=== PATIENT | female | born 2000 | race Caucasian/White ===

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

== ENCOUNTER → 2018-01-07 10:26 | Outpatient (REF) | payer OTHER, SELFPAY | LOC: LAB 10:26 | PROVIDERS: Visit Provider Nurse Practitioner Family | DX: N30.01 Acute cystitis with hematuria (principal) | CPT/HCPCS: 87086; 87088; 87186 ==

== ENCOUNTER → 2018-02-10 16:30 | Outpatient (CLI) | payer OTHER, SELFPAY ==
[2018-02-10 16:33] LABS: Microscopic, Urine URINE MICROSCOPIC (MICROSCOPIC)
[2018-02-10 16:56] LABS: Urine Pregnancy, HCG Qual. Negative (Negative)
[2018-02-10 17:13] LABS: Appearance,Urine CLEAR (Clear); Bilirubin,Urine Negative (Negative); Blood, Urine Negative (Negative); Color,Urine YELLOW (Yellow); Glucose,Urine (UA) Negative (Negative); Ketones,Urine Negative (Negative); Leukocyte Esterase,Urine Negative (Negative); Nitrate,Urine Negative (Negative); Protein,Urine Negative (Negative); Specific Gravity, Urine <= 1.005 (1.005-1.030); Urobilinogen,Urine 0.2 EU/dl (0.2)
[2018-02-10 17:30] LABS: Basophils % 0.3 % (0.1-2.0); Eosinophils # 0.2 K/mm3 (0.0-0.4); Eosinophils % 2.3 % (0.1-12.0); Hematocrit 44.9 % (37.0-47.0); Hemoglobin 14.6 g/dL (12.2-16.2); Lymphocytes % 25.9 K/mm3 (10-50); Mean Corpuscular HGB Conc 32.5 g/dL (31.8-35.4); Mean Corpuscular Hemoglobin 29.5 pg (27.0-31.2); Mean Corpuscular Volume 90.6 fl (81-99); Mean Platelet Volume 8.4 fl (7.4-10.4); Monocytes # 0.4 K/mm3 (0.1-1.0); Monocytes % 5.5 % (1.7-9.3); Neutrophils # 5.1 K/mm3 (1.8-7.8); Neutrophils % 65.9 % (37.0-80.0); Platelet Count 286 K/mm3 (142-424); Red Blood Count 4.95 M/mm3 (4.20-5.40); Red Cell Distribution Width 12.9 % (11.5-17.5); White Blood Count 7.8 K/mm3 (4.5-13.0)
[2018-02-10 17:45] LABS: Bacteria,Urine Trace /lpf; WBC,Urine Occasional #/hpf (0-3)
[2018-02-10 18:39] LABS: Anion Gap 12.9 mEq/L (5-15); Blood Urea Nitrogen 11 mg/dL (7-18); Carbon Dioxide 27 mmol/L (21.0-32.0); Chloride 102 mmol/L (98-107); Creatinine,Serum 0.64 mg/dL (0.55-1.02); Estimated Glomerular Filt Rate 120 ml/min (>60); GFR (African American) 145 ML/MIN (>60); Glucose 64 mg/dL (74-106); Potassium 3.9 mmoL/L (3.5-5.1); Sodium 138 mmol/L (136-145)
== END ==
PROVIDERS: Visit Provider Surgery
DX: Z01.818 Encounter for other preprocedural examination (principal); K42.0 Umbilical hernia with obstruction, without gangrene
CPT/HCPCS: 36415; 80048; 81001; 81025; 85025

== ENCOUNTER → 2018-02-20 10:32 | Outpatient (REF) | payer OTHER, SELFPAY ==
[2018-02-20 17:20] LABS: Free T4 (Free Thyroxine) 0.92 ng/dl (0.78-1.34); Thyroid Stimulating Hormone 1.66 uIU/ml (0.516-4.13)
== END ==
LOC: LAB 10:32
PROVIDERS: Visit Provider Nurse Practitioner Family
DX: R53.83 Other fatigue (principal)
CPT/HCPCS: 84439; 84443

== ENCOUNTER → 2018-04-30 08:21 | Outpatient (POV) | payer OTHER, SELFPAY ==
[2018-04-30 10:50] LABS: Basophils % 0.5 % (0.1-2.0); Eosinophils # 0.2 K/mm3 (0.0-0.4); Eosinophils % 2.9 % (0.1-12.0); Hematocrit 46.3 % (37.0-47.0); Hemoglobin 14.5 g/dL (12.2-16.2); Lymphocytes % 30.2 K/mm3 (10-50); Mean Corpuscular HGB Conc 31.3 g/dL (31.8-35.4); Mean Corpuscular Hemoglobin 28.3 pg (27.0-31.2); Mean Corpuscular Volume 90.4 fl (81-99); Mean Platelet Volume 8.4 fl (7.4-10.4); Monocytes # 0.3 K/mm3 (0.1-1.0); Monocytes % 4.9 % (1.7-9.3); Neutrophils # 4.1 K/mm3 (1.8-7.8); Neutrophils % 61.6 % (37.0-80.0); Platelet Count 301 K/mm3 (142-424); Red Blood Count 5.12 M/mm3 (4.20-5.40); Red Cell Distribution Width 13.1 % (11.5-17.5); White Blood Count 6.6 K/mm3 (4.5-13.0)
[2018-04-30 11:49] LABS: Alanine Aminotransferase 24 U/L (12-78); Albumin Level 4.3 gm/dL (3.4-5.0); Albumin/Globulin Ratio 1.3 (1.1-1.8); Alkaline Phosphatase 103 U/L (46-116); Anion Gap 11.6 mEq/L (5-15); Aspartate Amino Transferase 13 U/L (15-37); Bilirubin,Total 0.4 mg/dL (0.2-1.0); Blood Urea Nitrogen 5 mg/dL (7-18); Calcium 9.2 mg/dL (8.5-10.1); Carbon Dioxide 27 mmol/L (21.0-32.0); Chloride 105 mmol/L (98-107); Creatinine,Serum 0.68 mg/dL (0.55-1.02); Estimated Glomerular Filt Rate 111 ml/min (>60); GFR (African American) 135 ML/MIN (>60); Globulin 3.4 gm/dl (1.3-3.2); Glucose 90 mg/dL (74-106); Potassium 3.6 mmoL/L (3.5-5.1); Sodium 140 mmol/L (136-145); Thyroid Stimulating Hormone 2.64 uIU/ml (0.516-4.13); Total Protein,Serum 7.7 gm/dL (6.4-8.2)
[2018-05-01 09:11] LABS: HIV Screen 4th Generation wRfx Non Reactive (Non Reactive)
[2018-05-02 17:10] LABS: Neisseria gonorrhoeae, NAA Negative (Negative); Rapid Plasma Reagin Ab Titer Non Reactive (NonRea<1:1); Vitamin D 25 Hydroxy 13.5 ng/mL (30.0-100.0)
== END ==
PROVIDERS: Visit Provider Pediatrics
DX: F32.1 Major depressive disorder, single episode, moderate (principal); Z11.3 Encounter for screening for infections with a predominantly sexual mode of transmission
CPT/HCPCS: 36415; 80053; 82652; 84443; 85025; 86592; 86703; 87491; 87591; G0432

== ENCOUNTER → 2018-05-28 09:22 | Outpatient (POV) | payer OTHER, SELFPAY | PROVIDERS: Visit Provider Pediatrics | DX: Z00.00 Encounter for general adult medical examination without abnormal findings (principal) ==

== ENCOUNTER 2019-06-11 20:46 | Observation (INO) ==
--- NOTE | 2019-06-11 21:12 | Emergency Department Note ---
ED Disposition Clinical Impression: Overdose by acetaminophen Qualifiers: Encounter type: initial encounter Injury intent: intentional self-harm Qualified Code(s): T39.1X2A - Poisoning by 4-Aminophenol derivatives, intentional self-harm, initial encounter Bupropion overdose Qualifiers: Encounter type: initial encounter Injury intent: intentional self-harm Qualified Code(s): T43.292A - Poisoning by other antidepressants, intentional self-harm, initial encounter Acetaminophen toxicity Qualifiers: Encounter type: initial encounter Injury intent: intentional self-harm Qualifi ed Code(s): T39.1X2A - Poisoning by 4-Aminophenol derivatives, intentional self- harm, initial encounter Disposition: Admitted As Inpatient Condition on Discharge: Serious - Critical Care Critical Care Time: No Attestation: On 06/11/19, the high probability of a clinically significant, sudden or life threatening deterioration of the following system(s) required my full and direct attention, intervention and personal management. The time I documented below is in addition to time spent performing reported procedures but includes the following listed in this critical care notation. Medical Decision Making - Sandip Inquiry Pt receiving controlled substance: No Vital Signs: 06/11/19 20:56 06/11/19 23:04 06/11/19 23:30 Temperature 98.1 F 98.3 F Temperature Source Oral Oral Pulse Rate Pulse Rate [Right Brachial] 140 H 121 H 117 H Respiratory Rate 20 16 17 Blood Pressure Blood Pressure [Right Arm] 165/95 H 131/62 120/76 Blood Pressure Mean [Right Arm] 118 85 90 Blood Pressure Source [Right Arm] Automatic Cuff Blood Pressure Position [Right Arm] Supine 02 Sat by Pulse Oximetry 98 99 100 Oxygen Delivery Method Room Air 06/12/19 00:00 06/12/19 00:30 06/12/19 01:09 Temperature 98.5 F Temperature Source Pulse Rate 114 H Pulse Rate [Right Brachial] 119 H 117 H Respiratory Rate 18 18 18 Blood Pressure 135/88 Blood Pressure [Right Arm] 134/81 142/75 H Blood Pressure Mean [Right Arm] 98 97 Blood Pressure Source [Right Arm] Automatic Cuff Automatic Cuff Blood Pressure Position [Right Arm] Supine Supine 02 Sat by Pulse Oximetry 100 99 Oxygen Delivery Method Room Air Room Air - Lab Data Lab Results 06/11/19 21:07: Urine Color Yellow, Urine Appearance Clear, Urine pH 6.0, Ur Specific [place] >= 1.030, Urine Protein Negative, Urine Glucose (UA) Negative, Urine Ketones Trace, Urine Blood Negative, Urine Nitrate Negative, Urine Bilirubin Negative, Urine Urobilinogen 1.0, Ur Leukocyte Esterase Negative, Urine WBC Occasional, Ur Squamous Epith Cells Occasional, Urine Bacteria Trace 06/11/19 21:07: WBC 10.6, RBC 4.85, Hgb 14.2, Hct 42.9, MCV 88.4, MCH 29.2, MCHC 33.0, RDW 13.5, Plt Count 368, MPV 8.2, Neut % (Auto) 68.3, Lymph % (Auto) 24.4, [place] % (Auto) 5.8, Eos % (Auto) 1.1, Baso % (Auto) 0.3, Neut # (Auto) 7.2, Lymph # (Auto) 2.6, [place] # (Auto) 0.6, Eos # (Auto) 0.1, Baso # (Auto) 0.0 06/11/19 21:07: Urine HCG, Qual Negative 06/11/19 21:07: Sodium 140, Potassium 3.2 L, Chloride 105, Carbon Dioxide 24, Anion Gap 14.2, BUN 7, Creatinine 0.79, Estimated Creat Clear 171, Estimated GFR 93, Est GFR ( Amer) 112, Glucose 107 H, Calcium 9.1, Total Bilirubin 0.5, AST 19, ALT 27, Alkaline Phosphatase 82, Troponin I < 0.02, Total Protein 7.6, Albumin 4.1, Globulin 3.5 H, Albumin/Globulin Ratio 1.2, Salicylates 3.2, Acetaminophen 55.4 H, Plasma/Serum Alcohol 0 06/11/19 21:07: Urine Opiates Screen Negative, Urine Methadone Screen Negative, Ur Barbituates Screen Negative, Ur Phencyclidine Scrn Negative, Ur Amphetamines Screen Negative, U Benzodiazepines Scrn Negative, Urine Cocaine Screen Negative, U Marijuana (THC) Screen Negative 06/11/19 21:28: Acetaminophen Cancelled 06/11/19 23:31: Acetaminophen 194.4 H D Result diagrams: 06/11/19 21:07 06/11/19 21:07 Orders (Tests/Meds): ED MEDICATIONS Generic Name Dose Route Start Last Admin Trade Name Freq PRN Reason Stop Dose Admin Acetylcysteine 6,600 mg 06/12/19 05:00 Acetylcysteine 20% 30ml Bottle PO 06/14/19 21:01 Q4H JULIANO Sodium Chloride 1,000 mls @ 100 mls/hr 06/12/19 01:11 06/12/19 02:56 Sod Chlor 0.9% 1000ml Bag IV 07/12/19 01:10 100 mls/hr .Q10H JULIANO Administration Nicotine 21 mg 06/12/19 02:43 06/12/19 02:57 Nicoderm 21mg/24hr Patch TD 07/12/19 02:42 21 mg DAILYP PRN Administration Nicotine Cravings Ondansetron HCl 4 mg 06/12/19 01:11 06/12/19 02:57 Zofran 4mg/2ml Vial IV 07/12/19 01:10 4 mg Q8HP PRN Administration Nausea Sodium Chloride 10 ml 06/12/19 01:11 Saline Flush 10ml Syringe IV 07/12/19 01:10 NEEDED PRN Maintain IV Site Discontinued Medications Generic Name Dose Route Start Last Admin Trade Name Freq PRN Reason Stop Dose Admin Acetylcysteine 13,300 mg 06/12/19 00:42 06/12/19 01:01 Acetylcysteine 20% 30ml Bottle PO 06/12/19 00:43 1 dose ONCE ONE Administration Acetylcysteine 6,600 mg 06/12/19 05:00 Acetylcysteine 20% 30ml Bottle PO 06/14/19 21:01 Q4H JULIANO Sodium Chloride 1,000 mls @ 999 mls/hr 06/11/19 21:15 06/11/19 21:33 Sod Chlor 0.9% 1000ml Bag IV 06/11/19 22:15 999 mls/hr .Q1H1M JULIANO Administration Ondansetron HCl 4 mg 06/12/19 00:45 06/12/19 00:45 Zofran 4mg/2ml Vial IV 06/12/19 00:46 4 mg ONCE ONE Administration ORDERS Category Date Time Status Comprehensive Metabolic Panel AMLAB Lab 06/12/19 06:00 Ordered - Physician Consults Physician Consulted: Jayce Time: 00:15 Reason -: Admission Comment/Response: [facility] is on diversion. Agrees to admit the patient to the hospital. We discussed the patient's clinical information, including history, exam, laboratory and radiology results and ED course. Per hospital procedure, I will write temporary bridge inpatient orders on the patient. Specific orders requested by the admitting physician: N acetylcysteine treatment. Medical Decision Narrative: 9:15 PM: Discussed with Areli at [facility]. Recommend symptomatic treatment at this time. Benzodiazepines for any seizures. Do not administer treatment for Tylenol empirically, await Tylenol levels. 10:27 PM: Discussed with Areli at [facility] - 1st Tylenol level. Still recommends waiting for 4 hr level. Do not tx with NAC at this time. General Adult HPI - General Chief complaint: Overdose Stated complaint: Overdose Time Seen by Provider: 06/11/19 21:12 Mode of Arrival: Ambulatory Limitations: No Limitations Description of Symptoms (Recalled from ER Triage Doc. by RN): pt states that at approx 1915, she took an unknown amount of bupropion 100 mg tablets, patient states that she also took approx half a bottle of 500 mg tylenol. pt denies suicide attempt. pt states that she was "trying to numb the pain." pt states that she has a lot going on at this time. - History of Present Illness HPI narrative: States that at 7:15 PM she took approximately one half bottle of extra strength Tylenol, 500 mg tablets, from a 100 tablet bottle. Therefore, approximately 50 tablets. Took an estimated 15 tablets or so of bupropion 100 mg. Complains of a headache and abdominal pain. Has not vomited since the ingestion. States she was not suicidal when she did it, but took it to "numb the pain". However, when asked whether she thought that the amount of medication might kill her she said "I thought it might". No prior history of suicide attempts or psychiatric hospitalizations. - Related Data Home Medications Medication Instructions Recorded Confirmed No Known Home Medications 06/12/19 06/12/19 Allergies Allergy/AdvReac Type Severity Reaction Status Date / Time No Known Allergies Allergy Verified 11/21/18 15:21 [facility] History - Hepatitis A Screen Drug use history?: No High risk sexual behaviors?: No History of sexually transmitted infection?: No Currently employed?: No Childcare worker?: No Do you have indoor plumbing?: Yes Do you have electricity?: Yes Attestation statement:: This patient has been screened for Hepatitis A risk factors. I have reviewed the patient's past medical history: Yes Medical History: Reports:: Anxiety, Asthma, Depression, Hiatal Hernia, Migraine Denies:: Cancer, Diabetes Mellitus Type 1, Diabetes Mellitus Type 2, Internal Pacemaker, MRSA, Seizures Other Medical History: Reports: Other. Denies: Blood Transfusion Reaction Laterality Cases: Bilateral: Tonsillectomy Other Surgeries: Yes: Hernia Repair, Other. No: Pacemaker Amputation: No Fractures: No - Social History Smoking Status: Current every day smoker Tobacco Type: cigarettes # Packs/Day (cigarettes): 1 #Yrs smoked (if former smoker): 1 Alcohol Intake: current Alcohol Intake Frequency:: holidays/special occasions only Substance Use Type: denies use Occupational Status: employed Housing: house Household Members: family - Psychiatric History Pschychiatric History:: Reports:: Anxiety, Depression Family Hx:: Hyperlipidemia, Hypertension ROS Obtained: Yes All systems reviewed & no additional complaints - Constitutional Constitutional: Denies fever(s) - Cardiovascular Cardiovascular: Denies chest pain - Respiratory Respiratory: No dyspnea - Gastrointestinal Gastrointestingal: Reports: abdominal pain. Denies: vomiting - Neurologic Neurologic: Reports headache(s) Physical Exam - General General appearance: alert, anxious - Head Head exam: atraumatic, normocephalic - Eye Eye exam: Present: normal appearance, EOMI - ENT ENT exam: Present: mucous membranes moist - Neck Neck exam: Present: normal inspection, full ROM - Chest Chest inspection: Present: normal inspection, symmetric chest wall rise - Respiratory Respiratory exam: Present: normal lung sounds bilaterally. Absent: respiratory distress - Cardiovascular Cardiovascular exam: Present: regular rate, normal rhythm, normal heart sounds - Abdominal Exam Abdominal exam: Present: soft, tenderness, normal bowel sounds. Absent: distention, guarding, rebound, rigidity Abdominal tenderness: Present: diffuse - Extremities Exam Extremities exam: Present: normal inspection - Neurological Exam Neurological exam: Present: alert, oriented X3, CN II-XII intact. Absent: motor sensory deficit - Psychiatric Psychiatric exam: Present: anxious - Skin Skin exam: Present: warm, dry, intact, normal color
[2019-06-11 21:14] LABS: Microscopic, Urine URINE MICROSCOPIC (MICROSCOPIC)
[2019-06-11 21:20] LABS: Appearance,Urine CLEAR (Clear); Basophils % 0.3 % (0.1-2.0); Blood, Urine Negative (Negative); Color,Urine YELLOW (Yellow); Eosinophils # 0.1 K/mm3 (0.0-0.4); Eosinophils % 1.1 % (0.1-12.0); Glucose,Urine (UA) Negative (Negative); Hematocrit 42.9 % (37.0-47.0); Hemoglobin 14.2 g/dL (12.2-16.2); Ketones,Urine TRACE (Negative); Leukocyte Esterase,Urine Negative (Negative); Lymphocytes # 2.6 K/mm3 (0.7-4.5); Lymphocytes % 24.4 % (10-50); Mean Corpuscular Volume 88.4 fl (81-99); Mean Platelet Volume 8.2 fl (7.4-10.4); Monocytes # 0.6 K/mm3 (0.1-1.0); Monocytes % 5.8 % (1.7-9.3); Neutrophils # 7.2 K/mm3 (1.8-7.8); Neutrophils % 68.3 % (37.0-80.0); Platelet Count 368 K/mm3 (142-424); Protein,Urine Negative (Negative); Red Blood Count 4.85 M/mm3 (4.20-5.40); Red Cell Distribution Width 13.5 % (11.5-17.5); Specific Gravity, Urine >= 1.030 (1.005-1.030); White Blood Count 10.6 K/mm3 (4.5-13.0)
[2019-06-11 21:26] LABS: Amphetamine/Metha Screen,Urine Negative ng/mL (<1000); Barbiturates Screen,Urine Negative ng/mL (<200); Benzodiazepines Screen,Urine Negative ng/mL (<200); Cannabinoid Screen,Urine Negative ng/mL (<50); Cocaine Screen,Urine Negative ng/mL (<300); Methadone Screen,Urine Negative ng/mL (<300); Opiate Screen,Urine Negative ng/mL (<300); Phencyclidine Screen,Urine Negative ng/mL (<25)
[2019-06-11 21:36] LABS: Bilirubin,Urine Negative (Negative)
[2019-06-11 22:02] LABS: Acetaminophen 55.4 ug/mL (10-30); Alanine Aminotransferase 27 U/L (12-78); Albumin Level 4.1 gm/dL (3.4-5.0); Albumin/Globulin Ratio 1.2 (1.1-1.8); Alkaline Phosphatase 82 U/L (46-116); Anion Gap 14.2 mEq/L (5-15); Aspartate Amino Transferase 19 U/L (15-37); Bilirubin,Total 0.5 mg/dL (0.2-1.0); Blood Urea Nitrogen 7 mg/dL (7-18); Calcium 9.1 mg/dL (8.5-10.1); Carbon Dioxide 24 mmol/L (21.0-32.0); Chloride 105 mmol/L (98-107); Globulin 3.5 gm/dl (1.3-3.2); Glucose 107 mg/dL (74-106); Salicylate 3.2 mg/dL (2.8-20.0); Sodium 140 mmol/L (136-145); Total Protein,Serum 7.6 gm/dL (6.4-8.2)
[2019-06-11 22:04] LABS: Ethyl Alcohol 0 mg/dL (0-99)
[2019-06-11 22:10] LABS: WBC,Urine Occasional #/hpf (0-3)
[2019-06-11 22:11] LABS: Bacteria,Urine Trace /lpf; Squamous Epithelial Cell,Urine Occasional #/hpf (0-5)
[2019-06-12 06:51] LABS: Albumin Level 3.7 gm/dL (3.4-5.0); Albumin/Globulin Ratio 1.1 (1.1-1.8); Anion Gap 15.4 mEq/L (5-15); Bilirubin,Total 0.7 mg/dL (0.2-1.0); Calcium 8.8 mg/dL (8.5-10.1); Globulin 3.3 gm/dl (1.3-3.2)
--- NOTE | 2019-06-12 08:13 | Pharmacy Consult Notes ---
[facility] Pharmacy VTE Monitoring - Patient Demographics Admission date: 06/11/19 Report Date: 06/12/19 Time: 08:13 Allergies/Adverse Reactions: Patient Allergies No Known Allergies Allergy (Verified 11/21/18 15:21) Height: 1.73 m Weight: 103.447 kg Patient Problems: Current Active Problems Overdose by acetaminophen (Acute) Bupropion overdose (Acute) Acetaminophen toxicity (Acute) - VTE Risk Labs: VTE Related Lab Results Hgb 14.2 g/dL (12.2-16.2) 06/11/19 21:07 Hct 42.9 % (37.0-47.0) 06/11/19 21:07 Plt Count 368 K/mm3 (142-424) 06/11/19 21:07 BUN 6 mg/dL (7-18) L 06/12/19 05:30 Creatinine 0.70 mg/dL (0.55-1.02) 06/12/19 05:30 Estimated Creat Clear 209 mL/min (50-200) 06/12/19 05:30 Was VTE Risk Assessment Performed: Yes VTE Score: 2 VTE Risk Level: Very Low Risk - Prophylaxis VTE Prophylaxis Ordered?: Yes Types of VTE Prophylaxis: TEDS Knee High Location of Applied Device: Bilateral Lower Extremeties - VTE Diagnosis Confirmed Treatment or plan recommended: Continue Current Treatment
[2019-06-12 08:49] LABS: Basophils % 0.1 % (0.1-2.0); Eosinophils % 0.1 % (0.1-12.0); Hematocrit 40.5 % (37.0-47.0); Hemoglobin 12.9 g/dL (12.2-16.2); Lymphocytes # 0.8 K/mm3 (0.7-4.5); Lymphocytes % 9.3 % (10-50); Mean Corpuscular HGB Conc 31.9 g/dL (31.8-35.4); Mean Corpuscular Volume 90.1 fl (81-99); Mean Platelet Volume 9.3 fl (7.4-10.4); Monocytes # 0.2 K/mm3 (0.1-1.0); Monocytes % 2.4 % (1.7-9.3); Neutrophils % 88.2 % (37.0-80.0); Platelet Count 303 K/mm3 (142-424); Red Blood Count 4.49 M/mm3 (4.20-5.40); Red Cell Distribution Width 13.3 % (11.5-17.5); White Blood Count 9.1 K/mm3 (4.5-13.0)
[2019-06-12 09:22] LABS: Hypochromasia 1+; Lymphocytes % 6 % (10-50); Monocytes % 1 % (2-9); Neutrophils % 93 % (42-76); Total Cells Counted 100
--- NOTE | 2019-06-12 13:39 | History & Physical Report ---
*Admission Date: 06/11/19 *Chief complaint: overdose of tylenol *History of present illness: 18-year-old female presents to the ER with complaints of taking a half a bottle of extra strength Tylenol, 500 mg tablets from 100 tabs per bottle. Patient states she also took approximately 15 or so bupropion 100 mg. Patient presented to the ER with complaints of a headache and abdominal pain. Patient states she was not trying to hurt herself she was just trying to numb the pain. Patient reports no prior history of suicide attempts. Patient reports she and her girlfriend had broken up and she was having a hard time dealing with the break- up. Patient states she was home alone when she took the medicine but after she took the medicine she called for help. Patient admitted for Tylenol toxicity started on Mucomyst and monitoring of labs. . [facility] History I have reviewed the patient's past medical history: Yes Medical History: Reports:: Anxiety, Asthma, Depression, Hiatal Hernia, Migraine Denies:: Cancer, Diabetes Mellitus Type 1, Diabetes Mellitus Type 2, Internal Pacemaker, MRSA, Seizures *Have you ever received a pneumonia vaccine?: No *Have you received a flu vaccine this season?: Yes Other Medical History: Reports: Other. Denies: Blood Transfusion Reaction Laterality Cases: Bilateral: Tonsillectomy Other Surgeries: Yes: Hernia Repair, Other. No: Pacemaker Amputation: No Fractures: No - *Social History Educational Level: Completed High School Smoking Status: Current every day smoker Tobacco Type: cigarettes # Packs/Day (cigarettes): 1 #Yrs smoked (if former smoker): 1 Alcohol Intake: never Alcohol Intake Frequency:: holidays/special occasions only Substance Use Type: denies use *Occupational Status:: employed Housing: house Household Members: family *Travel in the last 8 weeks: None - Psychiatric History Expresses thoughts of harming self/others: None Suicide Plan Description: No Plan Pschychiatric History:: Reports:: Anxiety, Depression Denies:: Suicide Attempt Family Hx:: Hyperlipidemia, Hypertension Review of Systems - Review of Systems Review of systems:: pertinent systems reviewed and negative unless documented below - Constitutional Denies body ache(s), Denies fatigue, Denies fever(s) - Eyes Denies change in vision - ENT Denies change in voice - *Cardiovascular Denies chest pain with activity, Denies shortness of breath - *Respiratory Denies chest congestion, Denies shortness of breath with activity - *Gastrointestinal Denies bloating, Denies nausea, Denies vomiting - *Genitourinary Denies hot flashes - *Musculoskeletal Denies joint pain, Denies decreased muscle mass - Integumentary/Breasts Denies rash - *Neurologic Reports headache(s), Denies abnormal walking - Psychiatric Reports behavioral changes, Reports other - Endocrine Denies excessive sweating - Hematologic/Lymphatic Denies easy bruising - Allergic/Immunologic Denies itchy eyes Meds Home Medications Medication Instructions Recorded Confirmed Type No Known Home Medications 06/12/19 06/12/19 History Allergies Allergy/AdvReac Type Severity Reaction Status Date / Time No Known Allergies Allergy Verified 11/21/18 15:21 Exam Vital signs and Labs for Last 24 Hours: Temp Pulse Resp BP Pulse Ox 98.3 F 80 17 130/74 96 06/12/19 11:48 06/12/19 12:00 06/12/19 12:00 06/12/19 12:00 06/12/19 12:00 Laboratory Results - last 24 hr 06/11/19 21:07: Urine Color Yellow, Urine Appearance Clear, Urine pH 6.0, Ur Specific [place] >= 1.030, Urine Protein Negative, Urine Glucose (UA) Negative, Urine Ketones Trace, Urine Blood Negative, Urine Nitrate Negative, Urine Bilirubin Negative, Urine Urobilinogen 1.0, Ur Leukocyte Esterase Negative, Urine WBC Occasional, Ur Squamous Epith Cells Occasional, Urine Bacteria Trace 06/11/19 21:07: WBC 10.6, RBC 4.85, Hgb 14.2, Hct 42.9, MCV 88.4, MCH 29.2, MCHC 33.0, RDW 13.5, Plt Count 368, MPV 8.2, Neut % (Auto) 68.3, Lymph % (Auto) 24.4, [place] % (Auto) 5.8, Eos % (Auto) 1.1, Baso % (Auto) 0.3, Neut # (Auto) 7.2, Lymph # (Auto) 2.6, [place] # (Auto) 0.6, Eos # (Auto) 0.1, Baso # (Auto) 0.0 06/11/19 21:07: Urine HCG, Qual Negative 06/11/19 21:07: Sodium 140, Potassium 3.2 L, Chloride 105, Carbon Dioxide 24, Anion Gap 14.2, BUN 7, Creatinine 0.79, Estimated Creat Clear 171, Estimated GFR 93, Est GFR ( Amer) 112, Glucose 107 H, Calcium 9.1, Total Bilirubin 0.5, AST 19, ALT 27, Alkaline Phosphatase 82, Troponin I < 0.02, Total Protein 7.6, Albumin 4.1, Globulin 3.5 H, Albumin/Globulin Ratio 1.2, Salicylates 3.2, Acetaminophen 55.4 H, Plasma/Serum Alcohol 0 06/11/19 21:07: Urine Opiates Screen Negative, Urine Methadone Screen Negative, Ur Barbituates Screen Negative, Ur Phencyclidine Scrn Negative, Ur Amphetamines Screen Negative, U Benzodiazepines Scrn Negative, Urine Cocaine Screen Negative, U Marijuana (THC) Screen Negative 06/11/19 21:28: Acetaminophen Cancelled 06/11/19 23:31: Acetaminophen 194.4 H D 06/12/19 05:30: Sodium 143, Potassium 3.4 L, Chloride 108 H, Carbon Dioxide 23, Anion Gap 15.4 H, BUN 6 L, Creatinine 0.70, Estimated Creat Clear 209, Estimated GFR 107, Est GFR ( Amer) 129, Glucose 151 H D, Calcium 8.8, Total Bilirubin 0.7, AST 16, ALT 22, Alkaline Phosphatase 76, Total Protein 7.0, Albumin 3.7, Globulin 3.3 H, Albumin/Globulin Ratio 1.1 06/12/19 05:30: Acetaminophen 44.2 H 06/12/19 05:30: WBC 9.1, RBC 4.49, Hgb 12.9, Hct 40.5, MCV 90.1, MCH 28.7, MCHC 31.9, RDW 13.3, Plt Count 303, MPV 9.3, Neut % (Auto) 88.2 H, Lymph % (Auto) 9.3 L, [place] % (Auto) 2.4, Eos % (Auto) 0.1, Baso % (Auto) 0.1, Neut # (Auto) 8.0 H, Lymph # (Auto) 0.8, [place] # (Auto) 0.2, Eos # (Auto) 0.0, Baso # (Auto) 0.0, Total Counted 100, Neutrophils % (Manual) 93 H, Lymphocytes % (Manual) 6 L, Monocytes % (Manual) 1 L, Platelet Estimate Normal, Hypochromasia 1+ 06/12/19 12:13: Acetaminophen 1.5 L I & O for Last 24 hours: Intake & Output 06/10/19 06/11/19 06/12/19 06/13/19 11:59 11:59 11:59 11:59 Intake Total 1783 / 1783 240 / 240 Balance 1783 / 1783 240 / 240 Weight 228 lb 1 oz - Constitutional no acute distress - *Routine HEENT Exam Head: Present: normocephalic Eye: Present: PERRL ENT: Present: mucous membranes moist - *Routine Neck Exam Present: supple. Absent: lymphadenopathy - *Routine Respiratory Exam Present: CTA bilaterally - *Routine Cardiovascular Exam Present: RRR - *Routine Abdominal Exam Present: soft, normoactive bowel sounds. Absent: tenderness - *Routine Extremities Exam Present: full ROM. Absent: cyanosis, clubbing, edema - *Routine Skin Exam Present: intact, warm. Absent: rash - *Routine Neurological Exam Present: alert, oriented X3 - Routine Psychiatric Exam Present: normal affect Assessment and Plan (1) Acetaminophen toxicity Current visit: Yes Status: Acute Qualifiers: Encounter type: initial encounter Injury intent: intentional self-harm Qualified Code(s): T39.1X2A - Poisoning by 4-Aminophenol derivatives, intentional self-harm, initial encounter Category: Medical Code(s): T39.1X1A - Poisoning by 4-Aminophenol derivatives, accidental (unintentional), initial encounter (2) Bupropion overdose Current visit: Yes Status: Acute Qualifiers: Encounter type: initial encounter Injury intent: intentional self-harm Qualified Code(s): T43.292A - Poisoning by other antidepressants, intentional self-harm, initial encounter Category: Medical Code(s): T43.291A - Poisoning by other antidepressants, accidental (unintentional), initial encounter (3) Overdose by acetaminophen Current visit: Yes Status: Acute Qualifiers: Encounter type: initial encounter Injury intent: intentional self-harm Qualified Code(s): T39.1X2A - Poisoning by 4-Aminophenol derivatives, intentional self-harm, initial encounter Category: Medical Code(s): T39.1X1A - Poisoning by 4-Aminophenol derivatives, accidental (unintentional), initial encounter (4) Abdominal pain Current visit: No Status: Acute Qualifiers: Abdominal location: unspecified location Qualified Code(s): R10.9 - Unspecified abdominal pain Category: Medical Code(s): R10.9 - Unspecified abdominal pain - Assessment and plan all Dx Assessment and Plan for all problems:: arturo will round later today, all orders per arturo
--- NOTE | 2019-06-12 16:35 | Consult Report ---
*Admission Date: 06/11/19 *Reason for consult:: overdose *History of present illness: I was consulted on patient for accidental overdose. She was interviewed in her room. She is in there with her 'friend'. They are both in the bed together at this time. The friend stayed in the room for the interview. She states she is here for taking a lot of pills last night. She states that she 'wanted to numb the pain'. She states that the pain was her emotions. She was upset related to her girlfriend told her that she was a piece of shit and that she needed to kill herself. She denies that her girlfriend is the one in the bed with her right now. She states that she then called the friend that is with her now; who called her parents; and they brought her to the ER. They said that she went crazy; shaking; did not know what she was doing; what was going on; and she was not herself. She states that this is when they brought her here. -reports she took 1/2 a bottle of pills; of tylenol -she states that she did want to stop when she was doing this -but she also wanted to go to sleep and not feel the pain any longer -denies that she wanted to kill herself -she states that she used to take medicines for depression and anxiety -she took this over the summer when her girlfriend was at training for the [employer] -she has not taken these in some time. She states that Dr. Camarillo gave them to her -states she has anxiety over everything -she works at [employer] and a lot of anxiety over this -getting her work done -the patients there are hard to deal with sometimes -she lives alone -she states that she has been on mucomyst and has been throwing up a lot -she states that she does not want to do medicines at this time -she wants to do therapy so she can talk about things and not just hide them -at this time; she denies SI/HI/SH/AVH RECOMMENDATIONS: 1. Refer to therapy places here in [place]. List given to nurse taking care of her on the floor today. -also given the number to my office; in case she changes her mind about medications TIME IN: 1140am TIME OUT: 1210pm [facility] History Medical History: Reports:: Anxiety, Asthma, Depression, Hiatal Hernia, Migraine Denies:: Cancer, Diabetes Mellitus Type 1, Diabetes Mellitus Type 2, Internal Pacemaker, MRSA, Seizures *Have you ever received a pneumonia vaccine?: No *Have you received a flu vaccine this season?: Yes Other Medical History: Reports: Other. Denies: Blood Transfusion Reaction Laterality Cases: Bilateral: Tonsillectomy Other Surgeries: Yes: Hernia Repair, Other. No: Pacemaker Amputation: No Fractures: No - *Social History Educational Level: Completed High School Smoking Status: Current every day smoker Tobacco Type: cigarettes # Packs/Day (cigarettes): 1 #Yrs smoked (if former smoker): 1 Alcohol Intake: never Alcohol Intake Frequency:: holidays/special occasions only Substance Use Type: denies use *Occupational Status:: employed Housing: house Household Members: family *Travel in the last 8 weeks: None - Psychiatric History Expresses thoughts of harming self/others: None Suicide Plan Description: No Plan Pschychiatric History:: Reports:: Anxiety, Depression Denies:: Suicide Attempt Family Hx:: Hyperlipidemia, Hypertension Review of Systems - *Neurologic Reports headache(s) Meds Home Medications Medication Instructions Recorded Confirmed Type No Known Home Medications 06/12/19 06/12/19 History Allergies Allergy/AdvReac Type Severity Reaction Status Date / Time No Known Allergies Allergy Verified 11/21/18 15:21 Exam Vital signs and Labs for Last 24 Hours: Temp Pulse Resp BP Pulse Ox 99.1 F 90 18 130/74 96 06/12/19 16:00 06/12/19 14:00 06/12/19 14:00 06/12/19 14:00 06/12/19 14:00 Laboratory Results - last 24 hr 06/11/19 21:07: Urine Color Yellow, Urine Appearance Clear, Urine pH 6.0, Ur Specific [place] >= 1.030, Urine Protein Negative, Urine Glucose (UA) Negative, Urine Ketones Trace, Urine Blood Negative, Urine Nitrate Negative, Urine Bilirubin Negative, Urine Urobilinogen 1.0, Ur Leukocyte Esterase Negative, Uri ne WBC Occasional, Ur Squamous Epith Cells Occasional, Urine Bacteria Trace 06/11/19 21:07: WBC 10.6, RBC 4.85, Hgb 14.2, Hct 42.9, MCV 88.4, MCH 29.2, MCHC 33.0, RDW 13.5, Plt Count 368, MPV 8.2, Neut % (Auto) 68.3, Lymph % (Auto) 24.4, [place] % (Auto) 5.8, Eos % (Auto) 1.1, Baso % (Auto) 0.3, Neut # (Auto) 7.2, Lymph # (Auto) 2.6, [place] # (Auto) 0.6, Eos # (Auto) 0.1, Baso # (Auto) 0.0 06/11/19 21:07: Urine HCG, Qual Negative 06/11/19 21:07: Sodium 140, Potassium 3.2 L, Chloride 105, Carbon Dioxide 24, Anion Gap 14.2, BUN 7, Creatinine 0.79, Estimated Creat Clear 171, Estimated GFR 93, Est GFR ( Amer) 112, Glucose 107 H, Calcium 9.1, Total Bilirubin 0.5, AST 19, ALT 27, Alkaline Phosphatase 82, Troponin I < 0.02, Total Protein 7.6, Albumin 4.1, Globulin 3.5 H, Albumin/Globulin Ratio 1.2, Salicylates 3.2, Acetaminophen 55.4 H, Plasma/Serum Alcohol 0 06/11/19 21:07: Urine Opiates Screen Negative, Urine Methadone Screen Negative, Ur Barbituates Screen Negative, Ur Phencyclidine Scrn Negative, Ur Amphetamines Screen Negative, U Benzodiazepines Scrn Negative, Urine Cocaine Screen Negative, U Marijuana (THC) Screen Negative 06/11/19 21:28: Acetaminophen Cancelled 06/11/19 23:31: Acetaminophen 194.4 H D 06/12/19 05:30: Sodium 143, Potassium 3.4 L, Chloride 108 H, Carbon Dioxide 23, Anion Gap 15.4 H, BUN 6 L, Creatinine 0.70, Estimated Creat Clear 209, Estimated GFR 107, Est GFR ( Amer) 129, Glucose 151 H D, Calcium 8.8, Total Bilirubin 0.7, AST 16, ALT 22, Alkaline Phosphatase 76, Total Protein 7.0, Albumin 3.7, Globulin 3.3 H, Albumin/Globulin Ratio 1.1 06/12/19 05:30: Acetaminophen 44.2 H 06/12/19 05:30: WBC 9.1, RBC 4.49, Hgb 12.9, Hct 40.5, MCV 90.1, MCH 28.7, MCHC 31.9, RDW 13.3, Plt Count 303, MPV 9.3, Neut % (Auto) 88.2 H, Lymph % (Auto) 9.3 L, [place] % (Auto) 2.4, Eos % (Auto) 0.1, Baso % (Auto) 0.1, Neut # (Auto) 8.0 H, Lymph # (Auto) 0.8, [place] # (Auto) 0.2, Eos # (Auto) 0.0, Baso # (Auto) 0.0, Total Counted 100, Neutrophils % (Manual) 93 H, Lymphocytes % (Manual) 6 L, Monocytes % (Manual) 1 L, Platelet Estimate Normal, Hypochromasia 1+ 06/12/19 12:13: Acetaminophen 1.5 L I & O for Last 24 hours: Intake & Output 06/10/19 06/11/19 06/12/19 06/13/19 11:59 11:59 11:59 11:59 Intake Total 1783 / 1783 240 / 240 Balance 1783 / 1783 240 / 240 Weight 228 lb 1 oz Internal Medicine - CN: Reslt - Labs CBC & Chem 7: 06/12/19 05:30 06/12/19 05:30 Labs: Short CBC 06/11/19 06/12/19 Range/Units 21:07 05:30 WBC 10.6 9.1 (4.5-13.0) K/mm3 Hgb 14.2 12.9 (12.2-16.2) g/dL Hct 42.9 40.5 (37.0-47.0) % Plt Count 368 303 (142-424) K/mm3 BMP 06/11/19 06/12/19 21:07 05:30 Sodium 140 143 Potassium 3.2 L 3.4 L Chloride 105 108 H Carbon Dioxide 24 23 BUN 7 6 L Creatinine 0.79 0.70 Glucose 107 H 151 H D Calcium 9.1 8.8 Cardiac Enzymes 06/11/19 Range/Units 21:07 Troponin I < 0.02 (0.00-0.06) ng/ml Liver Function 06/11/19 06/12/19 Range/Units 21:07 05:30 Total Bilirubin 0.5 0.7 (0.2-1.0) mg/dL AST 19 16 (15-37) U/L ALT 27 22 (12-78) U/L Alkaline Phosphatase 82 76 (46-116) U/L Albumin 4.1 3.7 (3.4-5.0) gm/dL Urine 06/11/19 Range/Units 21:07 Urine Color Yellow (Yellow) Urine Appearance Clear (Clear) Urine pH 6.0 (5.0-8.5) Ur Specific [place] >= 1.030 (1.005-1.030) Urine Protein Negative (Negative) Urine Glucose (UA) Negative (Negative)
[2019-06-13 06:39] LABS: Basophils % 0.3 % (0.1-2.0); Eosinophils # 0.1 K/mm3 (0.0-0.4); Eosinophils % 0.9 % (0.1-12.0); Hematocrit 37.5 % (37.0-47.0); Hemoglobin 11.9 g/dL (12.2-16.2); Lymphocytes # 1.9 K/mm3 (0.7-4.5); Lymphocytes % 33.8 % (10-50); Mean Corpuscular HGB Conc 31.8 g/dL (31.8-35.4); Mean Corpuscular Volume 90.2 fl (81-99); Mean Platelet Volume 7.8 fl (7.4-10.4); Monocytes # 0.3 K/mm3 (0.1-1.0); Monocytes % 5.8 % (1.7-9.3); Neutrophils # 3.4 K/mm3 (1.8-7.8); Neutrophils % 59.3 % (37.0-80.0); Platelet Count 259 K/mm3 (142-424); Red Blood Count 4.16 M/mm3 (4.20-5.40); Red Cell Distribution Width 13.9 % (11.5-17.5); White Blood Count 5.7 K/mm3 (4.5-13.0)
[2019-06-13 07:36] LABS: Albumin Level 3.3 gm/dL (3.4-5.0); Albumin/Globulin Ratio 1.2 (1.1-1.8); Bilirubin,Total 0.3 mg/dL (0.2-1.0); Calcium 8.5 mg/dL (8.5-10.1); Globulin 2.8 gm/dl (1.3-3.2); Total Protein,Serum 6.1 gm/dL (6.4-8.2)
--- NOTE | 2019-06-13 07:53 | Electrocardiograph Report ---
APPROVED REPORT Exam: Resting ECG HR:116 bpm ECG Measurements Heart Rate 116 AXES HI 130 P 15 QRSd 78 QRS 36 QT 316 T20 QTc 439 <Conclusion> Sinus tachycardia Otherwise normal ECG Electronically signed by : Brandt Figueroa, 06/13/2019 07:52:45
--- NOTE | 2019-06-13 09:32 | Progress Note ---
Internal Medicine - PN: Subj *Date: 06/13/19 *Time: :31 Interval history: Patient sleeping when entering the room. Patient states she is feeling well today no complaints. Exam Vital signs and Labs for Last 24 Hours: Temp Pulse Resp BP Pulse Ox 97.8 F 86 17 129/80 95 06/13/19 07:56 06/13/19 06:00 06/12/19 20:00 06/13/19 06:00 06/13/19 06:00 Laboratory Results - last 24 hr 06/12/19 12:13: Acetaminophen 1.5 L 06/13/19 06:25: WBC 5.7 D, RBC 4.16 L, Hgb 11.9 L, Hct 37.5, MCV 90.2, MCH 28.7, MCHC 31.8, RDW 13.9, Plt Count 259, MPV 7.8, Neut % (Auto) 59.3, Lymph % (Auto) 33.8, [place] % (Auto) 5.8, Eos % (Auto) 0.9, Baso % (Auto) 0.3, Neut # (Auto) 3.4, Lymph # (Auto) 1.9, [place] # (Auto) 0.3, Eos # (Auto) 0.1, Baso # (Auto) 0.0 06/13/19 06:25: Sodium 144, Potassium 3.0 L, Chloride 109 H, Carbon Dioxide 22, Anion Gap 16.0 H, BUN 4 L D, Creatinine 0.57, Estimated Creat Clear 257, Estimated GFR 135, Est GFR ( Amer) 164 D, Glucose 124 H, Calcium 8.5, Total Bilirubin 0.3, AST 15, ALT 20, Alkaline Phosphatase 67, Total Protein 6.1 L, Albumin 3.3 L D, Globulin 2.8, Albumin/Globulin Ratio 1.2 I & O for Last 24 hours: Intake & Output 06/10/19 06/11/19 06/12/19 06/13/19 11:59 11:59 11:59 11:59 Intake Total 1782 3099 / 3099 Balance 1782 3099 / 3099 Weight 228 lb 1 oz 228 lb - Constitutional no acute distress - *Routine HEENT Exam Head: Present: normocephalic Eye: Present: PERRL ENT: Present: mucous membranes moist - *Routine Neck Exam Present: full ROM - *Routine Respiratory Exam Present: CTA bilaterally - *Routine Cardiovascular Exam Present: RRR - *Routine Abdominal Exam Present: soft, normoactive bowel sounds, tenderness - *Routine Extremities Exam Present: full ROM. Absent: cyanosis, clubbing, edema - *Routine Skin Exam Present: intact, warm. Absent: rash - *Routine Neurological Exam Present: alert, oriented X3 - Routine Psychiatric Exam Present: normal affect Assessment and Plan (1) Acetaminophen toxicity Current visit: Yes Status: Acute Qualifiers: Encounter type: initial encounter Injury intent: intentional self-harm Qualified Code(s): T39.1X2A - Poisoning by 4-Aminophenol derivatives, intentional self-harm, initial encounter Category: Medical Code(s): T39.1X1A - Poisoning by 4-Aminophenol derivatives, accidental (unintentional), initial encounter (2) Bupropion overdose Current visit: Yes Status: Acute Qualifiers: Encounter type: initial encounter Injury intent: intentional self-harm Qualified Code(s): T43.292A - Poisoning by other antidepressants, intentional self-harm, initial encounter Category: Medical Code(s): T43.291A - Poisoning by other antidepressants, accidental (unintentional), initial encounter (3) Overdose by acetaminophen Current visit: Yes Status: Acute Qualifiers: Encounter type: initial encounter Injury intent: intentional self-harm Qualified Code(s): T39.1X2A - Poisoning by 4-Aminophenol derivatives, intentional self-harm, initial encounter Category: Medical Code(s): T39.1X1A - Poisoning by 4-Aminophenol derivatives, accidental (unintentional), initial encounter (4) Abdominal pain Current visit: No Status: Acute Qualifiers: Abdominal location: unspecified location Qualified Code(s): R10.9 - Unspecified abdominal pain Category: Medical Code(s): R10.9 - Unspecified abdominal pain - Assessment and plan all Dx Assessment and Plan for all problems:: Rounded with Dr. Gonzalez all orders per Lisa Continue Mucomyst Transfer out of stepdown Up out of bed Stop IV fluids.
--- NOTE | 2019-06-13 12:35 | Discharge Summary ---
General - General Admission date:: 06/12/19 Discharge date: 06/13/19 HPI HPI: 18-year-old female presents to the ER with complaints of taking a half a bottle of extra strength Tylenol, 500 mg tablets from 100 tabs per bottle. Patient states she also took approximately 15 or so bupropion 100 mg. Patient presented to the ER with complaints of a headache and abdominal pain. Patient states she was not trying to hurt herself she was just trying to numb the pain. Patient reports no prior history of suicide attempts. Patient reports she and her girlfriend had broken up and she was having a hard time dealing with the break- up. Patient states she was home alone when she took the medicine but after she took the medicine she called for help. Patient admitted for Tylenol toxicity started on Mucomyst and monitoring of labs. . Hospital Course Hospital Course: Mucomyst Monitoring of labs Poison control Monitoring of vital signs Psych nurse practitioner consult see note Patient states she did not intend to kill herself she does want to numb the pain. Patient has outpatient therapy arranged and will be given the number to Tereza Vargas in case she wants to try medications. Per poison control patient has completed enough Mucomyst to consider completing her therapy. Girl friend has been at bedside Objective Vital signs: Temp Pulse Resp BP Pulse Ox 97.9 F 94 H 18 151/78 H 98 06/13/19 10:55 06/13/19 10:55 06/13/19 10:55 06/13/19 10:55 06/13/19 10:55 no acute distress - *Routine HEENT Exam Head: Present: normocephalic Eye: Present: PERRL ENT: Present: mucous membranes moist - *Routine Respiratory Exam Present: CTA bilaterally - *Routine Cardiovascular Exam Present: RRR - *Routine Abdominal Exam Present: soft, normoactive bowel sounds - *Routine Extremities Exam Present: full ROM - *Routine Skin Exam Present: intact - *Routine Neurological Exam Present: alert, oriented X3 - Routine Psychiatric Exam Present: normal affect Results Labs on day of discharge: Labs from last 24 hours 06/13/19 06/13/19 06/12/19 06:25 06:25 12:13 WBC 5.7 D RBC 4.16 L Hgb 11.9 L Hct 37.5 MCV 90.2 MCH 28.7 MCHC 31.8 RDW 13.9 Plt Count 259 MPV 7.8 Neut % (Auto) 59.3 Lymph % (Auto) 33.8 [place] % (Auto) 5.8 Eos % (Auto) 0.9 Baso % (Auto) 0.3 Neut # (Auto) 3.4 Lymph # (Auto) 1.9 [place] # (Auto) 0.3 Eos # (Auto) 0.1 Baso # (Auto) 0.0 Sodium 144 Potassium 3.0 L Chloride 109 H Carbon Dioxide 22 Anion Gap 16.0 H BUN 4 L D Creatinine 0.57 Estimated Creat Clear 257 Estimated GFR 135 Est GFR ( Amer) 164 D Glucose 124 H Calcium 8.5 Total Bilirubin 0.3 AST 15 ALT 20 Alkaline Phosphatase 67 Total Protein 6.1 L Albumin 3.3 L D Globulin 2.8 Albumin/Globulin Ratio 1.2 Acetaminophen 1.5 L - Additional Comments Rounded with Dr. Gonzalez all orders per Lisa DS: Diagnosis - Discharge Diagnosis (1) Acetaminophen toxicity Status: Acute (2) Bupropion overdose Status: Acute (3) Overdose by acetaminophen Status: Acute (4) Abdominal pain Status: Acute Discharge Plan - Patient Discharge Instructions ACTIVITY: Continue current activity DIET: continue same diet Patient Instructions: DI for Acetaminophen Poisoning, DI for Drug Overdose in Adults - Follow up Plan Follow up with: [facility] [Other] - 06/16/19 12:30 pm (Saturday 06/16 @ 12:30) Tamia Duarte APRN [Primary Care Provider] - 06/16/19 Tereza Vargas APRN [Nurse Practitioner] - 1 week Disposition: Home, Self-Fpc Medications: Home Medications Medication Instructions Recorded Confirmed Type No Known Home Medications 06/12/19 06/12/19 History Prescriptions/Medication Reconciliation: No Action No Known Home Medications - Problem Reconciliation Problems Reviewed?: Yes
== END 2019-06-13 15:40 | disposition home or self-care (01) ==
LOC: ER 20:46 → 2ND 06-12 00:29 → INTOOBSV 06-12 01:10 → 2ND 06-12 01:12
PROVIDERS: ADMIT Internal Medicine Adolescent Medicine; ATTEND Emergency Medicine
CPT/HCPCS: 36415; 80053; 80305; 80329; 81001; 81025; 84484; 85007; 85025; 93005; 96365; 96375; 99284; G0378; J2405

== ENCOUNTER 2020-04-04 20:34 | Emergency (ER) | payer MEDICAID, SELFPAY ==
[2020-04-04 20:40] VITALS: BP 126/73; PULSE 100; RESP 14; TEMP 36.7; O2SAT 99; BMI 22.8
[2020-04-04 20:46] VITALS: BP 126/73; PULSE 100; RESP 14; TEMP 36.7; O2SAT 99; BMI 28.8
--- NOTE | 2020-04-04 20:49 | XR_ITS ---
PROCEDURE: XR NASAL BONES MIN 3V CLINICAL INDICATION: pain COMPARISON: No exams were available for comparison FINDINGS: No obvious fracture or dislocation IMPRESSION: No acute findings. Dictated by: Pawel Cowan MD 04/04/2020 21:07 Electronically signed by Pawel Cowan MD in [place] 04/04/2020 21:07
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
[2020-04-04 21:05] VITALS: BP 126/73; PULSE 100; RESP 14; TEMP 36.7; O2SAT 99
== END 2020-04-04 21:22 | disposition home or self-care (01) ==
PROVIDERS: Emergency Provider Nurse Practitioner
DX: S01.21XA Laceration without foreign body of nose, initial encounter (principal); Y04.0XXA Assault by unarmed brawl or fight, initial encounter; Y92.9 Unspecified place or not applicable; F41.8 Other specified anxiety disorders; J45.909 Unspecified asthma, uncomplicated; F17.210 Nicotine dependence, cigarettes, uncomplicated; Z90.09 Acquired absence of other part of head and neck
CPT/HCPCS: 12011; 70160; 99202

== ENCOUNTER 2020-07-16 14:01 | Emergency (ER) | payer MEDICAID, SELFPAY ==
[2020-07-16 14:13] VITALS: BP 115/87; PULSE 91; RESP 19; TEMP 36.8; O2SAT 98; BMI 37.1
--- NOTE | 2020-07-16 14:21 | HMH.EDUTC ---
[facility] [place]ression: Sinusitis Qualifiers: Sinusitis location: unspecified location Chronicity: unspecified Qualified Code(s): J32.9 - Chronic sinusitis, unspecified Disposition: Home, Self-Care Condition on Discharge: Good Instructions: Sinusitis, Sinus Headache, DI for Sinusitis, DI for Fever (Symptom) -- Adult Additional Instructions: *Monitor Temp, Over the counter Motrin or Tylenol as directed/as needed Tylenol every 4 hours and Motrin every 6 hours (as long as your family doctor has told you that you can take it) for fever or pain. and straight to ER if unable to lower temp less than 101.0 after medication given *Warm salt water gargles may help to soothe the throat *Throat Lozenges *Warm fluids like tea with honey may help to soothe the throat *Sleep elevated *Humidifier/Vaporizer *Flonase 2 sprays in each nostril daily but be aware that it may take 2-3 days before you notice improvement Your throat swab was sent for culture. Those results are typically sent to your primary care. Be sure to follow up in 2-3 days with your family doctor/primary care physician if no improvement so they can review those result and treat if necessary. If you don?t have a primary care doctor, I recommend you get one but in the mean time, you will have to return to a walk in clinic Follow up IMMEDIATELY for new or worsening symptoms or no Noticeable improvement over the next 48-72 hours. 911 for difficulty breathing or swallowing Prescriptions: Fluticasone Propionate [Flonase 50mcg nasal spray 16gm] 1 - 2 spr NS DAILY #1 bottle Transmission Status: Pending to [facility] Azithromycin [Z-Marino 250mg Tab] 250 mg PO DIRECTED #6 tab Transmission Status: Pending to [facility] Referrals: PCP,No [Primary Care Provider] - As needed Time of Disposition: 14:32 Medical Decision Making - Sandip Inquiry Pt receiving controlled substance: No Sandip was queried for this patient: No Vital Signs: 07/16/20 14:13 Temperature 98.2 F Temperature Source Oral Pulse Rate [Radial] 91 H Respiratory Rate 19 Blood Pressure [Right Arm] 115/87 Blood Pressure Mean [Right Arm] 96 Blood Pressure Source [Right Arm] Automatic Cuff Blood Pressure Position [Right Arm] Sitting 02 Sat by Pulse Oximetry 98 Oxygen Delivery Method Room Air - Lab Data Lab results reviewed: Yes: I reviewed the patient's lab results. Medical Decision Narrative: Patient states that she was just tested on Saturday for COVID and test was negative [facility] [place] - General Stated complaint: cough sore throat ear pain Time Seen by Provider: 07/16/20 14:21 Mode of Arrival: Ambulatory Source of Information: Patient Limitations: No Limitations Description of Symptoms (Recalled from Triage Doc. 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 States that today she was still having sore throat and sinus pain so she come in to get checked - Related Data Previous Rx's Medication Instructions Recorded Azithromycin [Z-Marino 250mg Tab] 250 mg PO DIRECTED #6 tab 07/16/20 Fluticasone Propionate [Flonase 1 - 2 spr NS DAILY #1 bottle 07/16/20 50mcg nasal spray 16gm] Allergies Allergy/AdvReac Type Severity Reaction Status Date / Time No Known Allergies Allergy Verified 11/21/18 15:21 - Worker's Comp Is this a Worker's Comp case?: No [facility] History - Hepatitis A Screen Drug use history?: No High risk sexual behaviors?: No History of sexually transmitted infection?: No Currently employed?: No Childcare worker?: No Do you have in
[2020-07-16 14:32] LABS: UTC Strep Screen (Rapid) Negative (Negative)
[2020-07-16 14:37] VITALS: BP 115/87; PULSE 91; RESP 19; TEMP 36.8; O2SAT 98
== END 2020-07-16 14:38 | disposition home or self-care (01) ==
PROVIDERS: Emergency Provider Nurse Practitioner
DX: J32.9 Chronic sinusitis, unspecified (principal); F41.8 Other specified anxiety disorders; G43.709 Chronic migraine without aura, not intractable, without status migrainosus; Z90.09 Acquired absence of other part of head and neck; F17.210 Nicotine dependence, cigarettes, uncomplicated
CPT/HCPCS: 87880; 99201

== ENCOUNTER 2020-07-28 10:02 | Emergency (ER) | payer MEDICAID, SELFPAY ==
[2020-07-28 10:16] VITALS: BP 140/69; PULSE 76; RESP 18; TEMP 37; O2SAT 99; BMI 32.8
--- NOTE | 2020-07-28 10:33 | HMH.EDUTC ---
[facility] [place]: Viral syndrome Disposition: Home, Self-Care Condition on Discharge: Good Instructions: DI for Viral Syndrome Additional Instructions: Drink plenty of fluids. Take tylenol for pain or fever. Take the medications as directed. Follow up with your regular doctor. GO TO THE ER FOR ANY WORSENING SYMPTOMS FOLLOW THE DIRECTIONS ON THE COVID-19 HAND OUT THAT WE GAVE YOU REGARDING SELF-ISOLATION UNTIL YOU KNOW YOUR COVID-19 RESULTS Prescriptions: Ondansetron [Zofran 4mg ODT] 4 mg PO Q8HP PRN #20 tab.rapdis PRN Reason: Nausea Transmission Status: Received by [facility] Azithromycin [Z-Marino 250mg Tab*] 250 mg PO UD DOSE PK #6 tab Transmission Status: Received by [facility] Referrals: PCP,No [Primary Care Provider] - Forms: Work/School Release Time of Disposition: 10:42 Medical Decision Making - Medical Records Medical records reviewed: No: I reviewed the patient's medical records. - Sandip Inquiry Pt receiving controlled substance: No Vital Signs: 07/28/20 10:16 07/28/20 11:03 Temperature 98.6 F 98.6 F Temperature Source Oral Oral Pulse Rate 76 Pulse Rate [Radial] 76 Respiratory Rate 18 18 Blood Pressure 140/69 Blood Pressure [Right Arm] 140/69 Blood Pressure Mean [Right Arm] 92 Blood Pressure Source Automatic Cuff Blood Pressure Source [Right Arm] Automatic Cuff Blood Pressure Position Sitting Blood Pressure Position [Right Arm] Sitting 02 Sat by Pulse Oximetry 99 Oxygen Delivery Method Room Air Room Air - Lab Data Lab results reviewed: Yes: I reviewed the patient's lab results. Lab Results 07/28/20 10:44: Strep Scn Rapid Clinic Negative Orders (Tests/Meds): ORDERS Category Date Time Status Covid-19 Nasal PCR Sendout Chris Routine Lab 07/28/20 10:20 Received Strep Screen Confirmation Stat Micro 07/28/20 10:44 [place] [facility] [place] - General Stated complaint: cough,vomiting,headache Time Seen by Provider: 07/28/20 10:33 Mode of Arrival: Ambulatory Source of Information: Patient Limitations: No Limitations Description of Symptoms (Recalled from Triage Doc. by RN): N/V/D WANTS COVID TEST HEENT Symptoms (Recalled from RN notes): No Resp Symptoms (Recalled from RN notes): No Skin Symptoms (Recalled from RN notes): No MS Symptoms (Recalled from RN notes): No Functional Status (Recalled from RN notes): WNL - History of Present Illness Provider Complaint: She was at work this morning when she started to feel bad. Her temp went up to 99.5. She has had vomiting also. 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 - Related Data Previous Rx's Medication Instructions Recorded Azithromycin [Z-Marino 250mg Tab] 250 mg PO DIRECTED #6 tab 07/16/20 Fluticasone Propionate [Flonase 1 - 2 spr NS DAILY #1 bottle 07/16/20 50mcg nasal spray 16gm] Azithromycin [Z-Marino 250mg Tab*] 250 mg PO UD DOSE PK #6 tab 07/28/20 Ondansetron [Zofran 4mg ODT] 4 mg PO Q8HP PRN #20 tab.rapdis 07/28/20 Allergies Allergy/AdvReac Type Severity Reaction Status Date / Time No Known Allergies Allergy Verified 11/21/18 15:21 - Worker's Comp Is this a Worker's Comp case?: No [facility] History - Hepatitis A Screen Drug use history?: No High risk sexual behaviors?: No History of sexually transmitted infection?: No Currently employed?: No Childcare worker?: No Do you have indoor plumbing?: Yes Do you have electricity?: Yes Attestation statement:: This patient has been screened for Hepatitis A risk factors. I have reviewed the patient's past medical history: Yes Medical History: Reports:: Anxiety, Asthma, Depression, Hiatal Hernia, Migraine Denies:: Cancer, Diabetes Mellitus Type 1, Diabetes Mellitus Type 2, Internal Pacemaker, MRSA, Seizures Other Medical History: Reports: Other. Denies: Blood Transfusion Reaction Laterality Cases: Bilateral: Tonsillectomy Other Surgeries: Ye
[2020-07-28 10:56] LABS: UTC Strep Screen (Rapid) Negative (Negative)
[2020-07-28 11:03] VITALS: BP 140/69; PULSE 76; RESP 18; TEMP 37; O2SAT 99
[2020-07-29 14:00] LABS: Covid-19 Nasal PCR Sendout Lex NOT DETECTED
== END 2020-07-28 11:04 | disposition home or self-care (01) ==
PROVIDERS: Emergency Provider Nurse Practitioner Family
DX: B34.9 Viral infection, unspecified (principal); Z20.828 Contact with and (suspected) exposure to other viral communicable diseases; F41.8 Other specified anxiety disorders; J45.909 Unspecified asthma, uncomplicated; F17.210 Nicotine dependence, cigarettes, uncomplicated
CPT/HCPCS: 87880; 99202; U0004

== ENCOUNTER 2020-08-15 11:18 | Emergency (ER) | payer MEDICAID, SELFPAY ==
--- NOTE | 2020-08-15 11:53 | HMH.EDUTC ---
[facility] [place]: Pharyngitis Qualifiers: Pharyngitis/tonsillitis etiology: unspecified etiology Qualified Code(s): J02.9 - Acute pharyngitis, unspecified Disposition: Home, Self-Care Condition on Discharge: Good Instructions: DI for Pharyngitis/Tonsillopharyngitis -- Adult Additional Instructions: Drink plenty of fluids. Take tylenol or ibuprofen for pain or fever. Take the medications as directed. Follow up with your regular doctor. GO TO THE ER FOR ANY WORSENING SYMPTOMS Prescriptions: Azithromycin [Z-Marino 250mg Tab*] 250 mg PO UD DOSE PK #6 tab Transmission Status: Received by [facility] Referrals: PCP,No [Primary Care Provider] - Forms: Work/School Release Time of Disposition: 12:24 Medical Decision Making - Medical Records Medical records reviewed: No: I reviewed the patient's medical records. - Sandip Inquiry Pt receiving controlled substance: No Vital Signs: 08/15/20 12:06 08/15/20 12:38 Temperature 98.5 F 98.5 F Temperature Source Oral Pulse Rate 82 Pulse Rate [Right Brachial] 82 Respiratory Rate 16 16 Blood Pressure 119/74 Blood Pressure [Right Arm] 119/74 Blood Pressure Mean [Right Arm] 89 Blood Pressure Source [Right Arm] Automatic Cuff Blood Pressure Position [Right Arm] Sitting 02 Sat by Pulse Oximetry 99 Oxygen Delivery Method Room Air [facility] [place] - General Stated complaint: sore throat, vomiting Time Seen by Provider: 08/15/20 11:53 - History of Present Illness Provider Complaint: She states that for the past 2 days she has had sore throat and felt bad. She denies any possible covid exposure. She refuses covid testing today. - Related Data Previous Rx's Medication Instructions Recorded Azithromycin [Z-Marino 250mg Tab*] 250 mg PO UD DOSE PK #6 tab 08/15/20 Allergies Allergy/AdvReac Type Severity Reaction Status Date / Time No Known Allergies Allergy Verified 11/21/18 15:21 [facility] History - Hepatitis A Screen Attestation statement:: This patient has been screened for Hepatitis A risk factors. I have reviewed the patient's past medical history: Yes Medical History: Reports:: Anxiety, Asthma, Depression, Hiatal Hernia, Migraine Denies:: Cancer, Diabetes Mellitus Type 1, Diabetes Mellitus Type 2, Internal Pacemaker, MRSA, Seizures Other Medical History: Reports: Other. Denies: Blood Transfusion Reaction Laterality Cases: Bilateral: Tonsillectomy Other Surgeries: Yes: Hernia Repair, Other. No: Pacemaker Amputation: No Fractures: No - Social History Smoking Status: Current every day smoker Tobacco Type: cigarettes # Packs/Day (cigarettes): 1 #Yrs smoked (if former smoker): 1 Alcohol Intake: never Alcohol Intake Frequency:: holidays/special occasions only Substance Use Type: denies use Occupational Status: employed Housing: house Household Members: family - Psychiatric History Pschychiatric History:: Reports:: Anxiety, Depression Denies:: Suicide Attempt Family Hx:: Hyperlipidemia, Hypertension ROS Obtained: Yes All systems reviewed & no additional complaints - Constitutional Constitutional: Reports chills, Denies fever(s), Reports poor appetite, Reports malaise - Eyes Eyes: Denies eye discharge - ENT Ears, Nose, Mouth, and Throat: Reports as per HPI - Cardiovascular Cardiovascular: Reports system reviewed and no additional complaints, except as docu - Respiratory Respiratory: No chest congestion, Yes cough Physical Exam - General General appearance: alert, in no apparent distress - Head Head exam: atraumatic, normocephalic, normal inspection - Eye Eye exam: Present: normal appearance, PERRL, EOMI - ENT ENT exam: Present: mucous membranes moist, normal external ear exam - Expanded ENT Exam TM/Canal exam: Bilateral TM: erythema, bulging Mouth exam: Present: normal external inspection Teeth exam: Present: normal inspection Throat exam: Present: tonsillar erythema, tonsillo
[2020-08-15 12:06] VITALS: BP 119/74; PULSE 82; RESP 16; TEMP 36.9; O2SAT 99; BMI 31.3
[2020-08-15 12:38] VITALS: BP 119/74; PULSE 82; RESP 16; TEMP 36.9; O2SAT 99
[2020-08-18 11:05] LABS: UTC Strep Screen (Rapid) Negative (Negative)
== END 2020-08-15 12:40 | disposition home or self-care (01) ==
PROVIDERS: Emergency Provider Nurse Practitioner Family
DX: J02.9 Acute pharyngitis, unspecified (principal); F41.8 Other specified anxiety disorders; G43.709 Chronic migraine without aura, not intractable, without status migrainosus; J45.909 Unspecified asthma, uncomplicated; F17.210 Nicotine dependence, cigarettes, uncomplicated; Z79.899 Other long term (current) drug therapy
CPT/HCPCS: 87880; 99201

== ENCOUNTER 2020-08-30 10:46 | Emergency (ER) | payer MEDICAID, SELFPAY ==
[2020-08-30 11:05] VITALS: BP 134/68; PULSE 92; RESP 14; TEMP 36.9; O2SAT 96; BMI 28.1
--- NOTE | 2020-08-30 11:27 | HMH.EDUTC ---
[facility] [place]: Exposure to COVID-19 virus, Viral syndrome Disposition: Home, Self-Care Condition on Discharge: Good Instructions: Preventing the Spread of Coronavirus Discharge Instructions Additional Instructions: Drink plenty of fluids. Take tylenol for pain or fever. Return if you begin to have difficulty breathing. Follow up with your regular doctor. GO TO THE ER FOR ANY WORSENING SYMPTOMS Prescriptions: Ondansetron [Zofran 4mg ODT] 4 mg PO Q8HP PRN #12 tab.rapdis PRN Reason: Nausea Transmission Status: Received by [facility] Referrals: PCP,No [Primary Care Provider] - Forms: Work/School Release Time of Disposition: 11:38 Medical Decision Making - Medical Records Medical records reviewed: No: I reviewed the patient's medical records. - Sandip Inquiry Pt receiving controlled substance: No Vital Signs: 08/30/20 11:05 08/30/20 11:55 Temperature 98.4 F 98.4 F Temperature Source Oral Oral Pulse Rate 92 H Pulse Rate [Radial] 92 H Respiratory Rate 14 14 Blood Pressure 134/68 Blood Pressure [Right Arm] 134/68 Blood Pressure Mean [Right Arm] 90 Blood Pressure Source Automatic Cuff Blood Pressure Source [Right Arm] Automatic Cuff Blood Pressure Position Sitting Blood Pressure Position [Right Arm] Sitting 02 Sat by Pulse Oximetry 96 Oxygen Delivery Method Room Air Room Air [facility] [place] General Stated complaint: covid exposure Time Seen by Provider: 08/30/20 11:27 Mode of Arrival: Ambulatory Source of Information: Patient Limitations: No Limitations Description of Symptoms (Recalled from Triage Doc. by RN): covid test HEENT Symptoms (Recalled from RN notes): No Resp Symptoms (Recalled from RN notes): No Skin Symptoms (Recalled from RN notes): No MS Symptoms (Recalled from RN notes): No Functional Status (Recalled from RN notes): wnl - History of Present Illness Provider Complaint: She states that for the past 2 days she has had sinus congestion, cough, nausea and chilling. She has been exposed to covid-19. - Related Data Previous Rx's Medication Instructions Recorded Azithromycin [Z-Marino 250mg Tab*] 250 mg PO UD DOSE PK #6 tab 08/15/20 Ondansetron [Zofran 4mg ODT] 4 mg PO Q8HP PRN #12 tab.rapdis 08/30/20 Allergies Allergy/AdvReac Type Severity Reaction Status Date / Time No Known Allergies Allergy Verified 11/21/18 15:21 - Worker's Comp Is this a Worker's Comp case?: No [facility] History - Hepatitis A Screen Drug use history?: No High risk sexual behaviors?: No History of sexually transmitted infection?: No Currently employed?: No Childcare worker?: No Do you have indoor plumbing?: Yes Do you have electricity?: Yes Attestation statement:: This patient has been screened for Hepatitis A risk factors. I have reviewed the patient's past medical history: Yes Medical History: Reports:: Anxiety, Asthma, Depression, Hiatal Hernia, Migraine Denies:: Cancer, Diabetes Mellitus Type 1, Diabetes Mellitus Type 2, Internal Pacemaker, MRSA, Seizures Other Medical History: Reports: Other. Denies: Blood Transfusion Reaction Laterality Cases: Bilateral: Tonsillectomy Other Surgeries: Yes: Hernia Repair, Other. No: Pacemaker Amputation: No Fractures: No - Social History Smoking Status: Current every day smoker Tobacco Type: cigarettes # Packs/Day (cigarettes): 1 #Yrs smoked (if former smoker): 1 Alcohol Intake: never Alcohol Intake Frequency:: holidays/special occasions only Substance Use Type: denies use Occupational Status: other Housing: house Household Members: family - Psychiatric History Pschychiatric History:: Reports:: Anxiety, Depression Denies:: Suicide Attempt Family Hx:: Hyperlipidemia, Hypertension ROS Obtained: Yes All systems reviewed & no additional complaints - Constitutional Constitutional: Reports system reviewed and no additional complaints, except as docu - Eyes Eyes: Reports system rev
[2020-08-30 11:55] VITALS: BP 134/68; PULSE 92; RESP 14; TEMP 36.9; O2SAT 96
== END 2020-08-30 11:57 | disposition home or self-care (01) ==
PROVIDERS: Emergency Provider Nurse Practitioner Family
DX: Z20.828 Contact with and (suspected) exposure to other viral communicable diseases (principal); F41.8 Other specified anxiety disorders; J45.909 Unspecified asthma, uncomplicated; F17.210 Nicotine dependence, cigarettes, uncomplicated
CPT/HCPCS: 99201; U0003

== ENCOUNTER 2020-09-16 17:11 | Emergency (ER) | payer SELFPAY ==
[2020-09-16 17:18] VITALS: BP 129/67; PULSE 95; RESP 18; TEMP 36.8; O2SAT 100; BMI 35.2
[2020-09-16 17:26] LABS: Apearance,Urine Clear (Clear); Bilirubin,Urine Negative (Negative); Blood, Urine Negative (Negative); Color,Urine Yellow (Yellow); Glucose,Urine (UA) Negative (Negative); Ketones,Urine Negative (Negative); Protein,Urine Negative (Negative); UTC Leukocyte Esterase,Urine Negative (Negative); UTC Nitrate,Urine Negative (Negative); Urobilinogen,Urine 0.2 EU/dl (0.2)
--- NOTE | 2020-09-16 17:28 | HMH.EDUTC ---
[facility] [place] Clinical Impression: Dysuria Disposition: Home, Self-Care Condition on Discharge: Good Instructions: DI for Dysuria -- Adult, Phenazopyridine Additional Instructions: Drink plenty of fluids. Take tylenol or ibuprofen for pain or fever. Take the medications as directed. Follow up with your regular doctor. GO TO THE ER FOR ANY WORSENING SYMPTOMS The pyridium will make your urine turn orange, this is an expected side effect. It will stain your clothes if it comes into contact with them. Prescriptions: Phenazopyridine HCl [Pyridium 200mg Tablet] 200 pow PO TID #6 tab Transmission Status: Received by [facility] Referrals: PCP,No [Primary Care Provider] - Time of Disposition: 17:37 Medical Decision Making - Medical Records Medical records reviewed: No: I reviewed the patient's medical records. - Sandip Inquiry Pt receiving controlled substance: No Vital Signs: 09/16/20 17:18 09/16/20 17:40 Temperature 98.2 F 98.2 F Temperature Source Oral Oral Pulse Rate 95 H Pulse Rate [Radial] 95 H Respiratory Rate 18 18 Blood Pressure 129/67 Blood Pressure [Right Arm] 129/67 Blood Pressure Mean [Right Arm] 87 Blood Pressure Source Automatic Cuff Blood Pressure Source [Right Arm] Automatic Cuff Blood Pressure Position Sitting Blood Pressure Position [Right Arm] Sitting 02 Sat by Pulse Oximetry 100 Oxygen Delivery Method Room Air Room Air - Lab Data Lab Results 09/16/20 17:12: Urine Color Yellow, Urine Appearance Clear, Urine pH 7.0, Ur Specific [place] 1.020, Urine Protein Negative, Urine Glucose (UA) Negative, Urine Ketones Negative, Urine Blood Negative, Urine Nitrate Negative, Urine Bilirubin Negative, Urine Urobilinogen 0.2, Ur Leukocyte Esterase Negative Orders (Tests/Meds): ORDERS Category Date Time Status Urine Culture Stat Micro 09/16/20 17:36 Ordered [facility] [place] HPI - General Stated complaint: Possible UTI Time Seen by Provider: 09/16/20 17:28 Mode of Arrival: Ambulatory Source of Information: Patient Limitations: No Limitations Description of Symptoms (Recalled from Triage Doc. by RN): can't pee, back pain HEENT Symptoms (Recalled from RN notes): No Resp Symptoms (Recalled from RN notes): No Skin Symptoms (Recalled from RN notes): No MS Symptoms (Recalled from RN notes): No Functional Status (Recalled from RN notes): wnl - History of Present Illness Provider Complaint: She states that she has had urinary frequency and pressure since yesterday. She denies any fever/chills. She denies any hematuria or back pain. - Related Data Previous Rx's Medication Instructions Recorded Azithromycin [Z-Marino 250mg Tab*] 250 mg PO UD DOSE PK #6 tab 08/15/20 Ondansetron [Zofran 4mg ODT] 4 mg PO Q8HP PRN #12 tab.rapdis 08/30/20 Phenazopyridine HCl [Pyridium 200 pow PO TID #6 tab 09/16/20 200mg Tablet] Allergies Allergy/AdvReac Type Severity Reaction Status Date / Time No Known Allergies Allergy Verified 11/21/18 15:21 - Worker's Comp Is this a Worker's Comp case?: No [facility] History - Hepatitis A Screen Drug use history?: No High risk sexual behaviors?: No History of sexually transmitted infection?: No Currently employed?: No Childcare worker?: No Do you have indoor plumbing?: Yes Do you have electricity?: Yes Attestation statement:: This patient has been screened for Hepatitis A risk factors. I have reviewed the patient's past medical history: Yes Medical History: Reports:: Anxiety, Asthma, Depression, Hiatal Hernia, Migraine Denies:: Cancer, Diabetes Mellitus Type 1, Diabetes Mellitus Type 2, Internal Pacemaker, MRSA, Seizures Other Medical History: Reports: Other. Denies: Blood Transfusion Reaction Laterality Cases: Bilateral: Tonsillectomy Other Surgeries: Yes: Hernia Repair, Other. No: Pacemaker Amputation: No Fractures: No - Social History Smoking Status: Current every day smoker Tobacco Type: cigaret
[2020-09-16 17:40] VITALS: BP 129/67; PULSE 95; RESP 18; TEMP 36.8; O2SAT 100
== END 2020-09-16 17:41 | disposition home or self-care (01) ==
PROVIDERS: Emergency Provider Nurse Practitioner Family
DX: N39.0 Urinary tract infection, site not specified (principal); F41.8 Other specified anxiety disorders; J45.909 Unspecified asthma, uncomplicated; F17.210 Nicotine dependence, cigarettes, uncomplicated
CPT/HCPCS: 81003; 99201

== ENCOUNTER 2020-11-08 17:23 | Emergency (ER) | payer SELFPAY ==
[2020-11-08 17:40] VITALS: BP 111/70; PULSE 106; RESP 14; TEMP 36.9; O2SAT 99; BMI 31.1
[2020-11-08 18:12] LABS: UTC Influenza A Antigen Negative (Negative); UTC Influenza B Antigen Negative (Negative)
--- NOTE | 2020-11-08 18:14 | HMH.EDUTC ---
[facility] [place] Clinical Impression: Strep throat Disposition: Home, Self-Care Condition on Discharge: Good Instructions: Strep Throat, DI for Strep Throat Additional Instructions: Drink plenty of fluids. Take tylenol or ibuprofen for pain or fever. Follow up with your regular doctor. GO TO THE ER FOR ANY WORSENING SYMPTOMS Referrals: PCP,No [Primary Care Provider] - Forms: Work/School Release Medical Decision Making - Medical Records Medical records reviewed: No: I reviewed the patient's medical records. - Sandip Inquiry Pt receiving controlled substance: No Vital Signs: 11/08/20 17:40 11/08/20 18:28 Temperature 98.5 F 98.5 F Temperature Source Oral Pulse Rate 106 H Pulse Rate [Right Brachial] 106 H Respiratory Rate 14 14 Blood Pressure 111/70 Blood Pressure [Right Arm] 111/70 Blood Pressure Mean [Right Arm] 83 Blood Pressure Source [Right Arm] Automatic Cuff Blood Pressure Position [Right Arm] Sitting 02 Sat by Pulse Oximetry 99 Oxygen Delivery Method Room Air - Lab Data Lab results reviewed: Yes: I reviewed the patient's lab results. Lab Results 11/08/20 18:08: Influenza Type A Ag Negative, Influenza Type B Ag Negative 11/08/20 18:08: Strep Scn Rapid Clinic Positive A Orders (Tests/Meds): ED MEDICATIONS Discontinued Medications Generic Name Dose Route Start Last Admin Trade Name Eva PRN Reason Stop Dose Admin Penicillin G Benzathine 1,200,000 unit 11/08/20 18:20 11/08/20 18:25 Penicillin G Benzathine 1,200,000 Units/2ml Syringe IM 11/08/20 18:21 1,200,000 unit ONCE ONE Administration Protocol ORDERS Category Date Time Status Strep Screen Confirmation Stat Micro 11/08/20 18:08 Received [facility] [place] - General Stated complaint: sore throat,cough,MENJIVAR Body pain Time Seen by Provider: 11/08/20 18:14 Mode of Arrival: Ambulatory Source of Information: Patient Limitations: No Limitations Description of Symptoms (Recalled from Triage Doc. by RN): PATIENT C/O SORE THROAT, COUGH, HEADACHE, EAR PAIN AND BODY ACHES HEENT Symptoms (Recalled from RN notes): Yes Resp Symptoms (Recalled from RN notes): Yes Skin Symptoms (Recalled from RN notes): No MS Symptoms (Recalled from RN notes): No Functional Status (Recalled from RN notes): WNL - History of Present Illness Provider Complaint: She c/o sore throat and body aches for the past 2 days. She had a negative covid test yesterday. - Related Data Previous Rx's Medication Instructions Recorded Azithromycin [Z-Marino 250mg Tab*] 250 mg PO UD DOSE PK #6 tab 08/15/20 Ondansetron [Zofran 4mg ODT] 4 mg PO Q8HP PRN #12 tab.rapdis 08/30/20 Phenazopyridine HCl [Pyridium 200 pow PO TID #6 tab 09/16/20 200mg Tablet] Allergies Allergy/AdvReac Type Severity Reaction Status Date / Time No Known Allergies Allergy Verified 11/21/18 15:21 - Worker's Comp Is this a Worker's Comp case?: No [facility] History - Hepatitis A Screen Drug use history?: No High risk sexual behaviors?: No History of sexually transmitted infection?: No Currently employed?: No Childcare worker?: No Do you have indoor plumbing?: Yes Do you have electricity?: Yes Attestation statement:: This patient has been screened for Hepatitis A risk factors. I have reviewed the patient's past medical history: Yes Medical History: Reports:: Anxiety, Asthma, Depression, Hiatal Hernia, Migraine Denies:: Cancer, Diabetes Mellitus Type 1, Diabetes Mellitus Type 2, Internal Pacemaker, MRSA, Seizures Other Medical History: Reports: Other. Denies: Blood Transfusion Reaction Laterality Cases: Bilateral: Tonsillectomy Other Surgeries: Yes: Hernia Repair, Other. No: Pacemaker Amputation: No Fractures: No - Social History Smoking Status: Current every day smoker Tobacco Type: cigarettes # Packs/Day (cigarettes): 1 #Yrs smoked (if former smoker): 1 Alcohol Intake: never Alcohol Intake Frequency:: holidays/special occasion
[2020-11-08 18:15] LABS: UTC Strep Screen (Rapid) Positive (Negative)
[2020-11-08 18:28] VITALS: BP 111/70; PULSE 106; RESP 14; TEMP 36.9; O2SAT 99
== END 2020-11-08 18:45 | disposition home or self-care (01) ==
PROVIDERS: Emergency Provider Nurse Practitioner Family
DX: J02.0 Streptococcal pharyngitis (principal); F41.8 Other specified anxiety disorders; F17.210 Nicotine dependence, cigarettes, uncomplicated
CPT/HCPCS: 87804; 87880; 96372; 99202; G0463; J0561

== ENCOUNTER → 2021-02-14 14:16 | Outpatient (CLI) | payer OTHER, SELFPAY ==
[2021-02-14 15:50] LABS: HCG,Quantitative 634 mIU/ml (0-5.42)
== END ==
PROVIDERS: Visit Provider Nurse Practitioner Obstetrics & Gynecology
DX: N92.6 Irregular menstruation, unspecified (principal)
CPT/HCPCS: 36415; 84702

== ENCOUNTER 2021-02-18 23:28 | Emergency (ER) | payer OTHER, SELFPAY ==
[2021-02-19 00:01] VITALS: BP 136/73; PULSE 109; RESP 14; TEMP 36.8; O2SAT 100; BMI 40.3
[2021-02-19 00:27] LABS: Appearance,Urine SL CLOUDY (Clear); Bilirubin,Urine Negative (Negative); Blood, Urine Negative (Negative); Color,Urine YELLOW (Yellow); Glucose,Urine (UA) Negative (Negative); Ketones,Urine TRACE (Negative); Leukocyte Esterase,Urine Negative (Negative); Microscopic, Urine URINE MICROSCOPIC (MICROSCOPIC); Nitrate,Urine Negative (Negative); PH,Urine 7.5 (5.0-8.5); Protein,Urine Negative (Negative)
[2021-02-19 00:41] LABS: Amorphous Sediment,Urine 2+ /lpf; Bacteria,Urine Trace /lpf; Squamous Epithelial Cell,Urine 50-100 #/hpf (0-5); WBC,Urine Occasional #/hpf (0-3)
--- NOTE | 2021-02-19 00:41 | HMH.EDPREG ---
ED Disposition Clinical Impression: Qualifiers: Weeks of gestation: 10 weeks Qualified Code(s): Z3A.10 - 10 weeks gestation of Disposition: Home, Self-Care Condition on Discharge: Good Instructions: DI for -- Discomforts and Remedies Additional Instructions: recheck if any problems and call dr quispe for follow up Referrals: Brandt Figueroa MD [Primary Care Provider] - Olvin Quispe MD [Staff Physician] - - Critical Care Critical Care Time: No Attestation: On 02/18/21, the high probability of a clinically significant, sudden or life threatening deterioration of the following system(s) required my full and direct attention, intervention and personal management. The time I documented below is in addition to time spent performing reported procedures but includes the following listed in this critical care notation. Medical Decision Making - Medical Records Medical records reviewed: Yes: I reviewed the patient's medical records. - Sandip Inquiry Pt receiving controlled substance: No Vital Signs: 02/19/21 00:01 02/19/21 01:06 Temperature 98.2 F Temperature Source Oral Pulse Rate 84 Pulse Rate [Right Brachial] 109 H Respiratory Rate 14 Blood Pressure 114/62 Blood Pressure [Right Arm] 136/73 Blood Pressure Mean [Right Arm] 94 Blood Pressure Source [Right Arm] Automatic Cuff Blood Pressure Position [Right Arm] Sitting 02 Sat by Pulse Oximetry 100 98 Oxygen Delivery Method Room Air - Lab Data Lab results reviewed: Yes: I reviewed the patient's lab results. Lab Results 02/19/21 00:15: Urine Color Yellow, Urine Appearance Sl cloudy, Urine pH 7.5, Ur Specific Hancock 1.020, Urine Protein Negative, Urine Glucose (UA) Negative, Urine Ketones Trace, Urine Blood Negative, Urine Nitrate Negative, Urine Bilirubin Negative, Urine Urobilinogen 1.0, Ur Leukocyte Esterase Negative, Urine RBC None, Urine WBC Occasional, Ur Squamous Epith Cells 50-100, Amorphous Sediment 2+, Urine Bacteria Trace 02/19/21 00:41: WBC 10.7, RBC 4.85, Hgb 14.1, Hct 42.7, MCV 88.2, MCH 29.1, MCHC 33.0, RDW 14.1, Plt Count 290, MPV 8.9, Neut % (Auto) 69.7, Lymph % (Auto) 22.2, Wright % (Auto) 5.8, Eos % (Auto) 1.8, Baso % (Auto) 0.5, Neut # (Auto) 7.4, Lymph # (Auto) 2.4, Wright # (Auto) 0.6, Eos # (Auto) 0.2, Baso # (Auto) 0.1 02/19/21 00:41: Sodium 138, Potassium 4.4, Chloride 105, Carbon Dioxide 23, Anion Gap 14.4, BUN 12, Creatinine 0.70, Estimated Creat Clear 226, Estimated GFR 105, Est GFR ( Amer) 127, Glucose 79, Calcium 9.6, HCG, Quant 3746 H Result diagrams: 02/19/21 00:41 02/19/21 00:41 Medical Decision Narrative: has atypical abd pain with no bleeding and bilat and inc beta - will hold on pelvic u/s at this time HPI - General Chief complaint: Abdominal Pain Stated complaint: Approx 10 weeks with abd pain Time Seen by Provider: 02/19/21 00:15 Mode of Arrival: Family Vehicle Source of Information: Patient, Significant Other, Medical Record Limitations: No Limitations Description of Symptoms (Recalled from ER Triage Doc. by RN): stabbing pain right side low abd, no vaginal bleeding. confirmed preg on 02/14 with pos quantitative test. dr maldonado has estimated approx 10 weeks per their report. denies trauma - History of Present Illness HPI Narrative: abd pain with pain on both sides w/o vag bleeding - is known - had quant on 02/14 Complaint: abdominal pain Onset (ago): hour(s) Consistency: intermittent Location: abdomen Severity: mild Associated symptoms: denies other symptoms Vaginal bleeding: none : Yes Date of Last Menstrual Period: 01/10/21 care: followed by OB - Related Data Previous Rx's Medication Instructions Recorded Azithromycin [Z-Marino 250mg Tab*] 250 mg PO UD DOSE PK #6 tab 08/15/20 Ondansetron [Zofran 4mg ODT] 4 mg PO Q8HP PRN #12 tab.rapdis 08/30/20 Phenazopyridine HCl [Pyridium 200 pow PO TID #6 tab 09/16/20 200
[2021-02-19 00:53] LABS: Basophils # 0.1 K/mm3 (0-0.2); Basophils % 0.5 % (0.1-2.0); Eosinophils # 0.2 K/mm3 (0.0-0.4); Eosinophils % 1.8 % (0.1-12.0); Hematocrit 42.7 % (37.0-47.0); Hemoglobin 14.1 g/dL (12.2-16.2); Lymphocytes # 2.4 K/mm3 (0.7-4.5); Lymphocytes % 22.2 % (10-50); Mean Corpuscular Hemoglobin 29.1 pg (27.0-31.2); Mean Corpuscular Volume 88.2 fl (81-99); Mean Platelet Volume 8.9 fl (7.4-10.4); Monocytes # 0.6 K/mm3 (0.1-1.0); Monocytes % 5.8 % (1.7-9.3); Neutrophils # 7.4 K/mm3 (1.8-7.8); Neutrophils % 69.7 % (37.0-80.0); Platelet Count 290 K/mm3 (142-424); Red Blood Count 4.85 M/mm3 (4.20-5.40); Red Cell Distribution Width 14.1 % (11.5-17.5); White Blood Count 10.7 K/mm3 (4.8-10.8)
[2021-02-19 00:54] LABS: Chloride 105 mmol/L (98-107); Potassium 4.4 mmoL/L (3.5-5.1); Sodium 138 mmol/L (136-145)
[2021-02-19 00:57] LABS: Anion Gap 14.4 mEq/L (5-15); Blood Urea Nitrogen 12 mg/dl (7-17); Carbon Dioxide 23 mmol/L (22.0-30.0); Creatinine Clearance Estimated 226 mL/min (50-200); Estimated Glomerular Filt Rate 105 ml/min (>60); GFR (African American) 127 ML/MIN (>60)
[2021-02-19 00:58] LABS: Calcium 9.6 mg/dl (8.4-10.2); Glucose 79 mg/dl (74-100)
[2021-02-19 01:06] VITALS: BP 114/62; PULSE 84; O2SAT 98
[2021-02-19 01:15] LABS: HCG,Quantitative 3746 mIU/ml (0-5.42)
[2021-02-19 01:29] VITALS: BP 132/71; PULSE 71; RESP 18; TEMP 36.8; O2SAT 99
== END 2021-02-19 01:32 | disposition home or self-care (01) ==
PROVIDERS: Emergency Provider Emergency Medicine; PCP Internal Medicine Adolescent Medicine
DX: R10.30 Lower abdominal pain, unspecified (principal); Z3A.10 10 weeks gestation of pregnancy; F41.8 Other specified anxiety disorders; J45.909 Unspecified asthma, uncomplicated; F17.210 Nicotine dependence, cigarettes, uncomplicated
CPT/HCPCS: 80048; 81001; 84702; 85025; 99282

== ENCOUNTER → 2021-03-21 11:58 | Outpatient (CLI) | payer OTHER, SELFPAY ==
[2021-03-21 13:14] LABS: Basophils % 0.2 % (0.1-2.0); Eosinophils # 0.1 K/mm3 (0.0-0.4); Eosinophils % 0.7 % (0.1-12.0); Hematocrit 40.2 % (37.0-47.0); Hemoglobin 13.7 g/dL (12.2-16.2); Lymphocytes # 1.8 K/mm3 (0.7-4.5); Lymphocytes % 17.5 % (10-50); Mean Corpuscular Hemoglobin 29.6 pg (27.0-31.2); Mean Corpuscular Volume 87.3 fl (81-99); Mean Platelet Volume 8.5 fl (7.4-10.4); Monocytes # 0.5 K/mm3 (0.1-1.0); Monocytes % 4.7 % (1.7-9.3); Platelet Count 277 K/mm3 (142-424); Red Blood Count 4.61 M/mm3 (4.20-5.40); Red Cell Distribution Width 13.7 % (11.5-17.5); White Blood Count 10.3 K/mm3 (4.8-10.8)
[2021-03-23 05:11] LABS: Hepatitis B Surface Antigen Negative (Negative); Hepatitis C Antibody <0.1 s/co ratio (0.0-0.9)
[2021-03-23 07:32] LABS: HSV 1 IgG, Type Spec <0.91 index (0.00-0.90); HSV 2 IgG, Type Spec <0.91 index (0.00-0.90); Rubella Antibodies, IgG 2.71 index (Immune >0.99)
[2021-03-23 09:26] LABS: HIV Screen 4th Generation wRfx Non Reactive (Non Reactive)
[2021-03-23 13:03] LABS: Rapid Plasma Reagin Ab Titer Non Reactive (NonRea<1:1)
== END ==
PROVIDERS: Visit Provider Nurse Practitioner Obstetrics & Gynecology
DX: Z34.90 Encounter for supervision of normal pregnancy, unspecified, unspecified trimester (principal); Z3A.12 12 weeks gestation of pregnancy
CPT/HCPCS: 36415; 85025; 86592; 86695; 86703; 86762; 86790; 86850; 87340; 87380; G0432

== ENCOUNTER → 2021-03-28 12:49 | Outpatient (CLI) | payer OTHER, SELFPAY ==
--- NOTE | 2021-03-28 12:49 | US_ITS ---
PROCEDURE: US OB <= 14 WEEKS FETUS CLINICAL INDICATION: Dates ,confirm before 14 wks COMPARISON: No exams were available for comparison FINDINGS: An intrauterine gestational sac is present with a pole with a crown-rump length of 3.45cm correlating to gestational age of 10weeks 3days. heart tones are present with an FHR of 163bpm. Yolk sac is noted. No free fluid in the pelvis. No adnexal mass. IMPRESSION: Single early living intrauterine with composite ultrasound age of 10 weeks 3 days. Estimated due date by Ultrasound is 10/21/2021 Dictated by: Khoi Villalta MD 03/28/2021 17:38 Khoi Villalta MD in [place] 03/28/2021 17:38
== END ==
PROVIDERS: PCP Internal Medicine Adolescent Medicine; Visit Provider Nurse Practitioner Obstetrics & Gynecology
DX: O26.841 Uterine size-date discrepancy, first trimester (principal)
CPT/HCPCS: 76801

== ENCOUNTER 2021-05-10 12:35 | Emergency (ER) | payer OTHER, SELFPAY ==
[2021-05-10 13:15] VITALS: BP 124/69; PULSE 68; RESP 17; TEMP 36.9; O2SAT 98; BMI 40.7
--- NOTE | 2021-05-10 13:25 | HMH.EDUTC ---
[facility] [place] Clinical Impression: Sinusitis Qualifiers: Sinusitis location: unspecified location Chronicity: unspecified Qualified Code(s): J32.9 - Chronic sinusitis, unspecified Disposition: Home, Self-Care Condition on Discharge: Good Instructions: Sinusitis, DI for Sinusitis, Azithromycin Additional Instructions: *Monitor Temp, Over the counter Motrin or Tylenol as directed/as needed Tylenol every 4 hours and Motrin every 6 hours (as long as your family doctor has told you that you can take it) for fever or pain. and straight to ER if unable to lower temp less than 101.0 after medication given *Warm salt water gargles may help to soothe the throat *Throat Lozenges *Warm fluids like tea with honey may help to soothe the throat *Sleep elevated *Humidifier/Vaporizer *Flonase 2 sprays in each nostril daily but be aware that it may take 2-3 days before you notice improvement Your throat swab was sent for culture. Those results are typically sent to your primary care. Be sure to follow up in 2-3 days with your family doctor/primary care physician if no improvement so they can review those result and treat if necessary. If you don?t have a primary care doctor, I recommend you get one but in the mean time, you will have to return to a walk in clinic Follow up IMMEDIATELY for new or worsening symptoms or no Noticeable improvement over the next 48-72 hours. 911 for difficulty breathing or swallowing You were tested for today for COVID19 your test result should be back in the next 24-48 hours, you may call to the [facility] to see if your test results are back in the next 48 hours [phone] [facility] hours are 9am-9pm You was given a handout with instructions for Self Quarantine and Self isolation for while you wait on test results and what to do if they are positive If you are positive the Health Dept will be contacting you also Prescriptions: Fluticasone Propionate [Flonase 50mcg nasal spray 16gm] 1 spr NS DAILY #1 bottle Transmission Status: Received by [id number] Azithromycin [Z-Marino 250mg Tab] 250 mg PO DIRECTED #6 tab Transmission Status: Received by [id number] Referrals: Provider,Referral, [Primary Care Provider] - As needed Time of Disposition: 13:44 Medical Decision Making - Sandip Inquiry Pt receiving controlled substance: No Sandip was queried for this patient: No Vital Signs: 05/10/21 13:15 Temperature 98.4 F Temperature Source Oral Pulse Rate [Left] 68 Respiratory Rate 17 Blood Pressure [Right Arm] 124/69 Blood Pressure Mean [Right Arm] 87 02 Sat by Pulse Oximetry 98 - Lab Data Lab results reviewed: Yes: I reviewed the patient's lab results. Lab Results 05/10/21 13:12: Strep Scn Rapid Clinic Negative Orders (Tests/Meds): ORDERS Category Date Time Status Covid-19 Nasal PCR ([facility]) Routine Lab 05/10/21 13:02 Received Strep Screen Confirmation Stat Micro 05/10/21 13:[address] [facility] UTC HPI - General Stated complaint: sore throat, cough, ear ache, SOA Time Seen by Provider: 05/10/21 13:25 Mode of Arrival: Ambulatory Source of Information: Patient Limitations: No Limitations Description of Symptoms (Recalled from Triage Doc. by RN): pt c/o sore throat, cough, ear ache, and soa ongoing for two days. HEENT Symptoms (Recalled from RN notes): Yes (sore throat and ear aches) Resp Symptoms (Recalled from RN notes): Yes (cough and soa) Skin Symptoms (Recalled from RN notes): No MS Symptoms (Recalled from RN notes): No Functional Status (Recalled from RN notes): na - History of Present Illness Provider Complaint: Patient states that she is currently States that she has been having bilateral ear pain, sinus pain and pressure, cough, sore throat and feeling short of breath at times with coughing and nasal congestion States that she was worried and wanted to come in and get tested for COVID and strep throat - Related Data Home Medications Medication Instruct
[2021-05-10 13:35] LABS: UTC Strep Screen (Rapid) Negative (Negative)
[2021-05-10 14:03] VITALS: BP 124/69; PULSE 68; RESP 17; TEMP 36.9
== END 2021-05-10 14:09 | disposition home or self-care (01) ==
PROVIDERS: Emergency Provider Nurse Practitioner
DX: J32.9 Chronic sinusitis, unspecified (principal); Z20.822 Contact with and (suspected) exposure to COVID-19; H61.22 Impacted cerumen, left ear; F41.8 Other specified anxiety disorders; Z34.90 Encounter for supervision of normal pregnancy, unspecified, unspecified trimester; F17.210 Nicotine dependence, cigarettes, uncomplicated
CPT/HCPCS: 87880; 99202; G0463; U0003

== ENCOUNTER → 2021-06-07 13:09 | Outpatient (CLI) | payer OTHER, SELFPAY ==
--- NOTE | 2021-06-07 13:14 | US_ITS ---
PROCEDURE: US OB >= 14 WEEKS FETUS CLINICAL INDICATION: 20 weeks gestation of Anatomy exam COMPARISON: US US OB <= 14 WEEKS FETUS from 03/28/2021 FINDINGS: There is a single live fetus which is in cephalic presentation. heart and body motion noted. Cervix is closed measuring 4 cm. The placenta is anterior and grade 1. Complete survey performed and was unremarkable on the submitted images as in PACS. No discrete anomalies identified on survey imaging by technologist. Active fetus. Three-vessel cord with satisfactory umbilical cord insertion. 4- chamber heart noted. Survey of brain & ventricles Unremarkable. Face and neck survey unremarkable. Diaphragm and chest views unremarkable. Abdomen: Both kidneys noted and unremarkable. Stomach noted and satisfactory. Spine: Survey of the spine satisfactory with no anomalies identified nor imaged. Both arms and legs noted. Amniotic Fluid: Adequate. Maternal adnexa: No significant findings. Measurements: Average ultrasound age 21weeks 1day. Gestational Age 21weeks 1day Estimated due date by ultrasound age 0110/17/2021. Estimated weight 393g BPD = 21weeks 3days OFD = 21weeks 2days HC = 20weeks 5days AC = 21weeks 1day FL = 21weeks 1day Growth Percentile= 70% Heart Rate = 149bpm Cerebellum = 20weeks 4days Humerus = 21weeks 1day HC/AC is 1.15 CI is 0.79 FL/BPD is 0.69 FL/AC is 0.22 IMPRESSION: Live IUP with an average ultrasound age of 21 weeks and 1 day. No obvious anomalies. Please see above for detail. Dictated by: Pawel Coawn MD 06/07/2021 17:54 Paewl Cowan MD in [place] 06/07/2021 17:54
== END ==
PROVIDERS: Visit Provider Nurse Practitioner Obstetrics & Gynecology
DX: Z36.0 Encounter for antenatal screening for chromosomal anomalies (principal)
CPT/HCPCS: 76805

== ENCOUNTER 2021-06-13 11:41 | Emergency (ER) | payer OTHER, SELFPAY ==
[2021-06-13 13:40] VITALS: BP 113/68; PULSE 103; RESP 19; TEMP 36.7; O2SAT 98; BMI 46.2
--- NOTE | 2021-06-13 14:09 | HMH.EDUTC ---
[facility] [place] Clinical Impression: Encounter for laboratory testing for COVID-19 virus Disposition: Home, Self-Care Condition on Discharge: Good Instructions: DI for COVID-19 (Suspected or Confirmed ), Preventing the Spread of Coronavirus Discharge Instructions, Sore Throat Additional Instructions: *Monitor Temp, Over the counter Motrin or Tylenol as directed/as needed Tylenol every 4 hours and Motrin every 6 hours (as long as your family doctor has told you that you can take it) for fever or pain. and straight to ER if unable to lower temp less than 101.0 after medication given *Warm salt water gargles may help to soothe the throat *Throat Lozenges *Warm fluids like tea with honey may help to soothe the throat *Sleep elevated *Humidifier/Vaporizer Follow up IMMEDIATELY for new or worsening symptoms or no Noticeable improvement over the next 48-72 hours. 911 for difficulty breathing or swallowing You were tested for today for COVID19 your test result should be back in the next 24-48 hours, You was given handout to access the [facility] portal your results should be available on there later today if you do not have internet or trouble accessing you can call at [phone] You was given a handout with instructions for Self Quarantine and Self isolation for while you wait on test results and what to do if they are positive If you are positive the Health Dept will be contacting you also Make sure to take your Vitamins Vit. C Vit D and Zinc if you can take them Referrals: Provider,Referral, [Primary Care Provider] - As needed Time of Disposition: 14:12 Medical Decision Making - Sandip Inquiry Pt receiving controlled substance: No Sandip was queried for this patient: No Vital Signs: 06/13/21 13:40 Temperature 98.1 F Temperature Source Oral Pulse Rate [Right Brachial] 103 H Respiratory Rate 19 Blood Pressure [Right Arm] 113/68 Blood Pressure Mean [Right Arm] 83 Blood Pressure Source [Right Arm] Automatic Cuff Blood Pressure Position [Right Arm] Sitting 02 Sat by Pulse Oximetry 98 Oxygen Delivery Method Room Air Orders (Tests/Meds): ORDERS Category Date Time Status Covid-19 Nasal PCR ([facility]) Routine Lab 06/13/21 13:42 Received [facility] [place] HPI - General Stated complaint: covid test Time Seen by Provider: 06/13/21 14:09 Mode of Arrival: Ambulatory Source of Information: Patient Limitations: No Limitations Description of Symptoms (Recalled from Triage Doc. by RN): PATIENT C/O SORE THROAT AND HEADACEH X 2 DAYS. EXPOSURE TO COVID HEENT Symptoms (Recalled from RN notes): Yes Resp Symptoms (Recalled from RN notes): No Skin Symptoms (Recalled from RN notes): No MS Symptoms (Recalled from RN notes): No Functional Status (Recalled from RN notes): WNL - History of Present Illness Provider Complaint: Patient state that she wanted to get tested for COVID state that she is 21wks OB and has been around several family members that recently tested positive for COVID so she wanted to get tested wwhen she started having body aches, chills, scratchy throat and headache. - Related Data Home Medications Medication Instructions Recorded Confirmed prenat.vits,reynold,[id number] 1 tab PO DAILY 04/18/21 05/16/21 Previous Rx's Medication Instructions Recorded ondansetron 4 mg disintegrating 4 mg PO Q6H PRN #30 tab 04/18/21 tablet Azithromycin [Z-Marino 250mg Tab] 250 mg PO DIRECTED #6 tab 05/10/21 Fluticasone Propionate [Flonase 1 spr NS DAILY #1 bottle 05/10/21 50mcg nasal spray 16gm] ferrous sulfate 325 mg (65 mg 325 mg PO DAILY #30 tab 05/16/21 iron) tablet fluoxetine 10 mg capsule 10 mg PO DAILY #90 cap 05/16/21 Allergies Allergy/AdvReac Type Severity Reaction Status Date / Time No Known Allergies Allergy Verified 05/16/21 10:44 - Worker's Comp Is this a Worker's Comp case?: No [facility] History - Hepatitis A Screen Drug use history?: No High risk sexual behaviors?: No History
[2021-06-13 14:15] VITALS: BP 113/68; PULSE 103; RESP 19; TEMP 36.7; O2SAT 98
== END 2021-06-13 14:24 | disposition home or self-care (01) ==
PROVIDERS: Emergency Provider Nurse Practitioner
DX: Z20.822 Contact with and (suspected) exposure to COVID-19 (principal); F41.8 Other specified anxiety disorders; F17.210 Nicotine dependence, cigarettes, uncomplicated
CPT/HCPCS: 99202; G0463; U0003

== ENCOUNTER → 2021-06-27 17:49 | Outpatient (CLI) | payer OTHER, SELFPAY | PROVIDERS: Visit Provider Nurse Practitioner Obstetrics & Gynecology | DX: N39.0 Urinary tract infection, site not specified (principal); Z3A.23 23 weeks gestation of pregnancy | CPT/HCPCS: 87086; 87088; 87186 ==

== ENCOUNTER 2021-07-19 22:39 | Outpatient (CLI) | payer OTHER, SELFPAY ==
[2021-07-19 23:01] VITALS: BMI 40.9
[2021-07-19 23:16] LABS: Microscopic, Urine URINE MICROSCOPIC (MICROSCOPIC)
[2021-07-19 23:24] LABS: Appearance,Urine SL CLOUDY (Clear); Bilirubin,Urine Negative (Negative); Blood, Urine Negative (Negative); Color,Urine STRAW (Yellow); Glucose,Urine (UA) Negative (Negative); Ketones,Urine Negative (Negative); Leukocyte Esterase,Urine Negative (Negative); Nitrate,Urine Negative (Negative); PH,Urine 7.5 (5.0-8.5); Protein,Urine Negative (Negative); Urobilinogen,Urine 0.2 EU/dl (0.2)
[2021-07-19 23:33] LABS: Barbiturates Screen,Urine Negative ng/ml (<200)
[2021-07-19 23:34] VITALS: BP 126/73; PULSE 98; RESP 18; TEMP 36.8; O2SAT 98; BMI 40.8
[2021-07-19 23:34] LABS: Benzodiazepines Screen,Urine Negative ng/ml (<200)
[2021-07-19 23:35] LABS: Amphetamine/Metha Screen,Urine Negative ng/ml (<1000); Methadone Screen,Urine Negative ng/ml (<300)
[2021-07-19 23:36] LABS: Cannabinoid Screen,Urine Negative ng/ml (<50)
[2021-07-19 23:37] LABS: Cocaine Screen,Urine Negative ng/ml (<300); Opiate Screen,Urine Negative ng/ml (<300)
[2021-07-19 23:38] LABS: Phencyclidine Screen,Urine Negative ng/ml (<25)
[2021-07-19 23:44] LABS: Bacteria,Urine 1+ /lpf; WBC,Urine Occasional #/hpf (0-3)
== END 2021-07-20 | disposition home or self-care (01) ==
LOC: OBOUT 22:43 → OB 22:43
PROVIDERS: PCP Nurse Practitioner Obstetrics & Gynecology; Visit Provider Obstetrics & Gynecology
DX: O26.892 Other specified pregnancy related conditions, second trimester (principal); Z3A.26 26 weeks gestation of pregnancy
CPT/HCPCS: 59025; 80305; 81001; G0463

== ENCOUNTER → 2021-07-29 10:16 | Outpatient (CLI) | payer OTHER, SELFPAY ==
[2021-07-29 11:08] LABS: Glucose,Fasting 94 mg/dl (74-100)
[2021-07-29 12:45] LABS: Glucose 1 Hour 142 mg/dL (74-100)
== END ==
PROVIDERS: Visit Provider Nurse Practitioner Obstetrics & Gynecology
DX: Z34.90 Encounter for supervision of normal pregnancy, unspecified, unspecified trimester (principal)
CPT/HCPCS: 82951

== ENCOUNTER → 2021-08-07 08:31 | Outpatient (CLI) | payer OTHER, SELFPAY ==
[2021-08-07 09:07] LABS: Glucose,Fasting 102 mg/dl (74-100)
[2021-08-07 10:24] LABS: Glucose 1 Hour 133 mg/dL (74-100)
[2021-08-07 11:20] LABS: Glucose 2 Hour 150 mg/dL (74-100)
[2021-08-07 12:34] LABS: Glucose 3 Hour 129 mg/dL (74-100)
== END ==
PROVIDERS: Visit Provider Nurse Practitioner Obstetrics & Gynecology
DX: Z34.90 Encounter for supervision of normal pregnancy, unspecified, unspecified trimester (principal)
CPT/HCPCS: 36415; 82951

== ENCOUNTER 2021-09-11 21:46 | Outpatient (CLI) | payer OTHER, SELFPAY ==
[2021-09-11 22:15] VITALS: BMI 42.3
[2021-09-11 22:19] VITALS: BP 100/34; PULSE 117; RESP 18; TEMP 37.1; O2SAT 94; BMI 42.3
[2021-09-11 22:35] LABS: Coronavirus 19, PCR Not Detected (NotDetected); Influenza A, PCR Not Detected (NotDetected); Influenza B, PCR Not Detected (NotDetected); Microscopic, Urine URINE MICROSCOPIC (MICROSCOPIC)
[2021-09-11 22:37] LABS: Appearance,Urine CLEAR (Clear); Bilirubin,Urine Negative (Negative); Blood, Urine Negative (Negative); Color,Urine YELLOW (Yellow); Glucose,Urine (UA) Negative (Negative); Ketones,Urine Negative (Negative); Leukocyte Esterase,Urine TRACE (Negative); Nitrate,Urine Negative (Negative); Protein,Urine Negative (Negative); Specific Gravity, Urine <= 1.005 (1.005-1.030); Urobilinogen,Urine 0.2 EU/dl (0.2)
[2021-09-11 22:50] LABS: Amphetamine/Metha Screen,Urine Negative ng/ml (<1000); Barbiturates Screen,Urine Negative ng/ml (<200)
[2021-09-11 22:51] LABS: Bacteria,Urine Trace /lpf; Benzodiazepines Screen,Urine Negative ng/ml (<200); RBC,Urine Occasional #/hpf (0-3)
[2021-09-11 22:52] LABS: Cannabinoid Screen,Urine Negative ng/ml (<50); Cocaine Screen,Urine Negative ng/ml (<300)
[2021-09-11 22:53] LABS: Methadone Screen,Urine Negative ng/ml (<300)
[2021-09-11 22:54] LABS: Opiate Screen,Urine Negative ng/ml (<300); Phencyclidine Screen,Urine Negative ng/ml (<25)
== END 2021-09-11 23:15 | disposition home or self-care (01) ==
LOC: OBOUT 21:49 → OB 21:50
PROVIDERS: PCP Nurse Practitioner Obstetrics & Gynecology; Visit Provider Nurse Practitioner Obstetrics & Gynecology
DX: O26.893 Other specified pregnancy related conditions, third trimester (principal); Z3A.34 34 weeks gestation of pregnancy; R51.9 Headache, unspecified; M79.605 Pain in left leg; M79.604 Pain in right leg; M79.89 Other specified soft tissue disorders; Z20.822 Contact with and (suspected) exposure to COVID-19
CPT/HCPCS: 80305; 81001; C9803; U0003; U0005

== ENCOUNTER → 2021-09-14 10:54 | Outpatient (CLI) | payer OTHER, SELFPAY ==
[2021-09-15 09:14] LABS: HSV 1 IgG, Type Spec <0.91 index (0.00-0.90); HSV 2 IgG, Type Spec <0.91 index (0.00-0.90)
== END ==
PROVIDERS: Visit Provider Nurse Practitioner Obstetrics & Gynecology
DX: Z34.90 Encounter for supervision of normal pregnancy, unspecified, unspecified trimester (principal); Z72.51 High risk heterosexual behavior
CPT/HCPCS: 36415; 86695; 86790

== ENCOUNTER → 2021-09-20 12:02 | Outpatient (CLI) | payer OTHER, SELFPAY | PROVIDERS: Visit Provider Nurse Practitioner Obstetrics & Gynecology | DX: Z34.90 Encounter for supervision of normal pregnancy, unspecified, unspecified trimester (principal); Z3A.35 35 weeks gestation of pregnancy | CPT/HCPCS: 86403 ==

== ENCOUNTER → 2021-09-27 12:43 | Outpatient (CLI) | payer OTHER, SELFPAY ==
--- NOTE | 2021-09-27 12:43 | US_ITS ---
PROCEDURE: US OB >= 14 WEEKS FETUS CLINICAL INDICATION: lga COMPARISON: US US OB >= 14 WEEKS FETUS from 06/07/2021 FINDINGS: There is a single live intrauterine gestation in cephalic presentation. heart body motion noted. The cervix is closed measuring 3 cm. Estimated weight is 3637 g/8 lb 0 oz which is 97th percentile indicating large for gestational age. The placenta is anterior and grade 2. Measurements: Average ultrasound age 38weeks 3days. Gestational Age 38weeks 3days Estimated due date by ultrasound age 1210/08/2021. Estimated weight 3,637g BPD = 38weeks 1day HC = 37weeks 5days AC = 40weeks 1day FL = 37weeks 2days Growth Percentile= 63Percent% Heart Rate = 129bpm HC/AC is 0.92 CI is 0.8 FL/BPD is 0.78 FL/AC is 0.2 Biophysical profile is 8 of 8. ROWAN is within normal limits at 19 cm. IMPRESSION: Live IUP at 38 weeks 3 days with an estimated weight of 3637 g which is 97th percentile indicating large for gestational age. Biophysical profile 8 of 8 ROWAN at 19 cm Dictated by: Pawel Cowan MD 09/27/2021 16:23 Pawel Cowan MD in [place] 09/27/2021 16:23
== END ==
PROVIDERS: PCP Nurse Practitioner Obstetrics & Gynecology; Visit Provider Nurse Practitioner Obstetrics & Gynecology
DX: O36.60X0 Maternal care for excessive fetal growth, unspecified trimester, not applicable or unspecified (principal)
CPT/HCPCS: 76805; 76819

== ENCOUNTER 2021-09-29 22:04 | Outpatient (CLI) | payer OTHER, SELFPAY ==
[2021-09-29 22:13] VITALS: BP 134/78; PULSE 93; RESP 18; TEMP 36.9; O2SAT 96; BMI 41.9
[2021-09-29 22:40] LABS: Microscopic, Urine URINE MICROSCOPIC (MICROSCOPIC)
[2021-09-29 22:47] LABS: Appearance,Urine SL CLOUDY (Clear); Bilirubin,Urine Negative (Negative); Blood, Urine TRACE-L (Negative); Color,Urine YELLOW (Yellow); Glucose,Urine (UA) Negative (Negative); Ketones,Urine Negative (Negative); Leukocyte Esterase,Urine 3+ (Negative); Nitrate,Urine Negative (Negative); Protein,Urine Negative (Negative); Urobilinogen,Urine 0.2 EU/dl (0.2)
[2021-09-29 22:57] LABS: Amphetamine/Metha Screen,Urine Negative ng/ml (<1000)
[2021-09-29 22:58] LABS: Barbiturates Screen,Urine Negative ng/ml (<200)
[2021-09-29 22:59] LABS: Benzodiazepines Screen,Urine Negative ng/ml (<200); Cannabinoid Screen,Urine Negative ng/ml (<50)
[2021-09-29 23:00] LABS: Cocaine Screen,Urine Negative ng/ml (<300); Methadone Screen,Urine Negative ng/ml (<300)
[2021-09-29 23:01] LABS: Opiate Screen,Urine Negative ng/ml (<300)
[2021-09-29 23:02] LABS: Bacteria,Urine 3+ /lpf; Phencyclidine Screen,Urine Negative ng/ml (<25)
== END 2021-09-30 00:30 | disposition home or self-care (01) ==
LOC: OBOUT 22:05 → OB 22:07
PROVIDERS: Visit Provider Nurse Practitioner Obstetrics & Gynecology
DX: O47.03 False labor before 37 completed weeks of gestation, third trimester (principal); Z3A.36 36 weeks gestation of pregnancy
CPT/HCPCS: 59025; 80305; 81001; 87086; 96365; 96372; G0463

== ENCOUNTER 2021-10-06 13:25 | Outpatient (CLI) | payer OTHER, SELFPAY ==
[2021-10-06 13:41] VITALS: BMI 41.9
[2021-10-06 14:00] LABS: Microscopic, Urine URINE MICROSCOPIC (MICROSCOPIC)
[2021-10-06 14:04] LABS: Appearance,Urine CLEAR (Clear); Bilirubin,Urine Negative (Negative); Blood, Urine Negative (Negative); Color,Urine YELLOW (Yellow); Glucose,Urine (UA) Negative (Negative); Ketones,Urine Negative (Negative); Leukocyte Esterase,Urine Negative (Negative); Nitrate,Urine Negative (Negative); PH,Urine 5.5 (5.0-8.5); Protein,Urine Negative (Negative); Specific Gravity, Urine <= 1.005 (1.005-1.030); Urobilinogen,Urine 0.2 EU/dl (0.2)
[2021-10-06 14:17] LABS: Barbiturates Screen,Urine Negative ng/ml (<200); Benzodiazepines Screen,Urine Negative ng/ml (<200)
[2021-10-06 14:18] LABS: Amphetamine/Metha Screen,Urine Negative ng/ml (<1000)
[2021-10-06 14:19] LABS: Cannabinoid Screen,Urine Negative ng/ml (<50); Cocaine Screen,Urine Negative ng/ml (<300)
[2021-10-06 14:20] LABS: Methadone Screen,Urine Negative ng/ml (<300); Opiate Screen,Urine Negative ng/ml (<300)
[2021-10-06 14:21] LABS: Phencyclidine Screen,Urine Negative ng/ml (<25)
[2021-10-06 14:41] VITALS: BMI 41.9
== END 2021-10-06 15:12 | disposition home or self-care (01) ==
LOC: OBOUT 13:28 → OB 13:31
PROVIDERS: Visit Provider Nurse Practitioner Obstetrics & Gynecology
DX: O60.03 Preterm labor without delivery, third trimester (principal); Z3A.38 38 weeks gestation of pregnancy
CPT/HCPCS: 59025; 80305; 81001; G0463

== ENCOUNTER 2021-10-15 13:39 | Outpatient (CLI) | payer OTHER, SELFPAY ==
[2021-10-15 13:48] VITALS: BMI 41.9
[2021-10-15 13:50] VITALS: BMI 41.5
[2021-10-15 14:01] LABS: Appearance,Urine CLEAR (Clear); Bilirubin,Urine Negative (Negative); Blood, Urine 1+ (Negative); Color,Urine YELLOW (Yellow); Glucose,Urine (UA) Negative (Negative); Ketones,Urine Negative (Negative); Leukocyte Esterase,Urine 3+ (Negative); Nitrate,Urine Negative (Negative); PH,Urine 6.5 (5.0-8.5); Protein,Urine Negative (Negative); Specific Gravity, Urine <= 1.005 (1.005-1.030); Urobilinogen,Urine 0.2 EU/dl (0.2)
[2021-10-15 14:02] LABS: Microscopic, Urine URINE MICROSCOPIC (MICROSCOPIC)
[2021-10-15 14:16] LABS: Amphetamine/Metha Screen,Urine Negative ng/ml (<1000)
[2021-10-15 14:17] LABS: Barbiturates Screen,Urine Negative ng/ml (<200)
[2021-10-15 14:18] LABS: Benzodiazepines Screen,Urine Negative ng/ml (<200); Cannabinoid Screen,Urine Negative ng/ml (<50)
[2021-10-15 14:19] LABS: Cocaine Screen,Urine Negative ng/ml (<300); Methadone Screen,Urine Negative ng/ml (<300)
[2021-10-15 14:20] LABS: Opiate Screen,Urine Negative ng/ml (<300)
[2021-10-15 14:21] LABS: Phencyclidine Screen,Urine Negative ng/ml (<25)
[2021-10-15 14:26] LABS: Bacteria,Urine 1+ /lpf
[2021-10-15 15:23] VITALS: BP 131/77; PULSE 99; RESP 16; TEMP 36.6; O2SAT 97; BMI 41.5
[2021-10-15 15:26] LABS: Fetal Membrane Rupture (Rapid) Negative (Negative)
== END 2021-10-15 17:08 | disposition home or self-care (01) ==
LOC: OBOUT 13:40 → OB 13:43
PROVIDERS: Visit Provider Obstetrics & Gynecology
DX: Z34.90 Encounter for supervision of normal pregnancy, unspecified, unspecified trimester (principal)
CPT/HCPCS: 59025; 80305; 81001; 84112; 87086; 96365; 96372; G0463

== ENCOUNTER 2021-10-16 13:59 | Inpatient (IN) | payer OTHER, SELFPAY ==
[2021-10-16] VITALS (10 sets, daily range): BP systolic 110–138; BP diastolic 60–86; PULSE 60–104; RESP 16–20; TEMP 36.7–37.4; O2SAT 96–99; BMI 41.9
--- NOTE | 2021-10-16 10:27 | SUR.PREOP ---
instructed pt to come in for preop labs
[2021-10-16 12:58] LABS: Fetal Membrane Rupture (Rapid) Negative (Negative)
[2021-10-16 13:58] LABS: Coronavirus 19, PCR Not Detected (NotDetected); Influenza A, PCR Not Detected (NotDetected); Influenza B, PCR Not Detected (NotDetected)
[2021-10-16 14:05] LABS: Basophils # 0.1 K/mm3 (0-0.2); Basophils % 0.7 % (0.1-2.0); Eosinophils % 0.1 % (0.1-12.0); Hematocrit 41.5 % (37.0-47.0); Lymphocytes # 1.9 K/mm3 (0.7-4.5); Mean Corpuscular HGB Conc 31.4 g/dL (31.8-35.4); Mean Corpuscular Hemoglobin 30.2 pg (27.0-31.2); Mean Corpuscular Volume 96.1 fl (81-99); Mean Platelet Volume 10.4 fl (7.4-10.4); Monocytes # 0.9 K/mm3 (0.1-1.0); Monocytes % 4.7 % (1.7-9.3); Neutrophils % 84.4 % (37.0-80.0); Platelet Count 212 K/mm3 (142-424); Red Blood Count 4.32 M/mm3 (4.20-5.40); Red Cell Distribution Width 16.1 % (11.5-17.5)
[2021-10-16 14:09] LABS: MANUAL DIFFERENTIAL MANUAL DIFFERENTIAL (MANUAL DIFF)
[2021-10-16 14:20] LABS: Chloride 105 mmol/L (98-107); Sodium 134 mmol/L (136-145)
[2021-10-16 14:24] LABS: Carbon Dioxide 21 mmol/L (22.0-30.0)
[2021-10-16 14:25] LABS: Anion Gap 12.1 mEq/L (5-15); Potassium 4.1 mmoL/L (3.5-5.1)
--- NOTE | 2021-10-16 14:25 | HMH.OBAPHP ---
OB - H&P: HPI Antepartum - History of Present Illness Chief complaint: Contractions, changes in cervix, large for gestational age History of present illness: She is a 21-year-old 1 para 0 at 39 and 2 weeks gestational age. She came in having regular contractions. We gave her a bolus of fluid but there was no change in the contraction pattern. There still every 2 minutes. Nonstress test is reactive. We did give her some Stadol since she was feeling the contractions. On examination her cervix had changed to 4 cm. As result of that we elected to perform a primary lower segment transverse section. She has an extremely large for gestational age infant and the surgery was planned for 48 hours from now. - History of Present Criteria for establishing EDC:: LMP confirmed by 1st trimester US care: good care Ultrasounds: normal 1st trimester US, normal mid trimester US Obstetrical complications: none, other Medical complications: none - Labs Blood type: A (+) positive Rubella: immune RPR/VDRL: nonreactive GBS status: negative HBsAG: negative [facility] History I have reviewed the patient's past medical history: Yes Medical History: Reports:: Anxiety, Asthma, Depression, Hiatal Hernia, Migraine Denies:: Cancer, Diabetes Mellitus Type 1, Diabetes Mellitus Type 2, Internal Pacemaker, MRSA, Seizures *Have you ever received a pneumonia vaccine?: No *Have you received a flu vaccine this season?: No Other Medical History: Reports: Other. Denies: Blood Transfusion Reaction Laterality Cases: Bilateral: Tonsillectomy Other Surgeries: Yes: Hernia Repair, Other. No: , Pacemaker Amputation: No Fractures: No - *Social History Smoking Status: Current every day smoker Tobacco Type: cigarettes # Packs/Day (cigarettes): 1 #Yrs smoked (if former smoker): 1 Alcohol Intake: never Alcohol Intake Frequency:: holidays/special occasions only Substance Use Type: denies use *Occupational Status:: unemployed Housing: house Household Members: family *Travel in the last 8 weeks: None - Psychiatric History Pschychiatric History:: Reports:: Anxiety, Depression Denies:: Suicide Attempt Family Hx:: Hyperlipidemia, Hypertension Para: 0 Review of Systems - Review of Systems Review of systems:: pertinent systems reviewed and negative unless documented below Meds Home Medications Medication Instructions Recorded Confirmed Type ondansetron 4 mg disintegrating 4 mg PO Q6H PRN #30 tab 04/18/21 10/12/21 Rx tablet prenat.vits,reynold,[id number] 1 tab PO DAILY 04/18/21 10/12/21 History ferrous sulfate 325 mg (65 mg 325 mg PO DAILY #30 tab 05/16/21 10/12/21 Rx iron) tablet famotidine 20 mg tablet 20 mg PO DAILY #30 tab 06/27/21 10/12/21 Rx Allergies Allergy/AdvReac Type Severity Reaction Status Date / Time No Known Allergies Allergy Verified 10/12/21 11:01 OB - H&P: Exam - Physical Exam Vital signs: Temp Pulse Resp BP Pulse Ox 98.1 F 96 H 18 128/80 97 10/16/21 13:44 10/16/21 13:44 10/16/21 13:44 10/16/21 13:44 10/16/21 13:44 - Constitutional no acute distress - Routine HEENT Exam Head: Present: normocephalic Eye: Present: EOMI, PERRL ENT: Present: mucous membranes moist - Routine Neck Exam Present: supple, full ROM - Routine Respiratory Exam Absent: accessory muscle use (good air entry bilaterally), respiratory distress, wheezes, crackles - Routine Cardiovascular Exam Present: RRR. Absent: murmur - Routine Abdominal Exam Present: soft, normoactive bowel sounds. Absent: tenderness, distended, guarding - Routine Rectal Exam Patient deferred: visual exam, digital exam - Routine Exam Patient deferred: external exam, groin exam, perineal exam - Routine Extremities Exam Present: full ROM. Absent: cyanosis, edema - Routine Skin Exam Present: intact. Absent: cyanosis - Routine Neurological Exam Present: alert, oriented X3 -
[2021-10-16 14:27] LABS: Blood Urea Nitrogen 8 mg/dl (7-17); Creatinine Clearance Estimated 110 mL/min (50-200); Estimated Glomerular Filt Rate 89 ml/min (>60); GFR (African American) 108 ML/MIN (>60)
[2021-10-16 14:28] LABS: Calcium 9.4 mg/dl (8.4-10.2); Glucose 80 mg/dl (74-100)
[2021-10-16 14:55] LABS: Lymphocytes % 11 % (10-50); Monocytes % 2 % (2-9); Neutrophils % 87 % (42-76); Platelet Estimate Normal; Spherocytes 1+; Total Cells Counted 100
--- NOTE | 2021-10-16 15:42 | HMH.OPNOTE ---
Date of procedure: 10/16/21 Pre-op Diagnosis:: Term , large for gestational age infant, polyhydramnios, pelvic disproportion Post-op Diagnosis:: Term , polyhydramnios, large for gestational age infant, possible chorioamnionitis Procedure performed:: Primary lower segment transverse section Surgeon:: Olvin Quispe MD Innersole Fitter(s):: Dr. Gil UNIVERSITY ADMINISTRATOR:: Alfonso Parra Anesthesia: spinal Estimated blood loss (mL): 1,275 Clinical Note:: She is a 21-year-old 1 para 0 at 39 and 2 weeks gestational age. She came in having regular contractions. It was noted that when she got to the operating room there was fluid on the pad. This has been checked upstairs and the AmniSure was negative. She was known to have an extremely large for gestational age that was larger than the 97th centile. She was known to have mild polyhydramnios. I suspect that she may have had gestational diabetes but she passed her 1 hour sugar test. As result of this she was offered primary lower segment transverse section. We did the section 2 days earlier than scheduled due to her active labor. She was having contractions every 2 minutes. Her cervix was found to be 4 cm dilated. The risks and benefits of surgery were discussed with the patient a couple of weeks ago when she signed her initial consents. Operative findings:: She delivered a liveborn male child at 3:07 PM in the afternoon of October 16, 2021. Baby had Apgars of 8 at 1 minute and 9 at 5 minutes. There was copious amniotic fluid that had a foul odor possibly consistent with chorioamnionitis. There was a nuchal cord x1. She had what appeared to be enlarged ovaries that were polycystic. Operative note:: She was taken to the operating room where spinal anesthesia was found be adequate. She was prepped and draped in normal sterile fashion in the supine position with a leftward tilt. A Ortiz catheter was in the bladder. A Pfannenstiel skin incision was made with knife then carried through to the underlying layer of fascia with cautery. The fascia was opened in the midline with cautery and extended laterally using Cavazos scissors. Brittany clamps were applied to the superior aspect of the fascial incision which was tented up and the underlying rectus muscles dissected off using cautery. The Brittany clamps were then applied to the inferior aspect of the fascial incision which in a similar fashion was tented up and the underlying rectus muscles dissected off using cautery. The rectus muscles were then in the midline, the peritoneum identified, and entered sharply with Metzenbaum scissors. This incision was then extended superiorly and inferiorly with cautery. We had good visualization of the bladder inferiorly. We then inserted an Reddy retractor. The bladder peritoneum was then opened in the midline and extended laterally using Metzenbaum scissors. A bladder flap was created digitally. Transverse incision was made through the uterine muscle to the amnion. This incision was then extended laterally using fingers traction. The amnion was entered sharply with knife. There was clear amniotic fluid. There was copious amniotic fluid and it had a foul smell. The 's head was then delivered atraumatically. A loose nuchal cord was then reduced. This was followed by the anterior shoulder and the rest of the infant's body atraumatically. The oropharynx and nasopharynx were bulb suctioned. The infant was then handed off to Dr. Wright who assigned Apgars of 8 at 1 minute and 9 at 5 minutes. We then obtained cord blood. Using gentle traction on the cord and countertraction on the fundus I was able to easily deliver the placenta intact. It had a normal three-vessel cord. The uterus was then cleared of clots and debris . The uterine incision was then closed using running 0 Vicryl suture in a locked fashion. A second layer of the same suture was used to imbricate the fi
--- NOTE | 2021-10-16 15:54 | P.PN_ITS ---
[facility] Anesthesia Checklist - Patient Identification Patient Identification: Arm Band - Structural Data Admitted From: Inpatient Planned Operative Procedure/s: Primary C/S Consent for Planned Operative Procedure(s) Verified: Yes Verified Documents: Surgical Consent, History and Physical - NPO Status Verified Time NPO: 00:00 - Additional verifications Anesthesia Reactions: No Hx Blood Transfusions: No Blood Transfusion Reaction: No - Airway Assessment C-Spine Mobility Assessed: Yes TMJ Mobility Assessed: Yes Dentition: Good Dentition - Neurological Assessment Level of Consciousness: Awake, Alert - Anesthesia Plan Anesthesia Risk discussed: Yes Anesthesia Plan: Verified ASA Class: II Anesthesia Type: Spinal (with Bilateral TAP block) [facility] History I have reviewed the patient's past medical history: Yes Medical History: Reports:: Anxiety, Asthma, Depression, Hiatal Hernia, Migraine Denies:: Cancer, Diabetes Mellitus Type 1, Diabetes Mellitus Type 2, Internal Pacemaker, MRSA, Seizures *Have you ever received a pneumonia vaccine?: No *Have you received a flu vaccine this season?: No Other Medical History: Reports: Other. Denies: Blood Transfusion Reaction Anesthesia experience/problems:: nac Laterality Cases: Bilateral: Tonsillectomy Other Surgeries: Yes: Hernia Repair, Other. No: , Pacemaker Amputation: No Fractures: No - *Social History Smoking Status: Current every day smoker Tobacco Type: cigarettes # Packs/Day (cigarettes): 1 #Yrs smoked (if former smoker): 1 Alcohol Intake: never Alcohol Intake Frequency:: holidays/special occasions only Substance Use Type: denies use *Occupational Status:: unemployed Housing: house Household Members: family *Travel in the last 8 weeks: None - Psychiatric History Pschychiatric History:: Reports:: Anxiety, Depression Denies:: Suicide Attempt Family Hx:: Hyperlipidemia, Hypertension Para: 0
--- NOTE | 2021-10-16 15:55 | P.PN_ITS ---
[facility] Anesthesia Record Part I Intake, IV Amount: 2,000 Estimated blood loss (mL): 1,275 Urine output (mL): 650 Blood Pressure: 124/86 SaO2: 98 Pulse Rate: 85 Respiratory Rate: 16 Temperature: 99.3 F Patient is:: Awake, Stable Stable to PACU at:: 15:45
--- NOTE | 2021-10-16 16:10 | SUR.PHASEI ---
1540-notified Dr. Quispe at this time of QBL of 1273.90- Dr. Quispe ordered DASIA Sanchez to administer Methergine 0.2mg IM and to follow [facility] protocol
--- NOTE | 2021-10-16 16:31 | SUR.PHASEI ---
1418-attempted to start 2nd IV on patient at this time per protocol x4 unsucessful attempts per myself and Daniel,ELECTROLYSIS OPERATOR, lab notified of 2 units PRBc's to be on hold per protocol, called detailed report to NINO Rascon, notified of unsucessful attempts to start IV and reported she would attempt when pt arrived to OB department, vss 1421-pt transported to ob room 278 via hospital bed with filipe rails up and left in care of NINO Rascon with bed locked in lowest position, vss, pt stable
--- NOTE | 2021-10-16 16:56 | SUR.OPER ---
1507-viable infant male born at this time
[2021-10-16 17:13] LABS: Microscopic,Cath URINE MICROSCOPIC (MICROSCOPIC)
[2021-10-16 17:17] LABS: Appearance,Urine/Cath CLEAR (Clear); Bilirubin,Cath Negative (Negative); Blood, Urine/Cath Negative (Negative); Color,Urine/Cath YELLOW (Yellow); Glucose,Urine/Cath (UA) Negative (Negative); Ketones,Urine/Cath Negative (Negative); Leukocyte Esterase,Cath Negative (Negative); Nitrate,Cath Negative (Negative); Protein,Urine/Cath Negative (Negative); Specific Gravity, Urine/Cath <= 1.005 (1.005-1.030); Urobilinogen,Cath 0.2 EU/dl (0.2)
[2021-10-16 18:16] LABS: Microscopic, Urine URINE MICROSCOPIC (MICROSCOPIC)
[2021-10-16 18:22] LABS: Appearance,Urine CLEAR (Clear); Bilirubin,Urine Negative (Negative); Blood, Urine Negative (Negative); Color,Urine STRAW (Yellow); Glucose,Urine (UA) Negative (Negative); Ketones,Urine Negative (Negative); Leukocyte Esterase,Urine Negative (Negative); Nitrate,Urine Negative (Negative); Protein,Urine Negative (Negative); Specific Gravity, Urine <= 1.005 (1.005-1.030); Urobilinogen,Urine 0.2 EU/dl (0.2)
[2021-10-16 18:36] LABS: Bacteria,Urine Trace /lpf; Squamous Epithelial Cell,Urine Occasional #/hpf (0-5)
[2021-10-16 18:42] LABS: Benzodiazepines Screen,Urine Negative ng/ml (<200)
[2021-10-16 18:43] LABS: Amphetamine/Metha Screen,Urine Negative ng/ml (<1000)
[2021-10-16 18:44] LABS: Barbiturates Screen,Urine Negative ng/ml (<200); Cannabinoid Screen,Urine Negative ng/ml (<50)
[2021-10-16 18:45] LABS: Cocaine Screen,Urine Negative ng/ml (<300)
[2021-10-16 18:46] LABS: Methadone Screen,Urine Negative ng/ml (<300); Opiate Screen,Urine Negative ng/ml (<300)
[2021-10-16 18:47] LABS: Phencyclidine Screen,Urine Negative ng/ml (<25)
[2021-10-17 00:18] VITALS: BP 103/59; PULSE 91; RESP 18; TEMP 37.1; O2SAT 96
[2021-10-17 04:02] VITALS: BP 117/59; PULSE 98; RESP 18; TEMP 37.1; O2SAT 95
--- NOTE | 2021-10-17 07:27 | HMH.PHAINT ---
MEDICATION RECONCILIATION COMPLETED ON PATIENT USING EXTERNAL FILL HISTORY FROM PHARMACY. -SNEHA AMES, NATALIED
[2021-10-17 07:33] LABS: Basophils # 0.1 K/mm3 (0-0.2); Basophils % 0.3 % (0.1-2.0); Eosinophils % 0.1 % (0.1-12.0); Hematocrit 35.1 % (37.0-47.0); Lymphocytes # 2.6 K/mm3 (0.7-4.5); Mean Corpuscular HGB Conc 32.1 g/dL (31.8-35.4); Mean Corpuscular Hemoglobin 30.8 pg (27.0-31.2); Mean Corpuscular Volume 95.8 fl (81-99); Mean Platelet Volume 10.3 fl (7.4-10.4); Monocytes % 4.3 % (1.7-9.3); Neutrophils # 19.9 K/mm3 (1.8-7.8); Neutrophils % 84.3 % (37.0-80.0); Platelet Count 190 K/mm3 (142-424); Red Blood Count 3.67 M/mm3 (4.20-5.40); Red Cell Distribution Width 16.2 % (11.5-17.5); White Blood Count 23.6 K/mm3 (4.8-10.8)
[2021-10-17 07:46] LABS: MANUAL DIFFERENTIAL MANUAL DIFFERENTIAL (MANUAL DIFF)
[2021-10-17 08:47] LABS: Eosinophils % 1 % (0-3); Lymphocytes % 12 % (10-50); Monocytes % 3 % (2-9); Neutrophils % 84 % (42-76); Total Cells Counted 100
[2021-10-17 08:48] LABS: Platelet Estimate Normal; RBC Morphology Normal
--- NOTE | 2021-10-17 09:01 | P.PN_ITS ---
[facility] Anesthesia Record Part II Discharge Time: 16:15 Destination: Obstetric PACU nurse assessment reviewed?: Yes Patient Condition:: Good Anesthesia Complications:: None Swallowing reflex intact?: Yes Cyanosis?: No Blood Pressure: 124/80 Pulse Rate: 64 Temperature: 98.5 F Mental Status: Alert & Oriented Pain level:: 0 Nausea and/or vomitting:: None Intake, IV Amount: 0
[2021-10-17 09:02] VITALS: BP 124/80; PULSE 64; TEMP 36.9
[2021-10-17 09:32] LABS: Hemoglobin 11.4 g/dL (12.2-16.2)
--- NOTE | 2021-10-17 09:34 | HMH.ACPN2 ---
Internal Medicine - PN: Subj *Date: 10/17/21 *Time: 09:34 Interval history: She is doing well this morning. Her pain is reasonably well controlled. Her incision is clean and dry. She does have some upper abdominal pain but no pain along the incision. She complains of some cramps. She is afebrile. Her white blood cell is elevated at 23. It was 19 prior to surgery. We are awaiting her hemoglobin. Exam Vital signs and Labs for Last 24 Hours: Temp Pulse Resp BP Pulse Ox 98.5 F 64 18 124/80 95 10/17/21 09:02 10/17/21 09:02 10/17/21 04:02 10/17/21 09:02 10/17/21 04:02 Laboratory Results - last 24 hr 10/16/21 12:22: Membrane Rupture Negative 10/16/21 13:47: WBC 19.0 H, RBC 4.32, Hgb 13.0, Hct 41.5, MCV 96.1, MCH 30.2, MCHC 31.4 L, RDW 16.1, Plt Count 212, MPV 10.4, Neut % (Auto) 84.4 H, Lymph % (Auto) 10.0, [place] % (Auto) 4.7, Eos % (Auto) 0.1, Baso % (Auto) 0.7, Neut # (Auto) 16.0 H, Lymph # (Auto) 1.9, [place] # (Auto) 0.9, Eos # (Auto) 0.0, Baso # (Auto) 0.1, Total Counted 100, Neutrophils % (Manual) 87 H, Lymphocytes % (Manual) 11, Monocytes % (Manual) 2, Platelet Estimate Normal, Spherocytes 1+ 10/16/21 13:47: SARS-CoV-2 (PCR) Not detected, Influenza A Untype (PCR) Not detected, Influenza Type B (PCR) Not detected 10/16/21 13:47: Blood Type A Positive, Antibody Screen Negative, Crossmatch (AHG) See Detail 10/16/21 13:47: Sodium 134 L, Potassium 4.1, Chloride 105, Carbon Dioxide 21 L, Anion Gap 12.1, BUN 8, Creatinine 0.80, Estimated Creat Clear 110, Estimated GFR 89, Est GFR ( Amer) 108, Glucose 80, Calcium 9.4 10/16/21 14:50: Urine Color Yellow, Urine Appearance Clear, Urine pH 7.0, Ur Specific [place] <= 1.005, Urine Protein Negative, Urine Glucose (UA) Negative, Urine Ketones Negative, Urine Blood Negative, Urine Nitrate Negative, Urine Bilirubin Negative, Urine Urobilinogen 0.2, Ur Leukocyte Esterase Negative, Urine RBC None, Urine WBC None, Ur Squamous Epith Cells None, Urine Bacteria None 10/16/21 14:50: Urine Opiates Screen Negative, Urine Methadone Screen Negative, Ur Barbituates Screen Negative, Ur Phencyclidine Scrn Negative, Ur Amphetamines Screen Negative, U Benzodiazepines Scrn Negative, Urine Cocaine Screen Negative, U Marijuana (THC) Screen Negative 10/16/21 14:50: Urine Color Straw, Urine Appearance Clear, Urine pH 7.0, Ur Specific [place] <= 1.005, Urine Protein Negative, Urine Glucose (UA) Negative, Urine Ketones Negative, Urine Blood Negative, Urine Nitrate Negative, Urine Bilirubin Negative, Urine Urobilinogen 0.2, Ur Leukocyte Esterase Negative, Ur Squamous Epith Cells Occasional, Urine Bacteria Trace 10/17/21 07:10: WBC 23.6 H*, RBC 3.67 L, Hgb 11.4 L D, Hct 35.1 L, MCV 95.8, MCH 30.8, MCHC 32.1, RDW 16.2, Plt Count 190, MPV 10.3, Neut % (Auto) 84.3 H, Lymph % (Auto) 11.0, [place] % (Auto) 4.3, Eos % (Auto) 0.1, Baso % (Auto) 0.3, Neut # (Auto) 19.9 H, Lymph # (Auto) 2.6, [place] # (Auto) 1.0, Eos # (Auto) 0.0, Baso # (Auto) 0.1, Total Counted 100, Neutrophils % (Manual) 84 H, Lymphocytes % (Manual) 12, Monocytes % (Manual) 3, Eosinophils % (Manual) 1, Platelet Estimate Normal, RBC Morphology Normal I & O for Last 24 hours: Intake & Output 10/14/21 10/15/21 10/16/21 10/17/21 11:59 11:59 11:59 11:59 Intake Total 4200 / 4200 Output Total 100 / 100 Balance 4100 / 4100 Weight 276 lb - Constitutional no acute distress - *Routine HEENT Exam Head: Present: normocephalic Eye: Present: EOMI, PERRL ENT: Present: mucous membranes moist - *Routine Abdominal Exam Present: soft, normoactive bowel sounds. Absent: tenderness Comments: Her incision is clean and dry Assessment and Plan (1) LGA (large for gestational age) fetus affecting mother, antepartum Status: Acute Category: Medical Code(s): O36.60X0 - Maternal care for excessive growth, unspecified trimester, not applicable or unspecified (2) pelvic disproportion delivered Status: Acute Category: Medical Code(s):
[2021-10-17 20:08] VITALS: BP 108/57; PULSE 61; RESP 18; TEMP 36.4; O2SAT 98
[2021-10-18 01:02] VITALS: BP 126/61; PULSE 87; RESP 18; TEMP 36.4
[2021-10-18 08:34] LABS: Basophils % 0.2 % (0.1-2.0); Eosinophils # 0.2 K/mm3 (0.0-0.4); Hematocrit 34.4 % (37.0-47.0); Hemoglobin 10.8 g/dL (12.2-16.2); Lymphocytes # 2.6 K/mm3 (0.7-4.5); Lymphocytes % 15.4 % (10-50); Mean Corpuscular HGB Conc 31.5 g/dL (31.8-35.4); Mean Corpuscular Hemoglobin 30.5 pg (27.0-31.2); Mean Platelet Volume 10.3 fl (7.4-10.4); Monocytes # 0.7 K/mm3 (0.1-1.0); Monocytes % 4.3 % (1.7-9.3); Neutrophils # 13.5 K/mm3 (1.8-7.8); Platelet Count 214 K/mm3 (142-424); Red Blood Count 3.54 M/mm3 (4.20-5.40); Red Cell Distribution Width 16.2 % (11.5-17.5); White Blood Count 17.1 K/mm3 (4.8-10.8)
[2021-10-18 08:38] LABS: MANUAL DIFFERENTIAL MANUAL DIFFERENTIAL (MANUAL DIFF)
[2021-10-18 08:46] VITALS: BP 106/59; PULSE 69; RESP 18; TEMP 36.5; O2SAT 100
--- NOTE | 2021-10-18 09:17 | HMH.ACPN2 ---
Internal Medicine - PN: Subj *Date: 10/18/21 *Time: 09:17 Interval history: She is doing well this morning. She is eating and drinking and ambulating. Her pain is well controlled. Her white blood cell count has come down to 17. She is afebrile. She continues with her IV antibiotics. We will continue these for another day. Exam Vital signs and Labs for Last 24 Hours: Temp Pulse Resp BP Pulse Ox 97.6 F 87 18 126/61 98 10/18/21 01:02 10/18/21 01:02 10/18/21 01:02 10/18/21 01:02 10/17/21 20:08 Laboratory Results - last 24 hr 10/17/21 07:10: Hgb 11.4 L D 10/18/21 07:44: WBC 17.1 H D, RBC 3.54 L, Hgb 10.8 L, Hct 34.4 L, MCV 97.0, MCH 30.5, MCHC 31.5 L, RDW 16.2, Plt Count 214, MPV 10.3, Neut % (Auto) 79.0, Lymph % (Auto) 15.4, [place] % (Auto) 4.3, Eos % (Auto) 1.0, Baso % (Auto) 0.2, Neut # (Auto) 13.5 H, Lymph # (Auto) 2.6, [place] # (Auto) 0.7, Eos # (Auto) 0.2, Baso # (Auto) 0.0 I & O for Last 24 hours: Intake & Output 10/15/21 10/16/21 10/17/21 10/18/21 11:59 11:59 11:59 11:59 Intake Total 4200 / 4200 Output Total 100 / 100 Balance 4100 / 4100 Weight 276 lb - Constitutional no acute distress - *Routine HEENT Exam Head: Present: normocephalic Eye: Present: EOMI, PERRL ENT: Present: mucous membranes moist - *Routine Abdominal Exam Present: soft, normoactive bowel sounds. Absent: tenderness Comments: Her belly is soft and her incision is clean and dry. Assessment and Plan (1) LGA (large for gestational age) fetus affecting mother, antepartum Status: Acute Category: Medical Code(s): O36.60X0 - Maternal care for excessive growth, unspecified trimester, not applicable or unspecified (2) pelvic disproportion delivered Status: Acute Category: Medical Code(s): O33.9 - Maternal care for disproportion, unspecified (3) delivery delivered Status: Acute Category: Medical Code(s): O82 - Encounter for delivery without indication - Assessment and plan all Dx Assessment and Plan for all problems:: She continues to do well. She did have foul-smelling amniotic fluid. We have kept her on antibiotics. She remains afebrile. She is not tachycardic. We will continue on with the antibiotics for another 24 hours. We will plan to send her home tomorrow.
[2021-10-18 10:47] LABS: Eosinophils % 2 % (0-3); Lymphocytes % 10 % (10-50); Monocytes % 2 % (2-9); Neutrophils % 86 % (42-76); Platelet Estimate Normal; RBC Morphology Normal; Total Cells Counted 100
[2021-10-18 16:30] VITALS: BP 121/55; PULSE 79; RESP 18; TEMP 36.4; O2SAT 97
[2021-10-18 19:42] VITALS: BP 115/59; PULSE 81; RESP 18; TEMP 36.7; O2SAT 96
[2021-10-19 04:04] VITALS: BP 99/56; PULSE 60; RESP 17; TEMP 36.4; O2SAT 96
--- NOTE | 2021-10-19 06:51 | SW/DCPLANNER ---
PATIENT ADMITTED TO [facility] AND REFERRAL STATED THAT DAD HAS BEEN IN [facility] AND BACK IN 2019 PATIENT ATTEMPTED SUICIDE.. PATIENT CAME INTO THE HOSPITAL AND DELIVERED A LIVE BORN FEMALE VIA . WHEN I WENT IN TO VISIT SHE WAS HOLDING THE BABY, DAD WAS IN THE ROOM AND HIS SISTER. THEY WERE ALL SUPPORTIVE OF PATIENT.. SHE RESIDES WITH INFANTS FATHER ON [facility] HERE IN [place]. SHE IS INVOLVED WITH WIC AND SHE IS GOING TO USE THE HANDS PROGRAM, THIS IS HER FIRST CHILD. THEY ALSO RECEIVE FOOD STAMPS, HAS A CARSEAT WHICH IS IN THE ROOM, DIAPERS, BOTTLES, CRIB AND PLENTY OF CLOTHES. BABY'S FATHER WORKS FOR THE LOCAL [employer] DEPT AND HE STATED WHEN PATIENT AND DISCHARGE HE WILL USE THE CAR SEAT SAFETY CHECK AT THE FIRE DEPT. DR FOUNTAIN WAS CHOSEN THE INFANTS DOCTOR. THERE IS NO DRUG HISTORY AND PATIENT CHOSE JUVENAL TRUJILLO THE INFANTS NAME. PATIENT WILL REMAIN IN THE HOSPITAL FOR A COUPLE OF DAYS SINCE SHE HAD A PRIOR TO DISCHARGING HOME.. APPEARS SHE HAS WHAT SHE NEEDS TO TAKE HER BABY HOME.. UNLESS THERE ARE ISSUES, NO OTHER FOLLOW UP AT THIS TIME IS NECESSARY.
[2021-10-19 08:00] VITALS: BP 117/69; PULSE 76; RESP 18; TEMP 36.8; O2SAT 97
--- NOTE | 2021-10-19 09:41 | HMH.OBDCSM ---
General - General Admission date:: 10/16/21 Discharge date: 10/19/21 HPI - History of Present Illness History of present illness: She is a 21-year-old 1 para 0 at 39 and 2 weeks gestational age. She came in having regular contractions. It was noted that when she got to the operating room there was fluid on the pad. This has been checked upstairs and the AmniSure was negative. She was known to have an extremely large for gestational age that was larger than the 97th centile. She was known to have mild polyhydramnios. I suspect that she may have had gestational diabetes but she passed her 1 hour sugar test. As result of this she was offered primary lower segment transverse section. We did the section 2 days earlier than scheduled due to her active labor. She was having contractions every 2 minutes. Her cervix was found to be 4 cm dilated. The risks and benefits of surgery were discussed with the patient a couple of weeks ago when she signed her initial consents. Hospital Course Hospital Course: On October 16, 2021 she underwent a primary lower segment transverse section and delivered a liveborn male child at 3:07 PM. The baby weighed 10 pounds. He had Apgars of eight at 1 minute and nine at 5 minutes. There was a nuchal cord x1. She has done well post and has remained afebrile throughout her hospitalization. She is eating and drinking and ambulating. She is bottlefeeding. Her lochia is normal. She has a positive blood, she is rubella immune and was group B streptococcus negative. She had very foul-smelling amniotic fluid and as a result of that both her and the baby have been on IV antibiotics. She has remained afebrile. Her white count has come down. The baby is doing well. There are no bacteria on the cultures. She is discharged home to follow-up with me in approximately 2 weeks time. She will continue with her vitamins and iron. She is given the usual instructions with respect to limiting her activity, driving and sexual activity. She was given instructions with respect to wound care. She has done very well with a T AP block. Her condition on discharge is stable and improved. Rhogam Administration: Not Indicated Objective Vital signs: Temp Pulse Resp BP Pulse Ox 98.2 F 76 18 117/69 97 10/19/21 08:00 10/19/21 08:00 10/19/21 08:00 10/19/21 08:00 10/19/21 08:00 no acute distress - *Routine HEENT Exam Head: Present: normocephalic Eye: Present: EOMI, PERRL ENT: Present: mucous membranes moist Results Labs on day of discharge: Labs from last 24 hours 10/18/21 07:44 Total Counted 100 Neutrophils % (Manual) 86 H Lymphocytes % (Manual) 10 Monocytes % (Manual) 2 Eosinophils % (Manual) 2 Platelet Estimate Normal RBC Morphology Normal DS: Diagnosis - Discharge Diagnosis (1) LGA (large for gestational age) fetus affecting mother, antepartum Status: Acute (2) pelvic disproportion delivered Status: Acute (3) delivery delivered Status: Acute Discharge Plan - Patient Discharge Instructions ACTIVITY: No heavy lifting DIET: continue same diet Additional Instructions: *Nothing in the Vagina for 6 weeks* *No heavy lifting* *No strenuous activity* *No driving while on opioid pain medication* Patient Instructions: Depression, Hemorrhage, DI for , DI for Pre-eclampsia, DI for Surgical Site Infection, [facility] Post Discharge Instructions, Preventing the Spread of Coronavirus Discharge Instructions - Follow up Plan Follow up with: Olvin Quispe MD [Staff Physician] - 11/01/21 1:30 pm Disposition: Home, Self-Care Condition at discharge:: Stable Home Medications: Home Medications Medication Instructions Recorded Confirmed Type ondansetron 4 mg disintegrating 4 mg PO Q6H PRN #30 tab 04/18/21 10/16/21 Rx tablet prenat.vits,reynold,web-ooto-cxvxf 1 tab
== END 2021-10-19 12:15 | disposition home or self-care (01) | DRG 788 ==
LOC: OBOUT 14:00 → OB 14:00
PROVIDERS: Admitting Provider Nurse Practitioner Obstetrics & Gynecology; Visit Provider Nurse Practitioner Obstetrics & Gynecology
PROC: 10D00Z1 Extraction of Products of Conception, Low, Open Approach (ICD-10-PCS; CPT 59514; principal; 2021-10-16 14:00)
DX: O40.3XX0 Polyhydramnios, third trimester, not applicable or unspecified (principal); Z3A.39 39 weeks gestation of pregnancy; Z37.0 Single live birth; O33.5XX0 Maternal care for disproportion due to unusually large fetus, not applicable or unspecified
CPT/HCPCS: 59514; 36415; 59025; 80048; 80305; 81001; 84112; 85007; 85025; 86850; 87086; 88307; 94761; 96360; 96365; 96367; 96372; C9290; C9803; G0283; G0463; J0595; J2405; U0003; U0005

== ENCOUNTER → 2022-02-01 15:34 | Outpatient (CLI) | payer OTHER, SELFPAY ==
[2022-02-01 18:06] LABS: HCG,Quantitative < 2 mIU/ml (0-5.42)
== END ==
PROVIDERS: Visit Provider Nurse Practitioner Obstetrics & Gynecology
DX: N92.6 Irregular menstruation, unspecified (principal)
CPT/HCPCS: 36415; 84702

== ENCOUNTER → 2022-03-20 10:41 | Outpatient (CLI) | payer OTHER, SELFPAY ==
[2022-03-20 11:55] LABS: HCG,Quantitative 131 mIU/ml (0-5.42)
== END ==
PROVIDERS: Visit Provider Nurse Practitioner Obstetrics & Gynecology
DX: Z32.00 Encounter for pregnancy test, result unknown (principal)
CPT/HCPCS: 36415; 84702

== ENCOUNTER → 2022-03-27 11:02 | Outpatient (CLI) | payer OTHER, SELFPAY ==
[2022-03-27 12:29] LABS: HCG,Quantitative 1585 mIU/ml (0-5.42)
== END ==
PROVIDERS: Visit Provider Nurse Practitioner Obstetrics & Gynecology
DX: Z34.90 Encounter for supervision of normal pregnancy, unspecified, unspecified trimester (principal)
CPT/HCPCS: 36415; 84702

== ENCOUNTER 2022-03-30 20:33 | Emergency (ER) | payer OTHER, SELFPAY ==
--- NOTE | 2022-03-30 20:32 | ECG_ITS ---
APPROVED REPORT Exam: Resting ECG HR:83 bpm ECG Measurements Heart Rate 83 AXES [place] 123 P 35 QRSd 83 QRS 85 QT 347 T 64 QTc 387 Conclusion SINUS RHYTHM WITH SINUS ARRHYTHMIA NORMAL ECG UNCONFIRMED REPORT Electronically signed by : Brandt Figueroa MD 04/01/2022 18:43:13
[2022-03-30 20:33] VITALS: BP 165/86; PULSE 81; RESP 18; TEMP 36.8; O2SAT 100; BMI 34.2
[2022-03-30 20:36] VITALS: BMI 34.2
[2022-03-30 20:56] LABS: Microscopic, Urine URINE MICROSCOPIC (MICROSCOPIC)
--- NOTE | 2022-03-30 20:59 | HMH.EDCP ---
ED Disposition Clinical Impression: Epigastric pain, Atypical chest pain Qualifiers: Weeks of gestation: less than 8 weeks Qualified Code(s): Z3A.01 - Less than 8 weeks gestation of Disposition: Home, Self-Care Condition on Discharge: Good Instructions: DI for -- Discomforts and Remedies Additional Instructions: use meds and call dr quispe Prescriptions: Famotidine [Pepcid] 40 mg PO DAILY #30 tab Transmission Status: Pending to [facility] Promethazine HCl [Phenergan 12.5mg tablet] 12.5 mg PO Q8H PRN #30 tab PRN Reason: Nausea And Vomiting Transmission Status: Pending to [facility] Referrals: Provider,MD Echo [Primary Care Provider] - Olvin Quispe MD [Staff Physician] - - Critical Care Critical Care Time: No Attestation: On 03/30/22, the high probability of a clinically significant, sudden or life threatening deterioration of the following system(s) required my full and direct attention, intervention and personal management. The time I documented below is in addition to time spent performing reported procedures but includes the following listed in this critical care notation. Medical Decision Making - Medical Records Medical records reviewed: Yes: I reviewed the patient's medical records. - Sandip Inquiry Pt receiving controlled substance: No Vital Signs: 03/30/22 20:33 03/30/22 21:11 03/30/22 21:31 Temperature 98.2 F Temperature Source Oral Pulse Rate 67 80 Pulse Rate [Left] 81 Respiratory Rate 18 Blood Pressure 122/63 124/65 Blood Pressure [Right Arm] 165/86 H Blood Pressure Mean [Right Arm] 112 02 Sat by Pulse Oximetry 100 97 98 Oxygen Delivery Method Room Air Room Air Room Air 03/30/22 22:00 Temperature Temperature Source Pulse Rate 83 Pulse Rate [Left] Respiratory Rate Blood Pressure 126/73 Blood Pressure [Right Arm] Blood Pressure Mean [Right Arm] 02 Sat by Pulse Oximetry 99 Oxygen Delivery Method Room Air - Lab Data Lab results reviewed: Yes: I reviewed the patient's lab results. Lab Results 03/30/22 20:53: Urine Color Yellow, Urine Appearance Clear, Urine pH 7.0, Ur Specific [place] 1.025, Urine Protein Negative, Urine Glucose (UA) Negative, Urine Ketones Negative, Urine Blood Negative, Urine Nitrate Negative, Urine Bilirubin Negative, Urine Urobilinogen 0.2, Ur Leukocyte Esterase Negative, Amorphous Sediment Trace, Urine Mucus Trace 03/30/22 20:53: Urine HCG, Qual Positive 03/30/22 20:57: Troponin I < 0.01, Amylase 64, HCG, Quant 6511 H 03/30/22 20:57: WBC 10.1, RBC 4.97, Hgb 13.4, Hct 39.6, MCV 79.8 L, MCH 26.9 L, MCHC 33.7, RDW 16.8, Plt Count 339, MPV 8.2, Neut % (Auto) 68.7, Lymph % (Auto) 22.4, [place] % (Auto) 3.5, Eos % (Auto) 2.6, Baso % (Auto) 2.8 H, Neut # (Auto) 6.9, Lymph # (Auto) 2.3, [place] # (Auto) 0.4, Eos # (Auto) 0.3, Baso # (Auto) 0.3 H 03/30/22 20:57: Sodium 138, Potassium 3.7, Chloride 106, Carbon Dioxide 24, Anion Gap 11.7, BUN 9, Creatinine 0.50 L, Estimated Creat Clear 282, Estimated GFR 153, Est GFR ( Amer) 185, Glucose 96, Calcium 10.0, Total Bilirubin 0.5, AST 32, ALT 28, Alkaline Phosphatase 98, C-Reactive Protein 3.5, Total Protein 8.0, Albumin 4.6, Globulin 3.4 H, Albumin/Globulin Ratio 1.4, Lipase 76 03/30/22 20:57: ESR 24 H 03/30/22 20:57: Procalcitonin 0.031 Result diagrams: 03/30/22 20:57 03/30/22 20:57 Orders (Tests/Meds): ED MEDICATIONS Generic Name Dose Route Start Last Admin Trade Name Freq PRN Reason Stop Dose Admin Sodium Chloride 1,000 mls @ 999 mls/hr 03/30/22 21:15 03/30/22 21:06 Sod Chlor 0.9% 1000ml Bag IV 03/30/22 22:15 999 mls/hr .Q1H1M JULIANO Administration Sodium Chloride 8 ml 03/30/22 20:59 Sodium Chloride 0.9% 10ml Vial IV 04/29/22 20:58 NEEDED PRN dilute pepcid Discontinued Medications Generic Name Dose Route Start Last Admin Trade Name Freq PRN Reason Stop Dose Admin Famotidine 20 mg 03/30/22 2
[2022-03-30 21:06] LABS: Basophils # 0.3 K/mm3 (0-0.2); Basophils % 2.8 % (0.1-2.0); Eosinophils # 0.3 K/mm3 (0.0-0.4); Eosinophils % 2.6 % (0.1-12.0); Hematocrit 39.6 % (37.0-47.0); Hemoglobin 13.4 g/dL (12.2-16.2); Lymphocytes # 2.3 K/mm3 (0.7-4.5); Lymphocytes % 22.4 % (10-50); Mean Corpuscular HGB Conc 33.7 g/dL (31.8-35.4); Mean Corpuscular Hemoglobin 26.9 pg (27.0-31.2); Mean Corpuscular Volume 79.8 fl (81-99); Mean Platelet Volume 8.2 fl (7.4-10.4); Monocytes # 0.4 K/mm3 (0.1-1.0); Monocytes % 3.5 % (1.7-9.3); Neutrophils # 6.9 K/mm3 (1.8-7.8); Neutrophils % 68.7 % (37.0-80.0); Platelet Count 339 K/mm3 (142-424); Red Blood Count 4.97 M/mm3 (4.20-5.40); Red Cell Distribution Width 16.8 % (11.5-17.5); White Blood Count 10.1 K/mm3 (4.8-10.8)
[2022-03-30 21:10] LABS: Appearance,Urine CLEAR (Clear); Bilirubin,Urine Negative (Negative); Blood, Urine Negative (Negative); Color,Urine YELLOW (Yellow); Glucose,Urine (UA) Negative (Negative); Ketones,Urine Negative (Negative); Leukocyte Esterase,Urine Negative (Negative); Nitrate,Urine Negative (Negative); Protein,Urine Negative (Negative); Specific Gravity, Urine 1.025 (1.005-1.030); Urobilinogen,Urine 0.2 EU/dl (0.2)
[2022-03-30 21:11] VITALS: BP 122/63; PULSE 67; O2SAT 97
[2022-03-30 21:12] LABS: Urine Pregnancy, HCG Qual. Positive (Negative)
[2022-03-30 21:15] LABS: Chloride 106 mmol/L (98-107); Potassium 3.7 mmoL/L (3.5-5.1); Sodium 138 mmol/L (136-145)
[2022-03-30 21:17] LABS: Blood Urea Nitrogen 9 mg/dl (7-17); Creatinine Clearance Estimated 282 mL/min (50-200); Estimated Glomerular Filt Rate 153 ml/min (>60); GFR (African American) 185 ML/MIN (>60)
[2022-03-30 21:18] LABS: Alanine Aminotransferase 28 U/L (12-78); Albumin Level 4.6 g/dl (3.5-5.0); Albumin/Globulin Ratio 1.4 (1.1-1.8); Alkaline Phosphatase 98 U/L (38-126); Anion Gap 11.7 mEq/L (5-15); Aspartate Amino Transferase 32 U/L (14-36); Bilirubin,Total 0.5 mg/dl (0.2-1.3); Carbon Dioxide 24 mmol/L (22.0-30.0); Globulin 3.4 g/dL (1.3-3.2); Glucose 96 mg/dl (74-100); Lipase 76 U/L (23-300)
[2022-03-30 21:19] LABS: Amorphous Sediment,Urine Trace /lpf; Mucus,Urine Trace /lpf
[2022-03-30 21:20] LABS: Amylase 64 U/L (30-110)
[2022-03-30 21:24] LABS: C-Reactive Protein 3.5 mg/L (0-4)
[2022-03-30 21:31] VITALS: BP 124/65; PULSE 80; O2SAT 98
[2022-03-30 21:35] LABS: Troponin I < 0.01 ng/ml (0.00-0.034)
[2022-03-30 21:38] LABS: HCG,Quantitative 6511 mIU/ml (0-5.42)
[2022-03-30 21:45] LABS: Erythrocyte Sedimentation Rate 24 mm/hr (0-20)
[2022-03-30 22:00] VITALS: BP 126/73; PULSE 83; O2SAT 99
[2022-03-30 22:33] LABS: Procalcitonin 0.031 ng/mL (0.0-2.0)
--- NOTE | 2022-03-30 22:53 | PC.NURSE ---
speaking to Dr. Quispe
[2022-03-30 23:22] VITALS: BP 112/62; PULSE 82; RESP 18; TEMP 37.1; O2SAT 97
== END 2022-03-30 23:24 | disposition home or self-care (01) ==
PROVIDERS: Emergency Provider Emergency Medicine
DX: O99.611 Diseases of the digestive system complicating pregnancy, first trimester (principal); R10.13 Epigastric pain; G43.909 Migraine, unspecified, not intractable, without status migrainosus; O99.612 Diseases of the digestive system complicating pregnancy, second trimester; K44.9 Diaphragmatic hernia without obstruction or gangrene; O99.52 Diseases of the respiratory system complicating childbirth; J45.909 Unspecified asthma, uncomplicated; O99.340 Other mental disorders complicating pregnancy, unspecified trimester; F32.A Depression, unspecified; F41.9 Anxiety disorder, unspecified; O99.330 Smoking (tobacco) complicating pregnancy, unspecified trimester; Z79.899 Other long term (current) drug therapy; Z82.49 Family history of ischemic heart disease and other diseases of the circulatory system; Z3A.08 8 weeks gestation of pregnancy; Z83.438 Family history of other disorder of lipoprotein metabolism and other lipidemia
CPT/HCPCS: 80053; 81001; 81025; 82150; 83690; 84145; 84484; 84702; 85025; 85651; 86140; 93005; 96361; 96374; 96375; 99285

== ENCOUNTER 2022-04-03 16:01 | Emergency (ER) | payer OTHER, SELFPAY ==
[2022-04-03 16:20] VITALS: BP 108/72; PULSE 91; RESP 17; TEMP 37.1; O2SAT 98; BMI 40.1
--- NOTE | 2022-04-03 16:47 | HMH.EDUTC ---
[facility] [place] Clinical Impression: Otitis media Qualifiers: Otitis media type: unspecified Laterality: left Qualified Code(s): H66.92 - Otitis media, unspecified, left ear Disposition: Home, Self-Care Condition on Discharge: Good Instructions: Middle Ear Infection, DI for Nasal Congestion, Amoxicillin Additional Instructions: *Monitor Temp, Over the counter Motrin or Tylenol as directed/as needed Tylenol every 4 hours and Motrin every 6 hours (as long as your family doctor has told you that you can take it) for fever or pain. and straight to ER if unable to lower temp less than 101.0 after medication given *Warm salt water gargles may help to soothe the throat *Warm fluids like tea with honey may help to soothe the throat *Sleep elevated *Humidifier/Vaporizer Your throat swab was sent for culture. Those results are typically sent to your primary care. Be sure to follow up in 2-3 days with your family doctor/primary care physician if no improvement so they can review those result and treat if necessary. If you don?t have a primary care doctor, I recommend you get one but in the mean time, you will have to return to a walk in clinic Follow up IMMEDIATELY for new or worsening symptoms or no Noticeable improvement over the next 48-72 hours. 911 for difficulty breathing or swallowing You were tested for today for COVID19 your test result should be back in the next 24-48 hours, you may check your results on the [facility] My Health Portal Make sure to take your Vitamins Vit. C Vit D and Zinc if you can take them Prescriptions: Amoxicillin [Amoxicillin 500mg Cap] 500 mg PO TID #21 cap Transmission Status: Pending to [id number] Referrals: Provider,Referral, [Primary Care Provider] - As needed Forms: Work/School Release Medical Decision Making - Sandip Inquiry Pt receiving controlled substance: No Sandip was queried for this patient: No Vital Signs: 04/03/22 16:20 Temperature 98.7 F Temperature Source Oral Pulse Rate [Right Brachial] 91 H Respiratory Rate 17 Blood Pressure [Right Arm] 108/72 L Blood Pressure Mean [Right Arm] 84 Blood Pressure Source [Right Arm] Automatic Cuff Blood Pressure Position [Right Arm] Sitting 02 Sat by Pulse Oximetry 98 Oxygen Delivery Method Room Air - Lab Data Lab results reviewed: Yes: I reviewed the patient's lab results. Lab Results 04/03/22 16:24: Group A Strep Rapid Negative Orders (Tests/Meds): ORDERS Category Date Time Status Covid-19 Nasal PCR ([facility]) Routine Lab 04/03/22 16:25 Received Strep Screen Confirmation Stat Micro 04/03/22 16:24 Received Medical Decision Narrative: Amoxicillin verified by pharmacy that it safe for use during [facility] [place] HPI - General Stated complaint: cough,MENJIVAR, congestion Time Seen by Provider: 04/03/22 16:47 Mode of Arrival: Ambulatory Source of Information: Patient Limitations: No Limitations Description of Symptoms (Recalled from Triage Doc. by RN): PATIENT C/O EAR ACHE, SORE THROAT, COUGH, RUNNY NOSE AND HEADACHE SINCE YESTERDAY. RECENTLY EXPOSED TO COVID AT WORK HEENT Symptoms (Recalled from RN notes): Yes Resp Symptoms (Recalled from RN notes): Yes Skin Symptoms (Recalled from RN notes): No MS Symptoms (Recalled from RN notes): No Functional Status (Recalled from RN notes): WNL - History of Present Illness Provider Complaint: Patient states that she has been having pain in both ear for several days but started yesterday with sore throat, cough, runny nose, body aches and headache State that she was exposed to COVID at work States that she is 6wks OB - Related Data Previous Rx's Medication Instructions Recorded ondansetron 4 mg disintegrating 4 mg PO Q6H PRN #30 tab 04/18/21 tablet Docusate Sodium [Colace] 100 mg PO DAILY #30 cap 10/19/21 norgestimate 0.25 mg-ethinyl 1 tab PO DAILY #84 tab 11/29/21 estradiol 35 mcg tablet Famotidine [Pepcid] 40 mg PO DAILY #30 tab 03/30/22 Promethazine HCl
[2022-04-03 16:55] LABS: Strep Scrn Group A (Rapid) Negative (Negative)
[2022-04-03 17:00] VITALS: BP 108/72; PULSE 91; RESP 17; TEMP 37.1; O2SAT 98
== END 2022-04-03 17:04 | disposition home or self-care (01) ==
PROVIDERS: Emergency Provider Nurse Practitioner
DX: O99.351 Diseases of the nervous system complicating pregnancy, first trimester (principal); H66.92 Otitis media, unspecified, left ear; R05.9 Cough, unspecified; H92.09 Otalgia, unspecified ear; R07.0 Pain in throat; J34.89 Other specified disorders of nose and nasal sinuses; R51.9 Headache, unspecified; O99.891 Other specified diseases and conditions complicating pregnancy; Z20.828 Contact with and (suspected) exposure to other viral communicable diseases; O99.331 Smoking (tobacco) complicating pregnancy, first trimester; O99.511 Diseases of the respiratory system complicating pregnancy, first trimester; O99.211 Obesity complicating pregnancy, first trimester; E66.01 Morbid (severe) obesity due to excess calories; Z3A.01 Less than 8 weeks gestation of pregnancy
CPT/HCPCS: 87430; 99212; C9803; G0463; U0003; U0005

== ENCOUNTER → 2022-04-12 10:57 | Outpatient (CLI) | payer OTHER, SELFPAY | PROVIDERS: Visit Provider Obstetrics & Gynecology | DX: Z34.90 Encounter for supervision of normal pregnancy, unspecified, unspecified trimester (principal) ==

== ENCOUNTER → 2022-04-13 16:28 | Outpatient (CLI) | payer OTHER, SELFPAY ==
[2022-04-13 17:26] LABS: Basophils # 0.2 K/mm3 (0-0.2); Basophils % 1.8 % (0.1-2.0); Eosinophils # 0.1 K/mm3 (0.0-0.4); Hematocrit 40.7 % (37.0-47.0); Hemoglobin 12.7 g/dL (12.2-16.2); Lymphocytes % 20.9 % (10-50); Mean Corpuscular HGB Conc 31.1 g/dL (31.8-35.4); Mean Corpuscular Volume 83.5 fl (81-99); Mean Platelet Volume 8.3 fl (7.4-10.4); Monocytes # 0.4 K/mm3 (0.1-1.0); Monocytes % 4.3 % (1.7-9.3); Platelet Count 409 K/mm3 (142-424); Red Blood Count 4.88 M/mm3 (4.20-5.40); Red Cell Distribution Width 16.4 % (11.5-17.5); White Blood Count 9.7 K/mm3 (4.8-10.8)
[2022-04-13 21:08] LABS: Neisseria gonorrhoeae, NAA Negative (Negative)
[2022-04-15 09:40] LABS: HIV Screen 4th Generation wRfx Non Reactive (Non Reactive); Hepatitis B Surface Antigen Negative (Negative); Hepatitis C Antibody 0.4 s/co ratio (0.0-0.9); Rapid Plasma Reagin Ab Titer Non Reactive (NonRea<1:1)
[2022-04-15 10:26] LABS: Rubella Antibodies, IgG 3.61 index (Immune >0.99)
== END ==
PROVIDERS: Visit Provider Obstetrics & Gynecology
DX: Z34.90 Encounter for supervision of normal pregnancy, unspecified, unspecified trimester (principal)
CPT/HCPCS: 36415; 85025; 86592; 86703; 86762; 86850; 87086; 87088; 87186; 87340; 87380; 87491; 87591; G0432

== ENCOUNTER → 2022-07-12 14:19 | Outpatient (CLI) | payer OTHER, SELFPAY ==
--- NOTE | 2022-07-12 14:19 | US_ITS ---
FINAL REPORT CLINICAL HISTORY: 20 week anatomy scan FINDINGS: There is a single live intrauterine gestation. Presentation is cephalic. The cervix is closed and measures 3.86 cm. Placenta is anterior. Cardiac activity is confirmed at 153 bpm. The fetus is active. Three-vessel cord with satisfactory umbilical cord insertion. Four-chamber heart is noted. brain and ventricles are unremarkable. Chest and diaphragm are unremarkable. ABDOMEN: Both kidneys are unremarkable. Stomach is unremarkable. SPINE: No anomalies identified. Both arms and legs noted. AMNIOTIC FLUID: Appropriate amount. MEASUREMENTS: ULTRASOUND AGE: 20 weeks 6 days. GESTATION AGE: 20 weeks 2 days. ESTIMATED WEIGHT: 386 g GROWTH PERCENTILE: 80% BPD: 5.0 cm consistent with 21 weeks 0 days. OFD: 5 6.0 cm consistent with 20 weeks 4 days. HC: 17.3 cm consistent with 20 weeks 0 days. AC: 15.3 cm consistent with 20 weeks 4 days. FL: 3.7 cm consistent with 21 weeks 5 days. CEREBELLUM: 2 cm consistent with 20 weeks 4 days. HUMERUS: 3.3 cm consistent with 21 weeks 2 days. HC/AC: 1.13 CI: 82% FL/BPD: 74% FL/AC: 24% IMPRESSION: Single living IUP with an ultrasound age of 20 weeks 2 days. Reviewed, Interpreted and Dictated by Bonilla Aparicio MD Transcribed by Niranjan Daly Authenticated and [facility]
== END ==
PROVIDERS: PCP Obstetrics & Gynecology; Visit Provider Obstetrics & Gynecology
DX: Z34.90 Encounter for supervision of normal pregnancy, unspecified, unspecified trimester (principal); Z3A.20 20 weeks gestation of pregnancy
CPT/HCPCS: 76811

== ENCOUNTER 2022-08-26 12:19 | Emergency (ER) | payer OTHER, SELFPAY ==
[2022-08-26 14:15] VITALS: BP 124/64; PULSE 86; RESP 18; TEMP 36.6; O2SAT 98; BMI 39.2
--- NOTE | 2022-08-26 14:37 | EXP.UTC ---
Discharge Plan Disposition Patient Disposition: Home, Self-Care Condition: Good Prescriptions Prescriptions: New triamcinolone acetonide 0.025 % cream 1 applic topical BID Qty: 15 0RF Rx Instructions: apply to rash to abd No Action Classic 28 mg iron- 800 mcg tablet PO DAILY promethazine 12.5 mg tablet 12.5 mg PO Q8H PRN (Reason: Nausea And Vomiting) Qty: 30 1RF pantoprazole [Protonix] 40 mg tablet,delayed release (DR/EC) 40 mg PO DAILY Qty: 30 4RF Referrals Follow up/Referrals: Provider,Referral, MD [Primary Care Provider] - See instructions Clinical Impressions Clinical Impression: Contact dermatitis Instructions Patient Instructions: DI for Contact Dermatitis Discharge ED Provider: Oz ([facility])Lola [facility] [place] HPI General Stated complaint: Rash on stomach Mode of Arrival: Ambulatory Source of Information: Patient Limitations: No Limitations Time Seen by Provider: 08/26/22 14:38 Description of Symptoms (Recalled from Triage Doc. by RN): PATIENT C/O RASH TO STOMACH SINCE SATURDAY HEENT Symptoms (Recalled from RN notes): No Resp Symptoms (Recalled from RN notes): No Skin Symptoms (Recalled from RN notes): Yes MS Symptoms (Recalled from RN notes): No Functional Status (Recalled from RN notes): WNL History of Present Illness Provider Complaint: 22 yr old female presents for a rash on abd that itches since . pt is 26 weeks Related Data Home Medications Medication Instructions Recorded Confirmed vits no.126-ferrous fum tab PO DAILY 04/11/22 08/14/22 28 mg iron-folic acid 800 mcg tablet (Classic ) Previous Rx's Medication Instructions Recorded promethazine 12.5 mg tablet 12.5 mg PO Q8H PRN Nausea And 06/20/22 Vomiting #30 tabs pantoprazole 40 mg tablet,delayed 40 mg PO DAILY #30 tabs 07/17/22 release (Protonix) triamcinolone acetonide 0.025 % 1 applic topical BID #15 grams 08/26/22 topical cream Allergies Allergy/AdvReac Type Severity Reaction Status Date / Time No Known Allergies Allergy Verified 08/14/22 10:29 Worker's Comp Is this a Worker's Comp case?: No [facility] Medical History , PLAN CONSULTANT) Asthma Heartburn History of endometrial biopsy Screening for genetic disease carrier status Surgical History , PLAN CONSULTANT) History of History of tonsillectomy Social History , PLAN CONSULTANT) Smoking Status: Current every day smoker tobacco type: cigarettes packs per day: 1 second hand exposure: Yes alcohol intake: never counseling provided: none substance use type: denies use current occupational status: other Travel in the last 8 weeks: None household members: family housing: house 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: No caffeine: Yes ROS Obtained: Yes All systems reviewed & no additional complaints except as documented Constitutional Constitutional: Reports system reviewed and no additional complaints, except as documented Eyes Eyes: Reports system reviewed and no additional complaints, except as documented ENT Ears, Nose, Mouth, and Throat: Reports system reviewed and no additional complaints, except as documented Cardiovascular Cardiovascular: Reports system reviewed and no additional complaints, except as documented Respiratory Respiratory: Reports system reviewed and no additional complaints, except as documented Gastrointestinal Gastrointestingal: Reports system reviewed and no additional complaints, except as documented Musculoskeletal Musculoskeletal: Reports system reviewed and no additional complaints, except as documented Integumentary/Breasts Skin/Breast: Reports system reviewed and no additional complaints, except as documented and Reports rash Neurologic Neurologic: Reports syste
[2022-08-26 14:40] VITALS: BP 124/64; PULSE 86; RESP 18; TEMP 36.6; O2SAT 98
== END 2022-08-26 14:44 | disposition home or self-care (01) ==
PROVIDERS: Emergency Provider Nurse Practitioner Family
DX: L25.9 Unspecified contact dermatitis, unspecified cause (principal); Z33.1 Pregnant state, incidental
CPT/HCPCS: 99212; G0463

== ENCOUNTER 2022-08-30 00:24 | Emergency (ER) | payer OTHER, SELFPAY ==
[2022-08-30 00:24] VITALS: BP 128/74; PULSE 93; RESP 16; TEMP 36.6; O2SAT 99; BMI 39.5
[2022-08-30 00:43] LABS: Basophils # 0.1 K/mm3 (0-0.2); Basophils % 0.5 % (0.1-2.0); Eosinophils # 0.1 K/mm3 (0.0-0.4); Eosinophils % 1.2 % (0.1-12.0); Hematocrit 35.5 % (37.0-47.0); Hemoglobin 11.7 g/dL (12.2-16.2); Lymphocytes # 2.3 K/mm3 (0.7-4.5); Lymphocytes % 19.1 % (10-50); Mean Corpuscular HGB Conc 32.9 g/dL (31.8-35.4); Mean Corpuscular Hemoglobin 28.7 pg (27.0-31.2); Mean Corpuscular Volume 87.3 fl (81-99); Mean Platelet Volume 8.7 fl (7.4-10.4); Monocytes # 0.5 K/mm3 (0.1-1.0); Monocytes % 3.9 % (1.7-9.3); Neutrophils % 75.3 % (37.0-80.0); Platelet Count 344 K/mm3 (142-424); Red Blood Count 4.06 M/mm3 (4.20-5.40); Red Cell Distribution Width 16.3 % (11.5-17.5)
--- NOTE | 2022-08-30 00:47 | HMH.EDSYNC ---
Discharge Plan Disposition Patient Disposition: Home, Self-Care Chief Complaint: Syncope Prescriptions Prescriptions: No Action Classic 28 mg iron- 800 mcg tablet PO DAILY promethazine 12.5 mg tablet 12.5 mg PO Q8H PRN (Reason: Nausea And Vomiting) Qty: 30 1RF pantoprazole [Protonix] 40 mg tablet,delayed release (DR/EC) 40 mg PO DAILY Qty: 30 4RF triamcinolone acetonide 0.025 % cream 1 applic topical BID Qty: 15 0RF Rx Instructions: apply to rash to abd Referrals Follow up/Referrals: Provider,Referral, MD [Primary Care Provider] - See instructions Clinical Impressions Clinical Impression: , Vasovagal syncope Instructions Patient Instructions: DI for Syncope in Adults (Fainting) Discharge ED Provider: Nghia Gonzalez Syncope HPI General Chief Complaint: Syncope Stated Complaint: Syncope Time Seen by Provider: 08/30/22 00:47 Mode of Arrival: EMS Source of Information: Patient, Significant Other, EMS and Medical Record Limitations: No Limitations Description of Symptoms (Recalled from ER Triage Doc. by RN): pt states was holding child and began having epigastric pain and passed out. History of Present Illness HPI narrative: acute onset of upper abd pain and then felt nausea and muffled hearing and has syncopal episode for a few minutes and gradual back to bsaeline - this confirmed by ems and family - has no vag bleeding and is 28 weeks complaint: loss of consciousness Onset (ago): hour(s) Witnessed: yes - by bystander Current symptoms: back to baseline Treatments prior to arrival: none Related Data Home Medications Medication Instructions Recorded Confirmed vits no.126-ferrous fum tab PO DAILY 04/11/22 08/14/22 28 mg iron-folic acid 800 mcg tablet (Classic ) Previous Rx's Medication Instructions Recorded promethazine 12.5 mg tablet 12.5 mg PO Q8H PRN Nausea And 06/20/22 Vomiting #30 tabs pantoprazole 40 mg tablet,delayed 40 mg PO DAILY #30 tabs 07/17/22 release (Protonix) triamcinolone acetonide 0.025 % 1 applic topical BID #15 grams 08/26/22 topical cream Allergies Allergy/AdvReac Type Severity Reaction Status Date / Time No Known Allergies Allergy Verified 08/14/22 10:29 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 current occupational exposures/hazards: No caffeine: Yes ROS Obtained: Yes All systems reviewed & no additional complaints except as documented Physical Exam General General appearance: alert Head Head exam: normocephalic Eye Eye exam: Present PERRL and EOMI ENT ENT exam: Present mucous membranes moist and other (no evid of tongue biting ) Neck Neck exam: Present trachea midline Respiratory Respiratory exam: Present normal lung sounds bilaterally; Absent respiratory distress Cardiovascular Cardiovascular exam: Present regular rate; Absent systolic murmur Abdominal Exam Abdominal exam: Present soft and other (gravid with intact fht ); Absent tenderness or guarding Extremities Exam Extremities exam: Present full ROM Neurological Exam Neurological exam: Present alert, oriented X3, CN II-XII intact and other (gcs=15); Absent motor sensory deficit Psychiatric Psychiatric exam: Present normal affect Ski
[2022-08-30 00:49] LABS: Chloride 104 mmol/L (98-107); Potassium 3.6 mmoL/L (3.5-5.1); Sodium 137 mmol/L (136-145)
[2022-08-30 00:52] LABS: Alanine Aminotransferase 16 U/L (12-78); Albumin Level 3.9 g/dl (3.5-5.0); Albumin/Globulin Ratio 1.2 (1.1-1.8); Alkaline Phosphatase 120 U/L (38-126); Anion Gap 11.6 mEq/L (5-15); Aspartate Amino Transferase 25 U/L (14-36); Bilirubin,Total 0.3 mg/dl (0.2-1.3); Blood Urea Nitrogen 7 mg/dl (7-17); Calcium 9.6 mg/dl (8.4-10.2); Carbon Dioxide 25 mmol/L (22.0-30.0); Creatinine Clearance Estimated 404 mL/min (50-200); Estimated Glomerular Filt Rate 196 ml/min (>60); GFR (African American) 237 ML/MIN (>60); Globulin 3.3 g/dL (1.3-3.2); Glucose 87 mg/dl (74-100); Total Protein,Serum 7.2 g/dl (6.3-8.2)
[2022-08-30 01:08] LABS: Amylase 75 U/L (30-110)
[2022-08-30 01:09] VITALS: BP 124/64; BP 128/74; BP 136/72; PULSE 102; PULSE 74; PULSE 95
[2022-08-30 01:09] LABS: Lipase 58 U/L (23-300)
[2022-08-30 01:47] LABS: Microscopic, Urine URINE MICROSCOPIC (MICROSCOPIC)
[2022-08-30 02:18] VITALS: BP 125/65; PULSE 72; RESP 18; TEMP 36.6; O2SAT 99
[2022-08-30 02:41] LABS: Appearance,Urine CLEAR (Clear); Bilirubin,Urine Negative (Negative); Blood, Urine Negative (Negative); Color,Urine YELLOW (Yellow); Glucose,Urine (UA) Negative (Negative); Ketones,Urine Negative (Negative); Leukocyte Esterase,Urine Negative (Negative); Nitrate,Urine Negative (Negative); PH,Urine 6.5 (5.0-8.5); Protein,Urine Negative (Negative); Specific Gravity, Urine 1.025 (1.005-1.030)
[2022-08-30 02:52] LABS: Bacteria,Urine 1+ /lpf; Mucus,Urine 1+ /lpf
== END 2022-08-30 02:18 | disposition home or self-care (01) ==
PROVIDERS: Emergency Provider Emergency Medicine
DX: O26.893 Other specified pregnancy related conditions, third trimester (principal); R55 Syncope and collapse; Z3A.28 28 weeks gestation of pregnancy; J45.909 Unspecified asthma, uncomplicated
CPT/HCPCS: 80053; 81001; 82150; 83690; 85025; 96365; 99284

== ENCOUNTER 2022-08-30 02:18 | Outpatient (CLI) | payer OTHER, SELFPAY ==
--- NOTE | 2022-08-30 00:14 | ECG_ITS ---
APPROVED REPORT Exam: Resting ECG HR:79 bpm ECG Measurements Heart Rate 79 AXES AL 130 P 28 QRSd 90 QRS 75 QT 354 T 54 QTc 389 Conclusion SINUS RHYTHM NORMAL ECG UNCONFIRMED REPORT Electronically signed by : Brandt Figueroa MD 08/30/2022 21:15:57
[2022-08-30 03:00] VITALS: BP 125/78; PULSE 76; RESP 18; TEMP 37; O2SAT 99
[2022-08-30 03:48] VITALS: BMI 40.8
== END 2022-08-30 03:45 | disposition home or self-care (01) ==
LOC: OBOUT 02:20 → OB 02:21
PROVIDERS: Visit Provider Obstetrics & Gynecology
DX: O26.892 Other specified pregnancy related conditions, second trimester (principal); Z3A.27 27 weeks gestation of pregnancy; R55 Syncope and collapse
CPT/HCPCS: 59025; 93005

== ENCOUNTER → 2022-09-08 09:10 | Outpatient (CLI) | payer OTHER, SELFPAY ==
[2022-09-08 09:15] LABS: MANUAL DIFFERENTIAL MANUAL DIFFERENTIAL (MANUAL DIFF)
[2022-09-08 09:35] LABS: Basophils # 0.1 K/mm3 (0-0.2); Basophils % 0.4 % (0.1-2.0); Eosinophils # 0.2 K/mm3 (0.0-0.4); Eosinophils % 1.4 % (0.1-12.0); Hematocrit 35.2 % (37.0-47.0); Hemoglobin 11.4 g/dL (12.2-16.2); Lymphocytes # 1.8 K/mm3 (0.7-4.5); Mean Corpuscular HGB Conc 32.4 g/dL (31.8-35.4); Mean Corpuscular Hemoglobin 27.6 pg (27.0-31.2); Mean Corpuscular Volume 85.2 fl (81-99); Mean Platelet Volume 8.6 fl (7.4-10.4); Monocytes # 0.5 K/mm3 (0.1-1.0); Neutrophils # 9.8 K/mm3 (1.8-7.8); Neutrophils % 79.3 % (37.0-80.0); Platelet Count 349 K/mm3 (142-424); Red Blood Count 4.13 M/mm3 (4.20-5.40); Red Cell Distribution Width 15.4 % (11.5-17.5); White Blood Count 12.3 K/mm3 (4.8-10.8)
[2022-09-08 11:27] LABS: Glucose,Fasting 86 mg/dl (74-100)
[2022-09-08 11:28] LABS: Glucose 1 Hour 106 mg/dL (74-100)
[2022-09-08 12:56] LABS: Lymphocytes % 15 % (10-50); Monocytes % 5 % (2-9); Neutrophils % 80 % (42-76); Total Cells Counted 100
[2022-09-08 12:57] LABS: Platelet Estimate Normal; RBC Morphology Normal
== END ==
PROVIDERS: Visit Provider Obstetrics & Gynecology
DX: Z34.90 Encounter for supervision of normal pregnancy, unspecified, unspecified trimester (principal)
CPT/HCPCS: 36415; 82951; 85007; 85014; 85018; 85048; 85049

== ENCOUNTER → 2022-10-23 12:34 | Outpatient (CLI) | payer OTHER, SELFPAY ==
--- NOTE | 2022-10-23 12:34 | US_ITS ---
FINAL REPORT CLINICAL HISTORY: LGA FINDINGS: There is a single live intrauterine gestation. Presentation is cephalic. Placenta is anterior, grade 2. Heart rate is 150 beats per minute. Fetus is active. AMNIOTIC FLUID: Appropriate amount. ROWAN: 15 cm MEASUREMENTS: ULTRASOUND AGE: 38 weeks 0 days. GESTATION AGE: 36 weeks 0 days. ESTIMATED WEIGHT: 3347 g GROWTH PERCENTILE: 93% BPD: 9.4 cm corresponding with 38 weeks 2 days. OFD: 11.5 cm corresponding with 39 weeks 5 days. HC: 32.9 cm corresponding with 37 weeks 3 days. AC: 34.2 cm corresponding with 38 weeks 1 days. FL: 7.4 cm corresponding with 37 weeks 5 days. HC/AC: 0.96 CI: 82% FL/BPD: 78% FL/AC: 22% IMPRESSION: Single living IUP with an ultrasound age of 38 weeks 0 days. ROWAN of 15 cm Reviewed, Interpreted and Dictated by Kenny Lyons III, MD Transcribed by Chloé Le Authenticated and [facility]
== END ==
PROVIDERS: PCP Obstetrics & Gynecology; Visit Provider Obstetrics & Gynecology
DX: O36.60X0 Maternal care for excessive fetal growth, unspecified trimester, not applicable or unspecified (principal)
CPT/HCPCS: 76816

== ENCOUNTER → 2022-11-16 09:39 | Outpatient (CLI) | payer OTHER, SELFPAY ==
[2022-11-16 10:10] LABS: Basophils % 0.3 % (0.1-2.0); Eosinophils # 0.1 K/mm3 (0.0-0.4); Eosinophils % 0.7 % (0.1-12.0); Hematocrit 36.4 % (37.0-47.0); Hemoglobin 11.7 g/dL (12.2-16.2); Lymphocytes # 2.4 K/mm3 (0.7-4.5); Lymphocytes % 25.1 % (10-50); Mean Corpuscular HGB Conc 32.1 g/dL (31.8-35.4); Mean Corpuscular Hemoglobin 25.5 pg (27.0-31.2); Mean Corpuscular Volume 79.5 fl (81-99); Mean Platelet Volume 7.8 fl (7.4-10.4); Monocytes # 0.5 K/mm3 (0.1-1.0); Monocytes % 4.7 % (1.7-9.3); Neutrophils # 6.7 K/mm3 (1.8-7.8); Neutrophils % 69.2 % (37.0-80.0); Platelet Count 316 K/mm3 (142-424); Red Blood Count 4.58 M/mm3 (4.20-5.40); White Blood Count 9.7 K/mm3 (4.8-10.8)
[2022-11-16 10:41] LABS: Chloride 109 mmol/L (98-107); Potassium 3.9 mmoL/L (3.5-5.1); Sodium 137 mmol/L (136-145)
[2022-11-16 10:44] LABS: Alanine Aminotransferase 16 U/L (12-78); Albumin Level 3.6 g/dl (3.5-5.0); Albumin/Globulin Ratio 1.2 (1.1-1.8); Alkaline Phosphatase 217 U/L (38-126); Anion Gap 10.9 mEq/L (5-15); Aspartate Amino Transferase 23 U/L (14-36); Bilirubin,Total 0.5 mg/dl (0.2-1.3); Blood Urea Nitrogen 7 mg/dl (7-17); Calcium 9.2 mg/dl (8.4-10.2); Carbon Dioxide 21 mmol/L (22.0-30.0); Estimated Glomerular Filt Rate 152 ml/min (>60); GFR (African American) 183 ML/MIN (>60); Glucose 75 mg/dl (74-100); Total Protein,Serum 6.6 g/dl (6.3-8.2)
== END ==
PROVIDERS: Visit Provider Obstetrics & Gynecology
DX: Z98.891 History of uterine scar from previous surgery (principal)
CPT/HCPCS: 36415; 80053; 85025

== ENCOUNTER 2022-11-20 04:15 | Inpatient (IN) | payer OTHER, SELFPAY ==
[2022-11-20] VITALS (8 sets, daily range): BP systolic 114–158; BP diastolic 42–81; PULSE 61–88; RESP 15–18; TEMP 36.4–36.8; O2SAT 96–98; BMI 43.9
[2022-11-20 06:13] LABS: Microscopic, Urine URINE MICROSCOPIC (MICROSCOPIC)
[2022-11-20 06:13] LABS: Coronavirus 19, PCR Not Detected (NotDetected); Influenza A, PCR Not Detected (NotDetected); Influenza B, PCR Not Detected (NotDetected)
[2022-11-20 06:21] LABS: Basophils % 0.4 % (0.1-2.0); Eosinophils # 0.1 K/mm3 (0.0-0.4); Eosinophils % 0.5 % (0.1-12.0); Hematocrit 32.5 % (37.0-47.0); Hemoglobin 10.7 g/dL (12.2-16.2); Lymphocytes # 2.3 K/mm3 (0.7-4.5); Lymphocytes % 23.4 % (10-50); Mean Corpuscular HGB Conc 32.9 g/dL (31.8-35.4); Mean Corpuscular Hemoglobin 25.4 pg (27.0-31.2); Mean Corpuscular Volume 77.3 fl (81-99); Monocytes # 0.6 K/mm3 (0.1-1.0); Monocytes % 5.9 % (1.7-9.3); Neutrophils # 6.9 K/mm3 (1.8-7.8); Neutrophils % 69.9 % (37.0-80.0); Platelet Count 363 K/mm3 (142-424); Red Cell Distribution Width 16.7 % (11.5-17.5); White Blood Count 9.9 K/mm3 (4.8-10.8)
[2022-11-20 06:24] LABS: Chloride 110 mmol/L (98-107)
[2022-11-20 06:25] LABS: Potassium 3.9 mmoL/L (3.5-5.1); Sodium 136 mmol/L (136-145)
[2022-11-20 06:26] LABS: Appearance,Urine CLEAR (Clear); Bilirubin,Urine Negative (Negative); Blood, Urine TRACE-I (Negative); Color,Urine YELLOW (Yellow); Glucose,Urine (UA) Negative (Negative); Ketones,Urine Negative (Negative); Leukocyte Esterase,Urine 1+ (Negative); Nitrate,Urine Negative (Negative); Protein,Urine Negative (Negative); Specific Gravity, Urine 1.015 (1.005-1.030); Urobilinogen,Urine 0.2 EU/dl (0.2)
[2022-11-20 06:27] LABS: Blood Urea Nitrogen 5 mg/dl (7-17); Creatinine Clearance Estimated 169 mL/min (50-200); Estimated Glomerular Filt Rate 152 ml/min (>60); GFR (African American) 183 ML/MIN (>60)
[2022-11-20 06:28] LABS: Anion Gap 8.9 mEq/L (5-15); Calcium 8.6 mg/dl (8.4-10.2); Carbon Dioxide 21 mmol/L (22.0-30.0); Glucose 87 mg/dl (74-100)
[2022-11-20 06:35] LABS: Amphetamine/Metha Screen,Urine Negative ng/ml (<1000)
[2022-11-20 06:36] LABS: Barbiturates Screen,Urine Negative ng/ml (<200)
[2022-11-20 06:37] LABS: Benzodiazepines Screen,Urine Negative ng/ml (<200); Cannabinoid Screen,Urine Negative ng/ml (<50)
[2022-11-20 06:38] LABS: Cocaine Screen,Urine Negative ng/ml (<300)
[2022-11-20 06:39] LABS: Methadone Screen,Urine Negative ng/ml (<300)
[2022-11-20 06:40] LABS: Phencyclidine Screen,Urine Negative ng/ml (<25)
[2022-11-20 06:42] LABS: Opiate Screen,Urine Negative ng/ml (<300)
[2022-11-20 06:53] LABS: Bacteria,Urine Trace /lpf; RBC,Urine Occasional #/hpf (0-3)
--- NOTE | 2022-11-20 07:02 | HMH.PHAINT1 ---
Pharmacy Intervention Comments: MEDICATION RECONCILIATION COMPLETED ON PATIENT USING EXTERNAL FILL HISTORY FROM PHARMACY. -SNEHA AMES, NATALIED
--- NOTE | 2022-11-20 07:08 | EXP.ANES.CKL ---
[facility] Disclaimer: The information contained in this section may have been updated after the patient was seen, as this information can be updated by other users. Medical History Asthma Heartburn History of endometrial biopsy LGA (large for gestational age) fetus Maternal obesity affecting , antepartum Screening for genetic disease carrier status 05/29/22 - [facility] carrier screen negative for 14 conditions tested including CF, Fragile X and SMA Tobacco use affecting , antepartum Surgical History History of History of tonsillectomy Family History Other No significant family history Social History Smoking Status: Current every day smoker tobacco type: cigarettes packs per day: 1 second hand exposure: Yes alcohol intake: never counseling provided: none substance use type: denies use current occupational status: employed Travel in the last 8 weeks: None household members: family housing: house 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: No caffeine: Yes [facility] Anesthesia Checklist Patient Identification Patient Identification: Verbal (Name & ) Structural Data Admitted From: Inpatient Planned Operative Procedure/s: c/section Consent for Planned Operative Procedure(s) Verified: Yes NPO Status Verified Time NPO: 00:00 Additional verifications Anesthesia Reactions: No Hx Blood Transfusions: No Blood Transfusion Reaction: No Airway Assessment C-Spine Mobility Assessed: Yes TMJ Mobility Assessed: Yes Dentition: Good Dentition Neurological Assessment Level of Consciousness: Awake, Alert and Appropriate Anesthesia Plan Anesthesia Risk discussed: Yes Anesthesia Plan: Verified ASA Class: II Anesthesia Type: Spinal
--- NOTE | 2022-11-20 07:12 | EXP.OB.APHP ---
OB - H&P: HPI Antepartum History of Present Illness Chief complaint: Scheduled repeat section History of present illness: Ms Bernarda Domínguez is a 22 yo at 39w0d who presents to [facility] Labor and Delivery for scheduled repeat . History of x 1. She has had good care. Growth ultrasound 10/23/22 demonstrated EFW 93%ile. History of Present Criteria for establishing EDC:: LMP confirmed by 1st trimester US care: good care Ultrasounds: normal mid trimester US Obstetrical complications: previous Medical complications: none Labs Blood type: A (+) positive Rubella: immune RPR/VDRL: nonreactive HBsAG: negative [facility] Disclaimer: The information contained in this section may have been updated after the patient was seen, as this information can be updated by other users. Medical History (Updated 11/20/22 @ 07:20 by Lynne Hilton DO) 39 weeks gestation of Anemia affecting Asthma Heartburn History of endometrial biopsy LGA (large for gestational age) fetus Maternal obesity affecting , antepartum Screening for genetic disease carrier status Tobacco use affecting , antepartum Surgical History History of History of tonsillectomy Family History Other No significant family history Social History Smoking Status: Current every day smoker tobacco type: cigarettes packs per day: 1 second hand exposure: Yes alcohol intake: never counseling provided: none substance use type: denies use current occupational status: employed Travel in the last 8 weeks: None household members: family housing: house 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: No caffeine: Yes Review of Systems Review of Systems Review of systems:: pertinent systems reviewed and negative unless documented below Psychiatric Psychiatric: Reports anxiety and Reports depression Meds Home Medications and Allergies Home Medications Medication Instructions Recorded Confirmed Type vits no.126-ferrous fum 1 tab PO DAILY Supplement 04/11/22 11/20/22 History 28 mg iron-folic acid 800 mcg tablet (Classic ) pantoprazole 40 mg tablet,delayed 40 mg PO DAILY Heartburn 11/20/22 11/20/22 History release (Protonix) promethazine 12.5 mg tablet 12.5 mg PO Q8HP PRN Nausea And 11/20/22 11/20/22 History Vomiting New Prescriptions to Start Prescriptions: Allergies Allergy/AdvReac Type Severity Reaction Status Date / Time No Known Allergies Allergy Verified 11/14/22 15:05 OB - H&P: Exam Constitutional no acute distress and cooperative Routine HEENT Exam Head: Present normocephalic Eye: Absent conjunctivae pink ENT: Present mucous membranes moist Routine Neck Exam Present full ROM Routine Respiratory Exam Present CTA bilaterally and normal respiratory effort Routine Cardiovascular Exam Present RRR Routine Abdominal Exam Present soft (Gravid) and normoactive bowel sounds; Absent tenderness Routine Rectal Exam Patient deferred: visual exam Routine Exam Patient deferred: external exam Routine Extremities Exam Present full ROM; Absent edema or calf tenderness Routine Neurological Exam Present alert, oriented X3 and moving all extremities Routine Psychiatric Exam Present normal affect and cooperative OB - Results Labs Labs: Short CBC 11/20/22 Range/Units 05:15 WBC 9.9 (4.8-10.8) K/mm3 Hgb 10.7 L (12.2-16.2) g/dL Hct 32.5 L (37.0-47.0) % Plt Count 363 (142-424) K/mm3 BMP 11/20/22 05:15 Sodium 136 Potassium 3.9 Chloride 110 H Carbon Dioxide 21 L BUN 5 L Creatinine 0.50 L Glucose 87 Calcium 8.6 Urine 11/20/22 Range/Units 04:28 Urine Color Ye
--- NOTE | 2022-11-20 07:51 | SUR.OPER ---
0751-Viable male born at this time 0801-RT Deepika called w/ pH results. Cord blood pH-7.346. Results reported to MIGUEL Hunter
[2022-11-20 07:59] LABS: Cord Blood PH 7.35 (7.35-7.45)
--- NOTE | 2022-11-20 08:54 | P.PNANES_ITS ---
[facility] Anesthesia Record Part I Anesthesia Record I Intake, IV Amount: 1,000 Estimated blood loss (mL): 700 Urine output (mL): 300 Blood Pressure: 158/42 SaO2: 98 Pulse Rate: 63 Respiratory Rate: 15 Temperature: 97.5 F Patient is:: Awake Stable to PACU at:: 08:49
--- NOTE | 2022-11-20 08:59 | EXP.OP.NOTE ---
Date of procedure: 11/20/22 Pre-op Diagnosis:: 1. IUP at 39w0d 2. History of prior x 1 3. LGA baby 4. Maternal obesity 5. Maternal tobacco use 6. Anemia affecting 7. Anxiety 8. Depression Post-op Diagnosis:: 1. IUP at 39w0d 2. History of prior x 1 3. LGA baby 4. Maternal obesity 5. Maternal tobacco use 6. Anemia affecting 7. Anxiety 8. Depression Procedure performed:: Repeat Low Transverse section Surgeon:: Lynne Hilton DO Crane Hoist Or Lift Operator(s):: Tereza Zazueta MD OUTDOOR GUIDE:: Dee Dee Del Angel Anesthesia: spinal Estimated blood loss (mL): 700 Clinical Note:: Ms Bernarda Domínguez is a 22 yo at 39w0d who presents to [facility] Labor and Delivery for scheduled repeat . History of x 1. Growth ultrasound 10/23/22 demonstrated EFW 93 %ile. Operative findings:: 1. Live male baby (baby's name is Bib) weighing 9 lb 1 oz, AGPARS 9, 9 2. Grossly normal appearing uterus, bilateral fallopian tubes and ovaries 3. Grossly normal appearing placenta and umbilical cord Operative note:: The risks, benefits and alternatives of the procedure were reviewed with the patient. Informed consent was obtained. Patient was taken to the operating room where epidural was bolused. The patient received 3 grams of Ancef preoperatively. Patient was placed in dorsal supine position with a leftward tilt. SCDs in place. Ortiz catheter was inserted and was draining clear urine prior to the start of the procedure. heart tones were obtained. Patient was then prepped and draped in normal sterile fashion. Allis clamp test was performed to ensure adequate anesthesia. A Pfannenstiel skin incision was made 2 cm above pubic symphysis, above prior Pfannenstiel scar. This was carried through to underlying layer of fascia. Fascia was incised in midline, extended laterally with Cavazos scissors. Superior aspect of fascial incision was grasped with two Tio clamps, elevated up, and rectus muscle dissected off bluntly and sharply with Cavazos scissors. The retcus muscle was then in the midline and the peritoneum was entered bluntly with a digit. Peritoneal incision was then extended superiorly and inferiorly with good visualization of the bladder. Reddy retractor was inserted. Bladder flap was made using Metzenbaum scissors. The lower uterine segment was incised in a transverse fashion. Clear amniotic fluid was noted. Head was delivered without difficulty. Remainder of body was delivered without difficulty. Mouth and nares were bulb suctioned. Spontaneous cry was noted. Delayed cord clamping was performed for 60 seconds. The umbilical cord was clamped and cut. The was handed to awaiting pediatric staff in stable condition. Dr. Wright was present. Apgars were 9(1 min), 9(5 min). Section of umbilical cord was collected for cord gases. Cord blood was obtained. Gentle traction on the umbilical cord and uterine fundal massage delivered the placenta. Placenta was intact. Placenta will be sent to pathology for review. Uterus was cleared of all clots and debris with a moist laparotomy sponge. Corners of the uterine incision were grasped with Allis clamps. The uterine incision was reapproximated with # 1 Vicryl suture in a running, locked stitch. Second layer of the same stitch was used to imbricate the incision. Excellent hemostasis was noted. Posterior cul-de-sac was cleaned with moist laparotomy sponge. (Uterus returned to the abdomen)Gutters cleared of all clots and debris with a moist laparotomy sponge. Reinspection of the lower uterine segment demonstrated excellent hemostasis. At this point all instruments and sponges were removed from the pelvis.? The peritoneum was grasped with Brianna clamps x 3. The peritoneum was reapproximated with 0 Vicryl suture in a running stitch. Small amount of bleeding was noted from superior aspect of fascia. Vessel was suture ligated with 0 Vicryl. Yariel was applied over small amount of oozing under superi
[2022-11-20 16:20] LABS: POC Glucose,Bedside 50 (70-110)
[2022-11-21 07:09] LABS: Basophils # 0.1 K/mm3 (0-0.2); Basophils % 0.4 % (0.1-2.0); Eosinophils # 0.1 K/mm3 (0.0-0.4); Eosinophils % 0.6 % (0.1-12.0); Hematocrit 30.5 % (37.0-47.0); Lymphocytes # 2.5 K/mm3 (0.7-4.5); Lymphocytes % 22.1 % (10-50); Mean Corpuscular HGB Conc 32.7 g/dL (31.8-35.4); Mean Corpuscular Hemoglobin 25.2 pg (27.0-31.2); Mean Corpuscular Volume 77.2 fl (81-99); Mean Platelet Volume 8.6 fl (7.4-10.4); Monocytes # 0.5 K/mm3 (0.1-1.0); Monocytes % 4.7 % (1.7-9.3); Neutrophils # 8.1 K/mm3 (1.8-7.8); Neutrophils % 72.1 % (37.0-80.0); Platelet Count 362 K/mm3 (142-424); Red Blood Count 3.95 M/mm3 (4.20-5.40); Red Cell Distribution Width 16.8 % (11.5-17.5); White Blood Count 11.3 K/mm3 (4.8-10.8)
--- NOTE | 2022-11-21 07:34 | EXP.ACUTE.PN ---
Subjective *Date: 11/21/22 *Time: 07:34 Interval history: POD # 1 s/p RLTCS Doing well. Pain controlled. She is bottle feeding. Lochia is appropriate. Voiding without difficulty and passing flatus. Tolerating regular diet. Denies fever/chills, chest pain and shortness of breath. No headaches, vision changes/dizziness. No swelling. Medical Exam Vital signs and Labs for Last 24 Hours: Vital Signs Temp Pulse Pulse Resp BP BP Pulse Ox 11/20/22 15:49 18 11/20/22 10:31 17 11/20/22 09:19 61 16 126/76 97 11/20/22 09:09 62 16 139/71 96 11/20/22 08:59 61 16 145/81 H 98 11/20/22 08:49 97.5 F L 67 16 158/42 H 98 11/20/22 08:57 97.5 F L 63 15 158/42 H Intake and Output 11/20/22 11/20/22 11/21/22 15:59 23:59 07:59 Intake Total 1000 / 1000 Output Total 650 / 650 Balance 350 / 350 Intake: Intake, Total IV Amount 1000 / 1000 Output: Output, Urine Amount 650 / 650 Laboratory Results - last 24 hr 11/20/22 07:56: Cord ABG pH 7.35 11/20/22 16:12: POC Glucose 50 L 11/21/22 06:45: WBC 11.3 H, RBC 3.95 L, Hgb 10.0 L, Hct 30.5 L, MCV 77.2 L, MCH 25.2 L, MCHC 32.7, RDW 16.8, Plt Count 362, MPV 8.6, Neut % (Auto) 72.1, Lymph % (Auto) 22.1, [place] % (Auto) 4.7, Eos % (Auto) 0.6, Baso % (Auto) 0.4, Neut # (Auto) 8.1 H, Lymph # (Auto) 2.5, [place] # (Auto) 0.5, Eos # (Auto) 0.1, Baso # (Auto) 0.1 I & O for Labs for Last 24 Hours: Intake & Output 11/18/22 11/19/22 11/20/22 11/21/22 23:59 23:59 23:59 23:59 Intake Total 1000 / 1000 Output Total 650 / 650 Balance 350 / 350 Weight 281 lb Microbiology Reports for the Last 24 Hours: Microbiology 11/20/22 04:28 Urine,Clean Catch Urine Culture - Preliminary NO GROWTH AFTER 24 HOURS Head: Present atraumatic and normocephalic Neck: Present full ROM Respiratory: Present CTA bilaterally and normal respiratory effort Cardiac: Present Reg Rate and Rhythm GI: Present soft; Absent distention or tenderness Comments:: Uterine fundus firm and below umbilicus, Pfannenstiel incision clean/dry/intact. Steri strips in place. Rectal (female): Present deferred (female): Present deferred Extremities: Present normal inspection and full ROM; Absent calf tenderness Neuro: Present alert, awake, oriented x 3 and moves all extremities Assessment and Plan *Assessment and plan (1) 39 weeks gestation of : Status: Acute Category: Medical Code(s): Z3A.39 - 39 weeks gestation of (2) S/P : Status: Acute Category: Surgical Code(s): Z98.891 - History of uterine scar from previous surgery (3) History of : Status: Acute Category: Surgical Code(s): Z98.891 - History of uterine scar from previous surgery (4) Anemia affecting : Status: Acute Category: Medical Code(s): O99.019 - Anemia complicating , unspecified trimester (5) Morbid obesity with BMI of 40.0-44.9, adult: Status: Acute Category: Medical Code(s): E66.01 - Morbid (severe) obesity due to excess calories; Z68.41 - Body mass index [BMI] 40.0-44.9, adult (6) Tobacco use: Status: Acute Category: Social Hx Code(s): Z72.0 - Tobacco use (7) Asthma: Status: Acute Qualifiers: Asthma severity: unspecified severity Asthma persistence: unspecified Asthma complication type: unspecified Qualified Code(s): J45.909 - Unspecified asthma, uncomplicated Category: Medical Code(s): J45.909 - Unspecified asthma, uncomplicated (8) Anxiety: Status: Acute Category: Medical Code(s): F41.9 - Anxiety disorder, unspecified (9) Depression: Status: Acute Qualifiers: Depression Type: unspecified Qualified Code(s): F32.A - Depression, unspecified Category: Medical Code(s): F32.A - Depression, unspecified
[2022-11-21 07:43] VITALS: BP 141/57; PULSE 73; RESP 17; TEMP 36.8; O2SAT 97
[2022-11-21 16:10] VITALS: BP 123/59; PULSE 79; RESP 17; TEMP 36.7; O2SAT 97
[2022-11-21 20:12] VITALS: BP 120/58; PULSE 77; RESP 18; TEMP 36.8; O2SAT 98
[2022-11-22 04:00] VITALS: BP 122/56; PULSE 86; RESP 16; TEMP 36.7; O2SAT 97
--- NOTE | 2022-11-22 09:23 | EXP.DC.SUM ---
General Admission date:: 11/20/22 Discharge date: 11/22/22 HPI HPI HPI: POD # 2 s/p RLTCS Doing well. Pain controlled. She is bottle feeding. Light lochia. Voiding without difficulty and passing flatus. Tolerating regular diet. Denies fever/chills, chest pain and shortness of breath. No headaches, vision changes/dizziness. No swelling. Hospital Course Hospital Course Hospital Course: Ms Bernarda Domínguez is a 22 yo at 39w0d who presents to [facility] Labor and Delivery for scheduled repeat . History of x 1. Growth ultrasound 10/23/22 demonstrated EFW 93 %ile. She underwent a repeat low transverse section on 11/20/22. She delivered a baby boy (baby's name is Bib) weighing 9 lb 9 oz with APGARs 9, 9. EBL 700 mL. She is doing well /postoperatively. Pain controlled with PO medication. She received Venofer 200 mg IV x 1 dose on POD # 1 for acute blood loss anemia superimposed on anemia of . Bottle feeding. Light lochia. Vital signs stable, afebrile. Voiding without difficulty and passing flatus. Tolerating regular diet. Heart regular rate and rhythm. Lungs clear to auscultation bilaterally. Abdomen soft, appropriate mild tenderness to palpation. Incision clean/dry/intact. No lower extremity swelling. No calf pain to palpation. Normal hospital course. She was discharged to home on POD # 2. 11/20/22: Hgb 10.7, Hct 32.5 11/21/22: Hgb 10.0, Hct 30.5 Exam Data for Last 24 hours Vital signs and Labs for Last 24 Hours: Temp Pulse Resp BP Pulse Ox 98.1 F 86 16 122/56 L 97 11/22/22 04:00 11/22/22 04:00 11/22/22 04:00 11/22/22 04:00 11/22/22 04:00 I & O for Last 24 hours: Intake & Output 11/19/22 11/20/22 11/21/22 11/22/22 23:59 23:59 23:59 23:59 Intake Total 1000 / 1000 Output Total 650 / 650 Balance 350 / 350 Weight 281 lb Microbiology Reports for the Last 24 Hours: Microbiology 11/20/22 04:28 Urine,Clean Catch Urine Culture - Final NO GROWTH AFTER 48 HOURS 11/20/22 07:23 Urine,[place] Urine Culture - Preliminary NO GROWTH AFTER 24 HOURS Constitutional Constitutional: no acute distress and cooperative *Routine HEENT Exam Head: Present normocephalic and atraumatic Eye: Absent conjunctivae pink ENT: Present mucous membranes moist and dentition normal *Routine Neck Exam Neck: Present full ROM *Routine Respiratory Exam Respiratory: Present CTA bilaterally and normal respiratory effort *Routine Cardiovascular Exam Cardiovascular: Present RRR *Routine Abdominal Exam Abdominal: Present soft and normoactive bowel sounds; Absent tenderness or distended Comments: Uterine fundus firm and below umbilicus, Pfannenstiel incision clean/dry/intact. Steri strips in place. *Routine Rectal Exam Patient deferred: visual exam *Routine Exam Patient deferred: external exam *Routine Extremities Exam Extremities: Present full ROM; Absent edema or calf tenderness Routine Psychiatric Exam Psychiatric: Present normal affect and cooperative Results Data Completed and Pending Labs on day of discharge: Preliminary micro results at discharge 11/20/22 07:23 Urine Culture - Preliminary Urine,[place] NO GROWTH AFTER 24 HOURS DS: Diagnosis Discharge Diagnosis (1) 39 weeks gestation of : Status: Acute (2) S/P : Status: Acute (3) History of : Status: Acute (4) Anemia affecting : Status: Acute (5) Morbid obesity with BMI of 40.0-44.9, adult: Status: Acute (6) Tobacco use: Status: Acute (7) Asthma: Status: Acute (8) Anxiety: Status: Acute (9) Depression: Status: Acute (10) Acute blood loss anemia: Status: Acute Meds Home Medications and Allergies Home Medications Medication Instructions Recorded Confirmed Type ibuprofen 400 mg tablet 800 mg PO Q8H #40 tabs 02
--- NOTE | 2022-11-26 07:21 | P.PNANES_ITS ---
[facility] Anesthesia Record Part II Anesthesia Record Part II Discharge Time: 09:19 Destination: Obstetric PACU nurse assessment reviewed?: Yes Patient Condition:: Good Anesthesia Complications:: None Swallowing reflex intact?: Yes Cyanosis?: No Blood Pressure: 126/76 Pulse Rate: 61 Temperature: 97.5 F Mental Status: Alert & Oriented Pain level:: 0 Nausea and/or vomitting:: None Intake, IV Amount: 0
[2022-11-26 07:24] VITALS: BP 126/76; PULSE 61; TEMP 36.4
== END 2022-11-22 10:20 | disposition home or self-care (01) | DRG 787 ==
PROVIDERS: Admitting Provider Obstetrics & Gynecology; Visit Provider Obstetrics & Gynecology
PROC: 10D00Z1 Extraction of Products of Conception, Low, Open Approach (ICD-10-PCS; principal; 2022-11-20 07:30)
DX: O34.211 Maternal care for low transverse scar from previous cesarean delivery (principal); D62 Acute posthemorrhagic anemia; Z3A.39 39 weeks gestation of pregnancy; Z37.0 Single live birth; O99.214 Obesity complicating childbirth; Z23 Encounter for immunization; O99.334 Smoking (tobacco) complicating childbirth; F17.210 Nicotine dependence, cigarettes, uncomplicated; O99.344 Other mental disorders complicating childbirth; F41.9 Anxiety disorder, unspecified; F32.A Depression, unspecified; O99.02 Anemia complicating childbirth; O36.63X0 Maternal care for excessive fetal growth, third trimester, not applicable or unspecified
CPT/HCPCS: 59514; 59025; 80048; 80305; 81001; 82800; 82962; 85025; 86850; 87086; 94761; C9290; C9803; G0283; J2405; U0003; U0005

== ENCOUNTER 2022-11-26 20:28 | Emergency (ER) | payer OTHER, SELFPAY ==
[2022-11-26 20:30] VITALS: BP 115/60; PULSE 87; RESP 14; TEMP 36.7; O2SAT 100; BMI 36.5
--- NOTE | 2022-11-26 20:58 | HMH.EDSKAF ---
Discharge Plan Disposition Patient Disposition: Home, Self-Care Prescriptions Prescriptions: New fluconazole [Diflucan] 150 mg tablet 150 mg PO DAILY 10 Days Qty: 10 0RF No Action ibuprofen 400 mg Tablet 800 mg PO Q8H Qty: 40 0RF oxycodone 5 mg Tablet 5 mg PO Q4HP PRN (Reason: Moderate Pain) Qty: 15 0RF Referrals Follow up/Referrals: Provider,Referral, MD [Primary Care Provider] - See instructions Clinical Impressions Clinical Impression: Monilial rash Instructions Patient Instructions: DI for Yeast Infection-Skin Discharge ED Provider: Lisa (ED)Nghia Skin/Abscess/FB HPI General Chief complaint: Skin/Abscess/Foreign Body Stated complaint: C section 0207 possible infected Time Seen by Provider: 11/26/22 20:58 Mode of Arrival: Ambulatory Source of Information: Patient and Medical Record Limitations: No Limitations Description of Symptoms (Recalled from ER Triage Doc. by RN): pt states had a c section 11/20. yesterday pt noticed redness and drainage History of Present Illness HPI narrative: pt with csec on 11/20/22 and has reddness at incisional site - no odor or fever complaint: other (surg site ) Onset (ago): day(s) Severity: moderate Associated symptoms: fever Related Data Previous Rx's Medication Instructions Recorded ibuprofen 400 mg tablet 800 mg PO Q8H #40 tabs 11/22/22 oxycodone 5 mg tablet 5 mg PO Q4HP PRN Moderate Pain #15 11/22/22 tabs fluconazole 150 mg tablet 150 mg PO DAILY 10 days #10 tabs 11/26/22 (Diflucan) Allergies Allergy/AdvReac Type Severity Reaction Status Date / Time No Known Allergies Allergy Verified 11/14/22 15:05 [facility] Disclaimer: The information contained in this section may have been updated after the patient was seen, as this information can be updated by other users. Medical History (Updated 11/26/22 @ 21:08 by Nghia Gonzalez (ED)MD) 39 weeks gestation of Acute blood loss anemia Anemia affecting Asthma Atypical chest pain Heartburn History of endometrial biopsy LGA (large for gestational age) fetus Maternal obesity affecting , antepartum Screening for genetic disease carrier status Tobacco use affecting , antepartum Vasovagal syncope Surgical History (Updated 11/26/22 @ 00:05 by Az Christie) History of History of tonsillectomy S/P Family History Other No significant family history Social History (Updated 11/20/22 @ 07:23 by Rosalba Gallegos RN) Smoking Status: Current every day smoker tobacco type: cigarettes packs per day: 1 second hand exposure: Yes alcohol intake: never counseling provided: none substance use type: denies use current occupational status: employed Travel in the last 8 weeks: None household members: family housing: house 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 current occupational exposures/hazards: No caffeine: Yes do you feel safe at home: Yes victim of physical abuse: No victim of emotional abuse: No victim of sexual abuse: No ROS Obtained: Yes All systems reviewed & no additional complaints except as documented Physical Exam General General appearance: alert Head Head exam: normocephalic Eye Eye exam: Present PERRL and EOMI ENT ENT exam: Present mucous membranes moist Neck Neck exam: Present trachea midline Respiratory Respiratory exam: Absent respiratory distress Cardiovascular Cardiovascular exam: Present regular rate Abdominal Exam Abdominal exam: Present soft and other (surg site with reddness - think maybe yeast and will treat - doubt bacterial and surg site ok ) Extremities Exam Extremities exam: Present full ROM Neurological Exam Neurological exam: Present alert, oriented X3 and CN II-XII intact; Absent motor sensory deficit Psychiatric Psychiatric exam: Present normal affect Skin Skin exam: Present rash (see abo
[2022-11-26 20:59] VITALS: BP 115/60; PULSE 81; RESP 14; TEMP 36.7; O2SAT 100
== END 2022-11-26 21:13 | disposition home or self-care (01) ==
PROVIDERS: Emergency Provider Emergency Medicine
DX: B37.2 Candidiasis of skin and nail (principal); J45.909 Unspecified asthma, uncomplicated; F17.210 Nicotine dependence, cigarettes, uncomplicated
CPT/HCPCS: 99283; 99284

== ENCOUNTER 2023-04-26 13:55 | Emergency (ER) | payer OTHER, SELFPAY ==
[2023-04-26] VITALS (7 sets, daily range): BP systolic 104–145; BP diastolic 52–82; PULSE 64–117; RESP 16–20; TEMP 36.7–37; O2SAT 97–100; BMI 48.6; BMI 41.9
[2023-04-26 14:12] LABS: UTC Pregnancy Test, Urine Negative (Negative)
--- NOTE | 2023-04-26 14:25 | PC.NURSE ---
PATIENT SENT TO ER PER Brianna MCBRIDE RN FOR FURTHER EVALUATION. REPORT GIVEN TO Leida GARCIA RN. PATIENT AMBULATED TO ER WITH [facility] STAFF ASSIST AT THIS TIME.
--- NOTE | 2023-04-26 14:26 | EXP.UTC ---
Discharge Plan Disposition Patient Disposition: Home, Self-Care Condition: Fair Prescriptions Prescriptions: New naproxen 500 mg tablet 500 mg PO BID PRN (Reason: pain) Qty: 20 0RF ondansetron 4 mg tablet,disintegrating 4 mg PO Q8H PRN (Reason: Nausea) Qty: 15 0RF No Action levonorgestrel-ethinyl estrad [Aviane] 0.1-20 mg-mcg tablet 1 tab PO DAILY phentermine [Adipex-P] 37.5 mg tablet 37.5 mg PO DAILY Rx Instructions: must administer 30 minutes before or 1-2 hours after breakfast quetiapine 50 mg tablet extended release 24 hr 50 mg PO HS Patient Comments: TAKE 1 TABLET BY MOUTH AT BEDTIME Referrals Follow up/Referrals: Roxana Bryant PA [Primary Care Provider] - See instructions Activity Restrictions/Add. Instructions Additional Instructions/Restrictions: Return to the emergency department for worsening pain vomiting or any other concerns within the next 8 hours otherwise follow-up with your primary care physician and baker biscuit in the next few days Clinical Impressions Clinical Impression: Ovarian cyst Instructions Patient Instructions: DI for Acute Abdominal Pain Discharge ED Provider: Alessio Martino [facility] [place] <Maritza Jacobo APRN - Last Filed: 04/26/23 19:44> General Chief complaint: Abdominal Pain Stated complaint: Abd pain Mode of Arrival: Ambulatory Source of Information: Patient Limitations: No Limitations Time Seen by Provider: 04/26/23 14:00 Description of Symptoms (Recalled from Triage Doc. by RN): PATIENT C/O SHARP ABDOMINAL PAIN THAT STARTED THIS MORNING BUT HAS PROGRESSIVELY GOTTEN WORSE THROUGHOUT THE DAY. SHE STATES THE PAIN IS ALL OVER BUT WORSE IN RLQ. DENIES VOMITING AND DIARRHEA, BUT STATES SHE DOES HAVE NAUSEA. HEENT Symptoms (Recalled from RN notes): No Resp Symptoms (Recalled from RN notes): No Skin Symptoms (Recalled from RN notes): No MS Symptoms (Recalled from RN notes): No Functional Status (Recalled from RN notes): WNL History of Present Illness Provider Complaint: Pt reports that she noted abdominal pain this am that was all over but mainly around her belly button that has moved around to her right lower quadrant. She reports feeling nauseated. She denies diarrhea or fever. She states that the pain became so bad that she had to leave work. Related Data Home Medications Medication Instructions Recorded Confirmed levonorgestrel-ethinyl estradiol 1 tab PO DAILY Control 04/26/23 04/26/23 0.1 mg-20 mcg tablet (Aviane) phentermine 37.5 mg tablet 37.5 mg PO DAILY Weight Loss 04/26/23 04/26/23 (Adipex-P) quetiapine 50 mg tablet,extended 50 mg PO HS Depression 04/26/23 04/26/23 release 24 hr Previous Rx's Medication Instructions Recorded naproxen 500 mg tablet 500 mg PO BID PRN pain #20 tabs 04/26/23 ondansetron 4 mg disintegrating 4 mg PO Q8H PRN Nausea #15 tabs 04/26/23 tablet Allergies Allergy/AdvReac Type Severity Reaction Status Date / Time No Known Allergies Allergy Verified 03/18/23 14:17 Worker's Comp Is this a Worker's Comp case?: No [facility] <Maritza Jacobo APRN - Last Filed: 04/26/23 19:44> [facility] Disclaimer: The information contained in this section may have been updated after the patient was seen, as this information can be updated by other users. Medical History Acute blood loss anemia Anxiety Asthma Atypical chest pain Depression Heartburn History of endometrial biopsy Vasovagal syncope Surgical History History of History of tonsillectomy S/P Family History Other No significant family history Social History Smoking Status: Never smoker second hand exposure: Yes alcohol intake: never counseling provided: none sub
--- NOTE | 2023-04-26 14:36 | CT_ITS ---
FINAL REPORT TECHNIQUE: Postcontrast axial images through the abdomen and pelvis were performed. This study was performed with techniques to keep radiation doses as low as reasonably achievable, (ALARA). Individualized dose reduction techniques using automated exposure control or adjustment of mA and/or kV according to the patient's size were employed. CLINICAL HISTORY: RLQ pain COMPARISON: 10/18/2017 FINDINGS: Abdomen: There are multiple calcified granulomas in the lung bases. The liver is normal in size and attenuation. Numerous gallstones are identified. There is no evidence of biliary ductal dilatation. The spleen is unremarkable. The adrenals are normal. The pancreas is unremarkable. The kidneys enhance appropriately. The aorta is normal in caliber. No free fluid or adenopathy is identified. No findings for mechanical bowel obstruction are identified. Pelvis: The appendix is normal. The urinary bladder is unremarkable. There is a small amount of free fluid, may be physiologic or reactive. IMPRESSION: Cholelithiasis. Reviewed, Interpreted and Dictated by Kenny Lyons III, MD Transcribed by Madina Murguia Authenticated and [facility]
[2023-04-26 14:55] LABS: Basophils % 0.2 % (0.1-2.0); Eosinophils # 0.2 K/mm3 (0.0-0.4); Eosinophils % 1.5 % (0.1-12.0); Hematocrit 36.2 % (37.0-47.0); Hemoglobin 11.4 g/dL (12.2-16.2); Lymphocytes # 1.8 K/mm3 (0.7-4.5); Lymphocytes % 13.9 % (10-50); Mean Corpuscular HGB Conc 31.5 g/dL (31.8-35.4); Mean Corpuscular Hemoglobin 22.6 pg (27.0-31.2); Mean Corpuscular Volume 71.9 fl (81-99); Mean Platelet Volume 8.6 fl (7.4-10.4); Monocytes # 0.6 K/mm3 (0.1-1.0); Monocytes % 4.6 % (1.7-9.3); Neutrophils # 10.5 K/mm3 (1.8-7.8); Neutrophils % 79.8 % (37.0-80.0); Platelet Count 322 K/mm3 (142-424); Red Blood Count 5.03 M/mm3 (4.20-5.40); Red Cell Distribution Width 18.6 % (11.5-17.5); White Blood Count 13.1 K/mm3 (4.8-10.8)
[2023-04-26 15:00] LABS: Chloride 108 mmol/L (98-107); Potassium 3.3 mmoL/L (3.5-5.1); Sodium 140 mmol/L (136-145)
[2023-04-26 15:03] LABS: Alanine Aminotransferase 35 U/L (12-78); Albumin Level 4.4 g/dl (3.5-5.0); Albumin/Globulin Ratio 1.4 (1.1-1.8); Alkaline Phosphatase 102 U/L (38-126); Anion Gap 11.3 mEq/L (5-15); Aspartate Amino Transferase 35 U/L (14-36); Bilirubin,Total 0.5 mg/dl (0.2-1.3); Blood Urea Nitrogen 5 mg/dl (7-17); Calcium 9.3 mg/dl (8.4-10.2); Carbon Dioxide 24 mmol/L (22.0-30.0); Creatinine Clearance Estimated 104 mL/min (50-200); Estimated Glomerular Filt Rate 123 ml/min (>60); GFR (African American) 149 ML/MIN (>60); Globulin 3.2 g/dL (1.3-3.2); Glucose 79 mg/dl (74-100); Lipase 39 U/L (23-300); Total Protein,Serum 7.6 g/dl (6.3-8.2)
[2023-04-26 15:04] LABS: HCG Qualitative, Serum Negative (Negative)
[2023-04-26 15:22] LABS: Microscopic, Urine URINE MICROSCOPIC (MICROSCOPIC)
[2023-04-26 15:27] LABS: Appearance,Urine CLOUDY (Clear); Blood, Urine Negative (Negative); Color,Urine YELLOW (Yellow); Glucose,Urine (UA) Negative (Negative); Ketones,Urine TRACE (Negative); Leukocyte Esterase,Urine TRACE (Negative); Nitrate,Urine Negative (Negative); Protein,Urine 1+ (Negative); Specific Gravity, Urine >= 1.030 (1.005-1.030)
--- NOTE | 2023-04-26 15:28 | PC.NURSE ---
PATIENT TO CT
[2023-04-26 15:44] LABS: Bilirubin,Urine 2+ (Negative)
[2023-04-26 15:47] LABS: Bacteria,Urine 2+ /lpf; WBC,Urine Occasional #/hpf (0-3)
--- NOTE | 2023-04-26 17:04 | US_ITS ---
PROCEDURE INFORMATION: Exam: US Pelvis, Transvaginal Exam date and time: 04/26/2023 5:31 PM Age: 22 years old Clinical indication: Pelvic pain; Additional info: Ovarian torsion TECHNIQUE: Imaging protocol: Real-time transvaginal pelvic ultrasound with image documentation. Transvaginal imaging was used for better evaluation of the endometrium, adnexa, and/or cervix. COMPARISON: US OB FOLLOW UP 10/23/2022 1:11 PM FINDINGS: Uterus: The uterus measures 8.8 x 4.4 x 5.8 cm. No focal myometrial lesions. Endometrium measures 4.8 mm. Right ovary/adnexa: Right ovary measures 4.5 x 2.4 x 2.9 cm (17.5 mL). Ovarian stroma is unremarkable. There is normal arterial inflow and venous outflow. Left ovary/adnexa: Left ovary measures 3.5 x 1.6 x 2.4 cm (7.4 mL). Ovarian stroma is unremarkable. There is normal arterial inflow and venous outflow. Intraperitoneal space: Mild amount of pelvic free fluid IMPRESSION: Unremarkable evaluation of the uterus and adnexa. No sonographic evidence of ovarian torsion
--- NOTE | 2023-04-26 17:05 | PC.NURSE ---
Ultrasound paged to come in
--- NOTE | 2023-04-26 17:32 | PC.NURSE ---
pt to US via wheelchair
--- NOTE | 2023-04-26 18:11 | PC.NURSE ---
Dr. Martino at [facility]
== END 2023-04-26 18:21 | disposition home or self-care (01) ==
LOC: UTC 13:56 → ER 14:26
PROVIDERS: Nurse Practitioner Family; Emergency Provider Emergency Medicine; PCP Physician Assistant
DX: N83.209 Unspecified ovarian cyst, unspecified side (principal); R10.31 Right lower quadrant pain; F41.9 Anxiety disorder, unspecified; F32.A Depression, unspecified; J45.909 Unspecified asthma, uncomplicated
CPT/HCPCS: 74177; 76830; 80053; 81001; 81025; 83690; 84703; 85025; 87086; 96360; 99284; 99285; Q9967

== ENCOUNTER → 2023-08-07 10:25 | Outpatient (CLI) | payer OTHER, SELFPAY ==
[2023-08-07 11:42] LABS: HCG,Quantitative 61 mIU/ml (0-5.42)
[2023-08-08 11:56] LABS: Progesterone 10.6 ng/mL (.)
== END ==
PROVIDERS: PCP Emergency Medicine; Visit Provider Obstetrics & Gynecology
DX: N92.6 Irregular menstruation, unspecified (principal); Z32.00 Encounter for pregnancy test, result unknown
CPT/HCPCS: 36415; 84144; 84702

== ENCOUNTER → 2023-08-09 11:35 | Outpatient (CLI) | payer OTHER, SELFPAY ==
[2023-08-09 13:53] LABS: HCG,Quantitative 163 mIU/ml (0-5.42)
== END ==
PROVIDERS: PCP Physician Assistant; Visit Provider Obstetrics & Gynecology
DX: N92.6 Irregular menstruation, unspecified (principal); Z32.00 Encounter for pregnancy test, result unknown
CPT/HCPCS: 36415; 84702

== ENCOUNTER → 2023-09-09 15:59 | Outpatient (CLI) | payer OTHER, SELFPAY ==
[2023-09-09 17:24] LABS: Basophils % 0.2 % (0.1-2.0); Eosinophils # 0.1 K/mm3 (0.0-0.4); Eosinophils % 0.8 % (0.1-12.0); Hematocrit 40.3 % (37.0-47.0); Hemoglobin 13.2 g/dL (12.2-16.2); Lymphocytes # 2.3 K/mm3 (0.7-4.5); Lymphocytes % 20.4 % (10-50); Mean Corpuscular HGB Conc 32.8 g/dL (31.8-35.4); Mean Corpuscular Hemoglobin 26.8 pg (27.0-31.2); Mean Corpuscular Volume 81.8 fl (81-99); Mean Platelet Volume 8.8 fl (7.4-10.4); Monocytes # 0.5 K/mm3 (0.1-1.0); Monocytes % 4.2 % (1.7-9.3); Neutrophils # 8.3 K/mm3 (1.8-7.8); Neutrophils % 74.4 % (37.0-80.0); Platelet Count 336 K/mm3 (142-424); Red Blood Count 4.93 M/mm3 (4.20-5.40); Red Cell Distribution Width 16.7 % (11.5-17.5); White Blood Count 11.1 K/mm3 (4.8-10.8)
[2023-09-11 09:13] LABS: Rubella Antibodies, IgG 3.04 index (Immune >0.99)
[2023-09-11 12:49] LABS: HIV Screen 4th Generation wRfx Non Reactive (Non Reactive)
[2023-09-11 13:43] LABS: Rapid Plasma Reagin Ab Titer Non Reactive titer (NonRea<1:1)
[2023-09-11 20:51] LABS: Hepatitis B Surface Antigen Negative
[2023-09-11 20:52] LABS: Hepatitis C Antibody Non Reactive
== END ==
PROVIDERS: PCP Physician Assistant; Visit Provider Obstetrics & Gynecology
DX: Z34.91 Encounter for supervision of normal pregnancy, unspecified, first trimester (principal); Z3A.09 9 weeks gestation of pregnancy
CPT/HCPCS: 36415; 85025; 86593; 86703; 86762; 86850; 87340; 87380; G0432

== ENCOUNTER → 2023-10-10 20:54 | Outpatient (CLI) | payer OTHER, SELFPAY | LOC: LAB.DROPOF 20:55 | PROVIDERS: PCP Obstetrics & Gynecology; Visit Provider Obstetrics & Gynecology | DX: Z34.91 Encounter for supervision of normal pregnancy, unspecified, first trimester (principal); Z3A.13 13 weeks gestation of pregnancy | CPT/HCPCS: 87086 ==

== ENCOUNTER 2023-10-16 07:37 | Outpatient (CLI) | payer OTHER, SELFPAY ==
--- NOTE | 2023-10-16 07:37 | US_ITS ---
PROCEDURE: US OB FOLLOW UP CLINICAL INDICATION: bleeding in early COMPARISON: None FINDINGS: Transabdominal sonographic images of the pelvis were obtained. The following parameters are obtained: From her established due date she is 14weeks 3days Viable fetus in the breech presentation with a posterior placenta grade 1. Transvaginally the placenta looks adjacent to the internal os. A small collection of ground-glass fluid is present at the internal cervical os, possibly blood. The cervix measures 4.5 cm. heart rate: 149bpm bpm. BPD: 14weeks 3days OFD: 14weeks 2days HC: 14weeks 2days AC: 14weeks 3days FL: 14weeks 2days HC/AC: 1.15 Cephalic index: 0.77 FL/BPD: 0.56 FL/AC: 0.18 Amniotic fluid appears normal. IMPRESSION: 1. Viable fetus in the breech presentation with a posterior placenta grade 1. 2. The placenta appears to be adjacent to the internal cervical os and there is a small collection of ground-glass fluid possibly blood. 3. Suggest a repeat transvaginal view at that 20 week anatomical scan. 4. The fluid is within normal limits. 5. The fetus is active. 6. biometry is consistent with a dates. Dictated by: Olvin Quispe MD 10/16/2023 13:55 Olvin Quispe MD in OV 10/16/2023 13:55
== END 2023-10-16 23:59 ==
LOC: RAD 07:37
PROVIDERS: PCP Physician Assistant; Visit Provider Obstetrics & Gynecology
DX: O20.9 Hemorrhage in early pregnancy, unspecified (principal)
CPT/HCPCS: 76816

== ENCOUNTER 2023-10-29 16:27 | Emergency (ER) | payer OTHER, SELFPAY ==
[2023-10-29 16:40] VITALS: BP 107/60; PULSE 99; RESP 20; TEMP 37.1; O2SAT 98; BMI 37.4
--- NOTE | 2023-10-29 16:51 | ED_ITS ---
Discharge Plan Disposition Patient Disposition: Home, Self-Care Condition: Good Prescriptions Prescriptions: No Action Classic 28 mg iron- 800 mcg tablet PO DAILY promethazine 12.5 mg tablet 12.5 mg PO Q6H PRN (Reason: nausea and vomiting) Qty: 20 1RF famotidine [Pepcid] 20 mg tablet 20 mg PO BID Qty: 60 4RF Referrals Follow up/Referrals: Roxana Bryant PA [Primary Care Provider] - See instructions Activity Restrictions/Add. Instructions Additional Instructions/Restrictions: *Monitor Temp, Over the counter Motrin or Tylenol as directed/as needed Tylenol every 4 hours and Motrin every 6 hours (as long as your family doctor has told you that you can take it) for fever or pain. and straight to ER if unable to lower temp less than 101.0 after medication given *Warm salt water gargles may help to soothe the throat *Throat Lozenges? *Warm fluids like tea with honey may help to soothe the throat? *Sleep elevated *Humidifier/Vaporizer *Flonase 2 sprays in each nostril daily but be aware that it may take 2-3 days before you notice improvement *Bromfed may cause drowsiness. Know how it effects you (your child) before driving, caring for small child, or sending your child to school. Not other antihistamines/allergy medications while taking bromfed Your throat swab was sent for culture. Those results are typically sent to your primary care. Be sure to follow up in 2-3 days with your family doctor/primary care physician if no improvement so they can review those result and treat if necessary. If you don?t have a primary care doctor, I recommend you get one but in the mean time, you will have to return to a walk in clinic Follow up IMMEDIATELY for new or worsening symptoms or no Noticeable improvement over the next 48-72 hours. 911 for difficulty breathing or swallowing You were tested for today for Upper Respiratory Panel with COVID19 your test result should be back in the next 24hours, you may check your results on the [facility] [employer] [facility] if you are positive for COVID you must Quarantine for 5 days Clinical Impressions Clinical Impression: Viral syndrome Instructions Patient Instructions: DI for Viral Syndrome Discharge ED Provider: Munira Shultz [facility] [place] HPI General Stated complaint: sore throat, cough ear ache Mode of Arrival: Ambulatory Source of Information: Patient Limitations: No Limitations Time Seen by Provider: 10/29/23 16:51 Description of Symptoms (Recalled from Triage Doc. by RN): PATIENT C/O SORE THROAT, EAR PAIN, BODY ACHES, CHILLS AND HEADACHE SINCE SATURDAY HEENT Symptoms (Recalled from RN notes): Yes Resp Symptoms (Recalled from RN notes): No Skin Symptoms (Recalled from RN notes): No MS Symptoms (Recalled from RN notes): No Functional Status (Recalled from RN notes): WNL History of Present Illness Provider Complaint: Patient states that she is 16wks OB states that she started feeling bad on Saturday with chills, body aches, sore throat, ear pain and headache States that today she was still not feeling well so she came in to get checked worried she may have strep or flu Related Data Home Medications Medication Instructions Recorded Confirmed vits no.126-ferrous fum tab PO DAILY 09/09/23 10/10/23 28 mg iron-folic acid 800 mcg tablet (Classic ) Previous Rx's Medication Instructions Recorded promethazine 12.5 mg tablet 12.5 mg PO Q6H PRN nausea and 09/09/23 vomiting #20 tabs famotidine 20 mg tablet (Pepcid) 20 mg PO BID #60 tabs 10/10/23 Allergies Allergy/AdvReac Type Severity Reaction Status Date / Time No Known Allergies Allergy Verified 10/10/23 15:51 Worker's Comp Is this a Worker's Comp case?: No [facility] Disclaimer: The information contained in this section may have been updated after the patient was seen, as this information can be updated by other users. Medical History Acute blood loss anemia Anxiety ASCUS with positive high risk HPV cervical Asthma Atypical chest pain Depression Heartburn History of endometrial biopsy Ovarian cyst Screening for genetic disease carrier status 05/29/22 - [employer] carrier screen negative for 14 conditions tested including CF, Fragile X and SMA Vaginal bleeding affecting early Vasovagal syncope Surgical History History of History of tonsillectomy S/P Family History Other No significant family history Social History Smoking Status: Current every day smoker tobacco type: cigarettes packs per day: 1 second hand exposure: Yes alcohol intake: never counseling provided: none substance use type: former substance user and marijuana current occupational status: employed Travel in the last 8 weeks: None household members: family housing: house 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 current occupational exposures/hazards: No caffeine: Yes do you feel safe at home: Yes victim of physical abuse: No victim of emotional abuse: No victim of sexual abuse: No ROS Obtained: Yes All systems reviewed & no additional complaints except as documented and Yes Systems reviewed as appropriate & no additional complaints except as documented Constitutional Constitutional: Reports system reviewed and no additional complaints, except as documented, Reports as per HPI, Reports body ache, Reports chills and Reports headache(s) ENT Ears, Nose, Mouth, and Throat: Reports system reviewed and no additional complaints, except as documented, Reports as per HPI, Reports otalgia, Reports headache(s), Reports nasal congestion and Reports sore throat Cardiovascular Cardiovascular: Reports system reviewed and no additional complaints, except as documented and Reports as per HPI Respiratory Respiratory: Reports system reviewed and no additional complaints, except as documented and Reports as per HPI Gastrointestinal Gastrointestingal: Reports system reviewed and no additional complaints, except as documented and as per HPI Neurologic Neurologic: Reports headache(s) Physical Exam General General appearance: alert and in no apparent distress ENT ENT exam: Present mucous membranes moist and TM's normal bilaterally Expanded ENT Exam Nose exam: Absent sinus tenderness Throat exam: Present other (Pharyngeal erythema noted ) Respiratory Respiratory exam: Present normal lung sounds bilaterally; Absent respiratory distress or wheezes Cardiovascular Cardiovascular exam: Present regular rate, normal rhythm and normal heart sounds Neurological Exam Neurological exam: Present alert, oriented X3 and normal gait Medical Decision Making Sandip Inquiry Pt receiving controlled substance: No Sandip was queried for this patient: No Vital Signs: 10/29/23 16:40 Temperature 98.8 F Temperature Source Oral Pulse Rate [Left Brachial] 99 H Respiratory Rate 20 Blood Pressure [Left Arm] 107/60 L Blood Pressure Mean [Left Arm] 75 Blood Pressure Source [Left Arm] Automatic Cuff Blood Pressure Position [Left Arm] Sitting 02 Sat by Pulse Oximetry 98 Oxygen Delivery Method Room Air Lab Data Lab results reviewed: Yes I reviewed the patient's lab results.
[2023-10-29 16:56] LABS: UTC Strep Screen (Rapid) Negative (Negative)
[2023-10-29 16:57] LABS: UTC Influenza A Antigen Negative (Negative); UTC Influenza B Antigen Negative (Negative)
[2023-10-29 16:58] VITALS: BP 107/60; PULSE 99; RESP 20; TEMP 37.1; O2SAT 98
[2023-10-29 19:50] LABS: Adenovirus,PCR Not Detected (NotDetected); Coronavirus 19, PCR Not Detected (NotDetected); Coronavirus 229E Not Detected (NotDetected); Coronavirus NL63 Not Detected (NotDetected); Coronavirus OC43 Not Detected (NotDetected); Coronovirus HKU1,PCR Not Detected (NotDetected); Human Metapneumovirus Not Detected (NotDetected); Influenza A, PCR Not Detected (NotDetected); Influenza AH1, 2009 Not Detected (NotDetected); Influenza AH1, PCR Not Detected (NotDetected); Influenza AH3,PCR Not Detected (NotDetected); Influenza B, PCR Not Detected (NotDetected); Parainfluenza 1, PCR Not Detected (NotDetected); Parainfluenza 2, PCR Not Detected (NotDetected); Parainfluenza 3, PCR Not Detected (NotDetected); Parainfluenza 4, PCR Not Detected (NotDetected); Respiratory Syncytial Virus Not Detected (NotDetected); Rhinovirus/Enterovirus Not Detected (NotDetected)
== END 2023-10-29 17:07 | disposition home or self-care (01) ==
PROVIDERS: Emergency Provider Nurse Practitioner; PCP Physician Assistant
DX: O26.892 Other specified pregnancy related conditions, second trimester (principal); R51.9 Headache, unspecified; R07.0 Pain in throat; H92.03 Otalgia, bilateral; R09.81 Nasal congestion; M79.18 Myalgia, other site; B34.9 Viral infection, unspecified; Z3A.16 16 weeks gestation of pregnancy; O99.332 Smoking (tobacco) complicating pregnancy, second trimester; F17.210 Nicotine dependence, cigarettes, uncomplicated
CPT/HCPCS: 87581; 87632; 87635; 87798; 87804; 87880; 99212; 99213; G0463

== ENCOUNTER 2023-11-14 12:51 | Outpatient (CLI) | payer OTHER, SELFPAY ==
--- NOTE | 2023-11-14 12:52 | US_ITS ---
PROCEDURE: US OB /MATERNAL DETAIL CLINICAL INDICATION: anatomy scan/ and tv scan to evaluate placenta pos COMPARISON: No exams were available for comparison FINDINGS: Transabdominal sonographic images of the pelvis were obtained. From her established due date she is 18 weeks 4 days. Single viable intrauterine gestation. Cephalic position. Placenta: Posteriorplacenta grade 1. The placenta is 6 cm away from the cervix. There is an average amount of fluid. The cervix appears satisfactory. Closed and measuring 3.48 cm in length. Complete survey performed and was unremarkable on the submitted images as in PACS. No discrete anomalies identified on survey imaging by technologist. Active fetus. Three-vessel cord with satisfactory umbilical cord insertion. 4- chamber heart noted. Situs, aortic arch, LVOT, RVOT, appear normal. Survey of brain & ventricles Unremarkable. Cerebellum, thalamus, choroid plexus, cisterna magna appear normal. Face and neck survey unremarkable. Profile, nasion, lips and nose appeared normal. Diaphragm and chest views unremarkable. Abdomen: Both kidneys noted and unremarkable. Stomach and bladder noted and satisfactory. Spine: Survey of the spine satisfactory with no anomalies identified nor imaged. Cervical, thoracic, lower spine appear normal. Both arms and legs noted. Amniotic Fluid: Adequate. Measurements: Average ultrasound age 18weeks 5days. Estimated due date by ultrasound age 0604/11/2024. Estimated weight 245g BPD = 18weeks 5days HC = 18weeks 5days AC = 18weeks 4days FL = 18weeks 4days Growth Percentile= 43 Heart Rate = 144bpm Cerebellum = 18weeks 3days Humerus = 18weeks HC/AC is 1.22 FL/BPD is 0.66 FL/AC is 0.21 IMPRESSION: 1. Viable fetus in the cephalic presentation with posterior placenta grade 1. 2. The fluid is within normal limits. 3. Anatomical scan appears normal. 4. biometry is consistent with a dates. Dictated by: Olvin Quispe MD 11/14/2023 14:41 Olvin Quispe MD in [facility] 11/14/2023 14:41
== END 2023-11-14 23:59 ==
LOC: RAD 12:52
PROVIDERS: PCP Physician Assistant; Visit Provider Obstetrics & Gynecology
DX: Z36.89 Encounter for other specified antenatal screening; Z3A.20 20 weeks gestation of pregnancy
CPT/HCPCS: 76811

== ENCOUNTER 2024-01-20 07:48 | Outpatient (CLI) | payer OTHER, SELFPAY ==
[2024-01-20 08:05] LABS: Basophils # 0.1 K/mm3 (0-0.2); Basophils % 0.5 % (0.1-2.0); Eosinophils # 0.1 K/mm3 (0.0-0.4); Eosinophils % 0.7 % (0.1-12.0); Hematocrit 34.8 % (37.0-47.0); Hemoglobin 11.2 g/dL (12.2-16.2); Lymphocytes # 2.3 K/mm3 (0.7-4.5); Lymphocytes % 17.4 % (10-50); Mean Corpuscular HGB Conc 32.3 g/dL (31.8-35.4); Mean Corpuscular Hemoglobin 27.6 pg (27.0-31.2); Mean Corpuscular Volume 85.4 fl (81-99); Mean Platelet Volume 8.8 fl (7.4-10.4); Monocytes # 0.6 K/mm3 (0.1-1.0); Monocytes % 4.4 % (1.7-9.3); Neutrophils # 10.3 K/mm3 (1.8-7.8); Platelet Count 369 K/mm3 (142-424); Red Blood Count 4.07 M/mm3 (4.20-5.40); Red Cell Distribution Width 16.5 % (11.5-17.5); White Blood Count 13.4 K/mm3 (4.8-10.8)
[2024-01-20 08:22] LABS: Glucose,Fasting 114 mg/dl (74-100)
[2024-01-20 09:52] LABS: Glucose 1 Hour 159 mg/dL (74-100)
== END 2024-01-20 23:59 ==
LOC: LAB 07:48
PROVIDERS: PCP Physician Assistant; Visit Provider Obstetrics & Gynecology
DX: O26.893 Other specified pregnancy related conditions, third trimester (principal); Z3A.28 28 weeks gestation of pregnancy
CPT/HCPCS: 36415; 82951; 85025

== ENCOUNTER 2024-02-04 08:26 | Outpatient (CLI) | payer OTHER, SELFPAY ==
[2024-02-04 08:58] LABS: Glucose,Fasting 107 mg/dl (74-100)
[2024-02-04 10:11] LABS: Glucose 1 Hour 157 mg/dL (74-100)
[2024-02-04 11:11] LABS: Glucose 2 Hour 115 mg/dL (74-100)
[2024-02-04 12:05] LABS: Glucose 3 Hour 124 mg/dL (74-100)
== END 2024-02-04 23:59 | disposition home or self-care (01) ==
LOC: LAB 08:27
PROVIDERS: PCP Physician Assistant; Visit Provider Obstetrics & Gynecology
DX: O26.893 Other specified pregnancy related conditions, third trimester (principal); Z3A.30 30 weeks gestation of pregnancy
CPT/HCPCS: 36415; 82951

== ENCOUNTER 2024-02-06 12:40 | Outpatient (CLI) | payer OTHER, SELFPAY ==
--- NOTE | 2024-02-06 12:40 | US_ITS ---
PROCEDURE: US OB FOLLOW UP CLINICAL INDICATION: OB Growth US with ROWAN COMPARISON: US US OB FOLLOW UP from 10/16/2023 US US OB /MATERNAL DETAIL from 11/14/2023 FINDINGS: Transabdominal sonographic images of the pelvis were obtained. The following parameters are obtained: From her established due date she is 30weeks 4days Viable fetus in the breech presentation with a posterior placenta grade 2. The cervix measures 5.35 cm. heart rate: 115bpm bpm. BPD: 32weeks 2days, 84 percentile HC: 31weeks 6days, 47 percentile AC: 32weeks 1day, 86 percentile FL: 29weeks 4days, 12 percentile HC/AC: 1.03 FL/BPD: 0.7 FL/AC: 0.2 Growth percentile: 62 Amniotic fluid index: 12.01cm, MVP 5.20 cm. No obvious anomalies evident. profile seen, nasion, bladder, kidneys, three-vessel cord, four chamber heart appear normal. IMPRESSION: 1. Viable fetus in the breech presentation with a posterior placenta grade 2. 2. The fluid is within normal limits with an amniotic fluid index of 12.01 cm, MVP 5.20 cm. 3. There has been good interval growth with the fetus currently 62nd percentile. 4. Limited anatomical scan appears normal. Dictated by: Olvin Quispe MD 02/07/2024 08:34 Olvin Quispe MD in [facility] 02/07/2024 08:34
== END 2024-02-06 23:59 | disposition home or self-care (01) ==
LOC: RAD 12:40
PROVIDERS: PCP Physician Assistant; Visit Provider Obstetrics & Gynecology
DX: O26.893 Other specified pregnancy related conditions, third trimester (principal); Z3A.30 30 weeks gestation of pregnancy
CPT/HCPCS: 76816

== ENCOUNTER 2024-02-18 10:28 | Outpatient (CLI) | payer OTHER, SELFPAY ==
--- NOTE | 2024-02-18 10:29 | US_ITS ---
PROCEDURE: US OB BIOPHYSICAL PROFILE CLINICAL INDICATION: bpp with ROWAN For LGA COMPARISON: US US OB /MATERNAL DETAIL from 11/14/2023 US US OB FOLLOW UP from 02/06/2024 FINDINGS: Transabdominal sonographic images of the uterus were obtained. From her established due date she is 33weeks 1day. The following parameters are obtained: Viable Fetus in the cephalic presentation with a posterior fundal placenta grade 2. The cervix measures 3.7 cm. Measurements: heart Rate = 127bpm Amniotic fluid index: 10.67cm, MVP 3.68 cm Qualitative AFV:2 Breathing movements: 2 Gross Body Movements: 2 Tone: 2 Biophysical profile score: 8 No obvious anomalies evident.Kidneys, profile, four-chamber heart, three-vessel cord appear normal. IMPRESSION: 1. Viable fetus in the cephalic presentation with a posterior fundal placenta grade 2. 2. The fluid is within normal limits with an amniotic fluid index of 10.67 cm, MVP 3.68 cm. 3. Biophysical profile is 8/8 with good breathing movement and movement seen. 4. Limited anatomical scan appears normal. Dictated by: Olvin Quispe MD 02/18/2024 11:46 Olvin Quispe MD in [facility] 02/18/2024 11:46
== END 2024-02-18 23:59 | disposition home or self-care (01) ==
LOC: RAD 10:29
PROVIDERS: PCP Physician Assistant; Visit Provider Obstetrics & Gynecology
DX: O26.893 Other specified pregnancy related conditions, third trimester (principal); Z3A.33 33 weeks gestation of pregnancy
CPT/HCPCS: 76819

== ENCOUNTER 2024-03-09 13:21 | Outpatient (CLI) | payer OTHER, SELFPAY ==
[2024-03-09 13:50] VITALS: BMI 40.6
[2024-03-09 13:56] LABS: Microscopic, Urine URINE MICROSCOPIC (MICROSCOPIC)
[2024-03-09 14:04] LABS: Bilirubin,Urine Negative (Negative); Blood, Urine Negative (Negative); Color,Urine YELLOW (Yellow); Glucose,Urine (UA) Negative (Negative); Ketones,Urine Negative (Negative); Leukocyte Esterase,Urine 1+ (Negative); Nitrate,Urine Negative (Negative); Protein,Urine Negative (Negative); Urobilinogen,Urine 0.2 EU/dl (0.2)
[2024-03-09 14:05] LABS: Appearance,Urine Slightly Cloudy (Clear)
[2024-03-09 14:12] LABS: Amphetamine/Metha Screen,Urine Negative ng/ml (<1000)
[2024-03-09 14:13] VITALS: BMI 40.6
[2024-03-09 14:13] LABS: Barbiturates Screen,Urine Negative ng/ml (<200); Benzodiazepines Screen,Urine Negative ng/ml (<200)
[2024-03-09 14:14] LABS: Cannabinoid Screen,Urine Negative ng/ml (<50); Cocaine Screen,Urine Negative ng/ml (<300)
[2024-03-09 14:15] LABS: Methadone Screen,Urine Negative ng/ml (<300)
[2024-03-09 14:16] LABS: Opiate Screen,Urine Negative ng/ml (<300); Phencyclidine Screen,Urine Negative ng/ml (<25)
[2024-03-09 14:44] LABS: Bacteria,Urine 1+ /lpf
[2024-03-09 14:45] LABS: Amorphous Sediment,Urine 1+ /lpf
== END 2024-03-09 15:40 | disposition home or self-care (01) ==
LOC: OBOUT 13:23 → OB 13:24
PROVIDERS: PCP Physician Assistant; Visit Provider Nurse Practitioner Obstetrics & Gynecology
DX: O26.893 Other specified pregnancy related conditions, third trimester (principal); Z3A.36 36 weeks gestation of pregnancy; R10.9 Unspecified abdominal pain; M54.50 Low back pain, unspecified; R51.9 Headache, unspecified
CPT/HCPCS: 80307; 81001; 87086; 87088; 87186; G0463

== ENCOUNTER 2024-04-01 12:44 | Inpatient (IN) | payer OTHER, SELFPAY ==
[2024-04-01] VITALS (8 sets, daily range): BP systolic 96–117; BP diastolic 56–68; PULSE 61–116; RESP 14–20; TEMP 36.6–36.8; O2SAT 97–98; BMI 40.3; BMI 40.7
--- NOTE | 2024-04-01 12:22 | EXP.HP ---
History of Present Illness *Admission Date: 04/01/24 *Reason for visit:: Labor *History of present illness: Bernarda Domínguez is a 23yo -0-0-1 who presented to labor and delivery at 38 weeks and 3 days gestation with regular painful contractions. She was noted to have made cervical change from her previous exam. She continued to have regular painful contractions and decision was made to proceed with a repeat delivery. The patient declines tubal ligation. She last ate at 8:00 this morning. Her has been complicated by vaginal bleeding early in with a previa that resolved, tobacco use, obesity, anxiety, depression, and anemia. On presentation the patient endorsed good movement, denies any leakage of fluid or vaginal bleeding. Endorsed regular painful contractions A+, antibody negative, rubella immune, hepatitis B negative, hepatitis C negative, RPR negative, HIV negative 1 hour GTT: 159 3-hour GTT: 107/157/115/124, passed GBS unknown PFSH PFSH Disclaimer: The information contained in this section may have been updated after the patient was seen, as this information can be updated by other users. Medical History Vaginal bleeding affecting early Ovarian cyst Acute blood loss anemia Vasovagal syncope Asthma Heartburn History of endometrial biopsy Screening for genetic disease carrier status 05/29/22 - [employer] carrier screen negative for 14 conditions tested including CF, Fragile X and SMA ASCUS with positive high risk HPV cervical Depression Anxiety Atypical chest pain Surgical History History of tonsillectomy History of Family History Other No significant family history Social History (Updated 04/01/24 @ 13:59 by Kathy Glynn RN) Smoking Status: Current every day smoker tobacco type: cigarettes packs per day: 1 second hand exposure: Yes alcohol intake: never counseling provided: none substance use type: former substance user and marijuana current occupational status: unemployed Travel in the last 8 weeks: None household members: family housing: house 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: No caffeine: Yes do you feel safe at home: Yes victim of physical abuse: No victim of emotional abuse: No victim of sexual abuse: No Review of Systems Review of Systems Review of systems (narrative): Review of Systems Constitutional: Denies fever, chills, and sweats Eyes: Denies vision change/ pain Respiratory: Denies cough and shortness of breath Cardiovascular: Denies chest pain and lightheadedness Gastrointestinal: Admits abdominal pain with contractions. Denies nausea, vomiting. Genitourinary: Denies dysuria and incontinence Musculoskeletal: Denies shoulder pain and back pain Neurological: Denies change in speech or headaches Meds Home Medications and Allergies Home Medications Medication Instructions Recorded Confirmed Type vits no.126-ferrous fum 1 tab PO DAILY 09/09/23 04/01/24 History 28 mg iron-folic acid 800 mcg tablet (Classic ) pantoprazole 40 mg tablet,delayed 40 mg PO DAILY #30 tabs 01/21/24 04/01/24 Rx release (Protonix) ondansetron 4 mg disintegrating 4 mg PO Q6HP PRN nausea and 04/01/24 04/01/24 History tablet vomiting New Prescriptions to Start Prescriptions: Allergies Allergy/AdvReac Type Severity Reaction Status Date / Time No Known Allergies Allergy Verified 03/31/24 13:58 Exam Data for Last 24 hours I & O for Last 24 hours: Intake & Output 03/29/24 03/30/24 03/31/24 04/01/24 23:59 23:59 23:59 23:59 Weight 250 lb Narrative: General: patient is alert oriented in no acute distress and responds appropriately to questions. HEENT: NCAT, EOMI, moist mucous membranes, neck supple with full ROM Cardiovascular: RRR +S1/S2, no murmurs or rubs Pulmonary: Clear to auscultation bilaterally, nonlabored breathing, symmetric chest rise Abdominal: Gravid abdomen appropriate for gestation. No guarding, rebound, or tenderness noted. SVE: 2/50/-3, previously closed Extremities: trace edema, no tenderness or cyanosis noted Skin: Normal turgor, intact, warm. Negative for erythema, pallor, petechia, or lesions Neurologic: Negative for sensory or motor deficit Psychiatric: Normal affect, normal thought process, good judgment and insight, no depression or anxious mood appreciated. *Routine HEENT Exam Head: Present normocephalic and atraumatic Eye: Present EOMI, PERRL and normal accommodation; Absent conjunctival icterus, scleral injection, nystagmus or exophthalmos ENT: Present mucous membranes moist *Routine Respiratory Exam Respiratory: Present CTA bilaterally, normal respiratory effort, able to speak in complete sentences and symmetric chest movement; Absent accessory muscle use, decreased breath sounds, rales, respiratory distress, wheezes, distant breath sounds or diminished air movement *Routine Cardiovascular Exam Cardiovascular: Present RRR, Normal S1 and Normal S2; Absent murmur or gallop *Routine Abdominal Exam Abdominal: Present soft and normoactive bowel sounds; Absent tenderness, distended, rebound or guarding *Routine Rectal Exam Rectal:: deferred *Routine Genitalia Exam Genitalia:: normal female Assessment and Plan *Assessment and plan (1) Screening for genetic disease carrier status: Problem Comment: 05/29/22 - [facility] carrier screen negative for 14 conditions tested including CF, Fragile X and SMA Status: Acute Category: Medical Code(s): Z13.71 - Encounter for nonprocreative screening for genetic disease carrier status (2) Tobacco use affecting , antepartum: Status: Chronic Category: Medical Code(s): O99.330 - Smoking (tobacco) complicating , unspecified trimester (3) Maternal obesity affecting , antepartum: Status: Acute Category: Medical Code(s): O99.210 - Obesity complicating , unspecified trimester (4) History of : Status: Chronic Category: Surgical Code(s): Z98.891 - History of uterine scar from previous surgery (5) : Status: Acute Category: Medical Code(s): Z34.90 - Encounter for supervision of normal , unspecified, unspecified trimester (6) Nightmares: Status: Acute Category: Medical Code(s): F51.5 - Nightmare disorder (7) Insomnia: Status: Acute Category: Medical Code(s): G47.00 - Insomnia, unspecified (8) Grief at loss of child: Status: Acute Category: Medical Code(s): F43.21 - Adjustment disorder with depressed mood; Z63.4 - Disappearance and of family member (9) Anxiety: Status: Chronic Category: Medical Code(s): F41.9 - Anxiety disorder, unspecified (10) Depression: Status: Chronic Qualifiers: Depression Type: unspecified Qualified Code(s): F32.A - Depression, unspecified Category: Medical Code(s): F32.A - Depression, unspecified (11) Tobacco use: Status: Acute Category: Social Hx Code(s): Z72.0 - Tobacco use (12) Asthma: Status: Acute Qualifiers: Asthma severity: unspecified severity Asthma persistence: unspecified Asthma complication type: unspecified Qualified Code(s): J45.909 - Unspecified asthma, uncomplicated Category: Medical Code(s): J45.909 - Unspecified asthma, uncomplicated (13) Anemia: Status: Acute Category: Medical Code(s): D64.9 - Anemia, unspecified Plan - Monitor vitals - Admit to L&D for scheduled repeat delivery - External FHR and TOCO monitor - Blood type: A+ - Hemoglobin: 10.3, Plt: 416 - Plan for spinal anesthesia - Anticipate delivery of Male infant: Torin -Desires OCPs for contraception #Anemia -Normocytic likely physiologic anemia of -Will continue to follow this closely -Supplement with iron while inpatient #Grief at loss of a child #Anxiety #Depression -Continue to monitor closely and benefits counselor about depression/baby blues
[2024-04-01 12:25] LABS: Basophils # 0.1 K/mm3 (0-0.2); Basophils % 0.5 % (0.1-2.0); Eosinophils # 0.1 K/mm3 (0.0-0.4); Eosinophils % 0.4 % (0.1-12.0); Hematocrit 32.7 % (37.0-47.0); Hemoglobin 10.3 g/dL (12.2-16.2); Lymphocytes # 2.6 K/mm3 (0.7-4.5); Lymphocytes % 21.8 % (10-50); Mean Corpuscular HGB Conc 31.7 g/dL (31.8-35.4); Mean Corpuscular Hemoglobin 24.2 pg (27.0-31.2); Mean Corpuscular Volume 76.4 fl (81-99); Mean Platelet Volume 9.2 fl (7.4-10.4); Monocytes # 0.5 K/mm3 (0.1-1.0); Monocytes % 4.4 % (1.7-9.3); Neutrophils # 8.8 K/mm3 (1.8-7.8); Platelet Count 416 K/mm3 (142-424); Red Blood Count 4.28 M/mm3 (4.20-5.40); Red Cell Distribution Width 17.5 % (11.5-17.5)
--- NOTE | 2024-04-01 12:55 | P.CONPHA_ITS ---
Pharmacy Intervention Comments: MEDICATION RECONCILIATION COMPLETED ON PATIENT USING EXTERNAL FILL HISTORY FROM PHARMACY AND LIST FROM GAS APPLIANCE REPAIRER OFFICE. -NATALIE HAGEND
--- NOTE | 2024-04-01 12:55 | HMH.PHAINT1 ---
Pharmacy Intervention Comments: MEDICATION RECONCILIATION COMPLETED ON PATIENT USING EXTERNAL FILL HISTORY FROM PHARMACY AND LIST FROM TRAVEL MANAGER OFFICE. -NATALIE HAGEND
[2024-04-01] MEDS: LACTATED RINGERS 1000ML 1,000 ML 250 ML IV (13:24)
[2024-04-01 13:51] LABS: Chloride 107 mmol/L (98-107)
[2024-04-01 13:52] LABS: Potassium 3.7 mmoL/L (3.5-5.1); Sodium 135 mmol/L (136-145)
[2024-04-01 13:54] LABS: Blood Urea Nitrogen 8 mg/dl (7-17); Creatinine Clearance Estimated 308 mL/min (50-200); Estimated Glomerular Filt Rate 150 ml/min (>60); GFR (African American) 182 ML/MIN (>60)
[2024-04-01 13:55] LABS: Anion Gap 11.7 mEq/L (5-15); Carbon Dioxide 20 mmol/L (22.0-30.0); Glucose 101 mg/dl (74-100)
[2024-04-01] MEDS: LACTATED RINGERS 1000ML 1,000 ML 999 ML IV (14:35)
[2024-04-01] MEDS: CEFAZOLIN SODIUM 2 GM in 0.9 % SODIUM CHLORIDE 100 ML IV (15:54)
--- NOTE | 2024-04-01 16:36 | P.PNANES_ITS ---
[facility] Disclaimer: The information contained in this section may have been updated after the patient was seen, as this information can be updated by other users. Medical History Vaginal bleeding affecting early Ovarian cyst Acute blood loss anemia Vasovagal syncope Asthma Heartburn History of endometrial biopsy Screening for genetic disease carrier status 05/29/22 - [facility] carrier screen negative for 14 conditions tested including CF, Fragile X and SMA ASCUS with positive high risk HPV cervical Depression Anxiety Atypical chest pain Surgical History History of tonsillectomy History of Family History Other No significant family history Social History (Updated 04/01/24 @ 13:59 by Kathy Glynn RN) Smoking Status: Current every day smoker tobacco type: cigarettes packs per day: 1 second hand exposure: Yes alcohol intake: never counseling provided: none substance use type: former substance user and marijuana current occupational status: unemployed Travel in the last 8 weeks: None household members: family housing: house 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: No caffeine: Yes do you feel safe at home: Yes victim of physical abuse: No victim of emotional abuse: No victim of sexual abuse: No [facility] Anesthesia Checklist Patient Identification Patient Identification: Arm Band Structural Data Admitted From: Home Planned Operative Procedure/s: Repeat C/S Consent for Planned Operative Procedure(s) Verified: Yes Verified Documents: Surgical Consent and History and Physical NPO Status Verified Time NPO: 00:00 Additional verifications Anesthesia Reactions: No Hx Blood Transfusions: No Blood Transfusion Reaction: No Airway Assessment Mallampati Score:: Class II C-Spine Mobility Assessed: Yes TMJ Mobility Assessed: Yes Dentition: Good Dentition Neurological Assessment Level of Consciousness: Awake, Alert and Appropriate Anesthesia Plan Anesthesia Risk discussed: Yes Anesthesia Plan: Verified ASA Class: II Anesthesia Type: Spinal (with Bilateral TAP Block)
--- NOTE | 2024-04-01 16:38 | EXP.OP.NOTE ---
Date of procedure: 04/01/24 Pre-op Diagnosis:: 1. 38 weeks 3days gestation, Day 2. Regular painful contractions, labor with cervical change 3. Maternal obesity 4. Maternal tobacco use 6. Anemia of 7. Anxiety 8. Depression 9. Previous delivery, desires repeat 10. Rh+ Post-op Diagnosis:: 1. 38 weeks 3days gestation, Day 2. Regular painful contractions, labor with cervical change 3. Maternal obesity 4. Maternal tobacco use 6. Anemia of 7. Anxiety 8. Depression 9. Previous delivery, desires repeat 10. Rh+ Procedure performed:: Repeat Delivery Surgeon:: Deepika Salas DO Care Analyst(s):: Lynne Hilton DO MECHANICAL DESIGN ENGINEER FACILITIES:: Alfonso Parra Anesthesia: spinal Estimated blood loss (mL): 600 Operative findings:: 1. Live viable male infant: Torin. Weight: 9pounds 1ounces. Length: 20in. Apgars 8 and 9 at 1 and 5 minutes respectively 2. Normal-appearing fallopian tubes and ovaries bilaterally Operative note:: Medications: 2 g of Ancef Summary: Procedure explained in its entirety. The patient was counseled on the risks and benefits of section including bleeding, vascular injury, infection, and injury to the surrounding structures. Hemorrhage requiring life saving blood transfusion resulting in blood born viral infection or allergic reaction was explained and the patient consented to blood transfusion. Possible need for further operative measures prolonging recovery time and hospitalization reviewed to include hysterectomy. Procedure explained in its entirety and patient had no further questions. Consented to procedure. The patient was taken back to the operating room where adequate spinal anesthesia was obtained. Pneumatic compression stockings applied to lower extremities. Ancef 2g was given for infection prophylaxis. She was placed in the dorsal supine position Urinary catheter was placed and found to be draining clear urine. The patient was prepped and draped in sterile fashion. Anesthesia was tested and and found to be adequate. A Pfannenstiel skin incision was made with the scalpel at the level of her previous incision, the most recent superior incision. Subcutaneous bleeding vessels were cauterized with the bovie. The incision was taken down to the fascia with the bovie. The fascia was knicked in the midline and sharply extended laterally. The superior aspect of the fascia was grasped with Tio clamps and the rectus muscle was taken down with the Bovie. The rectus muscle was sharply dissected from the midline with Mayos. This process was repeated inferiorly. The rectus muscles were in the midline, peritoneum was identified and entered bluntly. Reddy O retractor was placed and the bladder was noted to be out of the operative field. A bladder flap was created with Metzenbaum scissors and [place] pickups. There is very minimal scarring noted. The lower uterine segment was easily identified, sharply incised, and entered bluntly with the surgeon's index finger. Incision was then extended in a superior and inferior fashion by blunt separation. Membranes were ruptured revealing copious clear fluid. The fetus was in cephalic presentation. The head was carefully elevated out of the pelvis. Fundal pressure was applied when head was brought into incision. The infants head was delivered without difficulty. The shoulder and body followed without complication. Delivery occurred at 1601. The mouth and nose were suctioned with a bulb. The umbilical cord was clamped and cut. Infant was taken to warmer for evaluation by the [employer] business, Dr. Figueroa. Cord blood was collected. The placenta was delivered via fundal massage and found to be normal and intact. IV Pitocin was initiated. Inside of the uterus was gently cleared of blood and clots with lap sponge. The hysterotomy was closed with 0 Vicryl in a running locked fashion. There is a small amount of bleeding at the right apex of the hysterotomy. This was made hemostatic with [id number]. The lower uterine segment was visualized and noted to be hemostatic. The ovaries and tubes were found to be normal. The posterior aspect of the uterus was cleared of blood clot with a damp lap sponge. The gutters were inspected bilaterally and cleared of blood and clots with lap sponges. The uterine incision was reinspected and hemostasis noted. Reddy O retractor was removed. The peritoneum was reapproximated using a 2-0 Monocryl in a nonlocked running fashion. The fascia was closed in a running nonlocked fashion using 0 Vicryl x2 meeting right of midline. Fascia was noted as not having gaps or defects. The subcutaneous fat was closed with Vicryl running nonlocked stitch in 2 layers. Skin was closed with the INSORB suture in a subcuticular fashion. Patient tolerated the procedure well and all counts were correct x3, per nursing. Patient will receive tap blocks and then be transported to the OB PACU for recovery and infant bonding. Condition: stable Disposition: PACU Complications:: None
--- NOTE | 2024-04-01 17:00 | EXP.ANES.I ---
[facility] Anesthesia Record Part I Anesthesia Record I Intake, IV Amount: 1,500 Hydration: Adequate Estimated blood loss (mL): 600 Urine output (mL): 250 Blood Pressure: 96/56 SaO2: 98 Pulse Rate: 70 Airway Patency: Patent Respiratory Rate: 14 Temperature: 98 F Patient is:: Awake and Stable Stable to PACU at:: 16:50
[2024-04-01 17:17] LABS: Microscopic,Cath URINE MICROSCOPIC (MICROSCOPIC)
[2024-04-01] MEDS: LACTATED RINGERS 1000ML 1,000 ML 125 ML IV (17:32)
[2024-04-01] MEDS: OXYTOCIN/RINGERS LACTATE 30 UNITS/500 ML BAG 40 UNITS IV (17:32)
[2024-04-01 17:50] LABS: Appearance,Urine/Cath CLEAR (Clear); Bilirubin,Cath Negative (Negative); Blood, Urine/Cath Negative (Negative); Color,Urine/Cath YELLOW (Yellow); Glucose,Urine/Cath (UA) Negative (Negative); Ketones,Urine/Cath Negative (Negative); Leukocyte Esterase,Cath Negative (Negative); Nitrate,Cath Negative (Negative); PH,Urine/Cath 6.5 (5.0-8.5); Protein,Urine/Cath Negative (Negative)
[2024-04-01] MEDS: ACETAMINOPHEN 500MG TAB 1000 MG PO (22:34)
[2024-04-01] MEDS: SIMETHICONE 80MG CHEWABLE TABLET 160 MG PO (23:59)
[2024-04-02] MEDS: LACTATED RINGERS 1000ML 1,000 ML 125 ML IV (01:28)
[2024-04-02] MEDS: SIMETHICONE 80MG CHEWABLE TABLET 160 MG PO ×2 (04:58→18:39)
[2024-04-02] MEDS: KETOROLAC 30MG/ML VIAL 30 MG IV (05:32)
[2024-04-02 07:18] LABS: Basophils # 0.1 K/mm3 (0-0.2); Basophils % 0.4 % (0.1-2.0); Eosinophils # 0.1 K/mm3 (0.0-0.4); Eosinophils % 0.8 % (0.1-12.0); Hematocrit 30.5 % (37.0-47.0); Hemoglobin 9.6 g/dL (12.2-16.2); Lymphocytes # 3.3 K/mm3 (0.7-4.5); Lymphocytes % 31.1 % (10-50); Mean Corpuscular HGB Conc 31.6 g/dL (31.8-35.4); Mean Corpuscular Hemoglobin 24.6 pg (27.0-31.2); Mean Corpuscular Volume 77.8 fl (81-99); Mean Platelet Volume 9.2 fl (7.4-10.4); Monocytes # 0.5 K/mm3 (0.1-1.0); Monocytes % 5.1 % (1.7-9.3); Neutrophils # 6.7 K/mm3 (1.8-7.8); Neutrophils % 62.5 % (37.0-80.0); Platelet Count 398 K/mm3 (142-424); Red Blood Count 3.93 M/mm3 (4.20-5.40); Red Cell Distribution Width 17.7 % (11.5-17.5); White Blood Count 10.7 K/mm3 (4.8-10.8)
[2024-04-02 08:18] VITALS: BP 117/57; PULSE 71; RESP 16; TEMP 36.6; O2SAT 99
--- NOTE | 2024-04-02 08:21 | P.PNANES_ITS ---
[facility] Anesthesia Record Part II Anesthesia Record Part II Discharge Time: 17:21 Destination: Obstetric PACU nurse assessment reviewed?: Yes Patient Condition:: Good Anesthesia Complications:: None Swallowing reflex intact?: Yes Airway Patency: Patent Cyanosis?: No Blood Pressure: 110/68 SaO2: 98 Respiratory Rate: 18 Pulse Rate: 74 Temperature: 97.2 F Mental Status: Alert & Oriented Pain level:: 0 Nausea and/or vomitting:: None Intake, IV Amount: 0 Hydration: Adequate
[2024-04-02 08:22] VITALS: BP 110/68; PULSE 74; RESP 18; TEMP 36.2; O2SAT 98
[2024-04-02] MEDS: ACETAMINOPHEN 500MG TAB 1000 MG PO ×2 (12:24→20:40)
[2024-04-02] MEDS: IBUPROFEN 400 MG TABLET 800 MG PO ×2 (12:24→20:40)
[2024-04-02] MEDS: PANTOPRAZOLE 40MG TABLET 40 MG PO (12:25)
--- NOTE | 2024-04-02 12:28 | P.PN_ITS ---
Subjective *Date: 04/02/24 *Time: 12:28 Interval history: POD # 1 s/p RLTCS Feeling okay. Pain not well controlled but she is not wanting to take pain medication. Lochia is appropriate. Formula feeding. Voiding without difficulty and passing flatus. Tolerating regular diet. Denies fever/chills, chest pain and shortness of breath. No headaches, vision changes, RUQ pain or swelling. Ambulating well ad luis. Medical Exam Vital signs and Labs for Last 24 Hours: Vital Signs Temp Pulse Pulse Resp BP BP Pulse Ox 04/02/24 08:22 18 04/02/24 08:18 97.9 F 71 16 117/57 L 99 04/01/24 17:40 98.3 F 82 16 117/64 97 04/01/24 17:21 74 18 110/68 98 04/01/24 17:10 64 18 106/61 L 98 04/01/24 17:02 98 F 70 14 96/56 L 04/01/24 17:00 98.0 F 64 18 106/61 L 98 04/01/24 16:50 98.0 F 61 19 96/56 L 97 04/01/24 14:00 98.2 F 85 18 98/64 L 98 04/01/24 13:52 98.1 F 116 H 20 103/66 L 97 O2 Del Method 04/02/24 08:22 04/02/24 08:18 Room Air 04/01/24 17:40 Room Air 04/01/24 17:21 Room Air 04/01/24 17:10 Room Air 04/01/24 17:02 04/01/24 17:00 Room Air 04/01/24 16:50 Room Air 04/01/24 14:00 Room Air 04/01/24 13:52 Room Air Intake and Output 04/01/24 04/02/24 04/02/24 23:59 07:59 15:59 Intake Total 1500 / 1500 0 / 0 Output Total 750 / 750 650 / 650 Balance 750 / 750 -650 / -650 0 / -650 Intake: Intake, Total IV Amount 1500 / 1500 0 / 0 Output: Output, Urine Amount (Catheter) 750 / 750 650 / 650 Ortiz 750 / 750 650 / 650 Laboratory Results - last 24 hr 04/01/24 12:07: WBC 12.0 H, RBC 4.28, Hgb 10.3 L, Hct 32.7 L, MCV 76.4 L, MCH 24.2 L, MCHC 31.7 L, RDW 17.5, Plt Count 416, MPV 9.2, Neut % (Auto) 73.0, Lymph % (Auto) 21.8, [place] % (Auto) 4.4, Eos % (Auto) 0.4, Baso % (Auto) 0.5, Neut # (Auto) 8.8 H, Lymph # (Auto) 2.6, [place] # (Auto) 0.5, Eos # (Auto) 0.1, Baso # (Auto) 0.1, Sodium 135 L, Potassium 3.7, Chloride 107, Carbon Dioxide 20 L, Anion Gap 11.7, BUN 8, Creatinine 0.50 L, Estimated Creat Clear 308 H, Estimated GFR 150, Est GFR ( Amer) 182, Glucose 101 H, Calcium 9.0, Blood Type A Positive, Antibody Screen Negative 04/01/24 15:30: Urine Color Yellow, Urine Appearance Clear, Urine pH 6.5, Ur Specific [place] 1.020, Urine Protein Negative, Urine Glucose (UA) Negative, Urine Ketones Negative, Urine Blood Negative, Urine Nitrate Negative, Urine Bilirubin Negative, Urine Urobilinogen 1.0, Ur Leukocyte Esterase Negative, Urine RBC None, Urine WBC None, Ur Squamous Epith Cells None, Urine Bacteria None 04/02/24 06:44: WBC 10.7, RBC 3.93 L, Hgb 9.6 L, Hct 30.5 L, MCV 77.8 L, MCH 24.6 L, MCHC 31.6 L, RDW 17.7 H, Plt Count 398, MPV 9.2, Neut % (Auto) 62.5, Lymph % (Auto) 31.1, [place] % (Auto) 5.1, Eos % (Auto) 0.8, Baso % (Auto) 0.4, Neut # (Auto) 6.7, Lymph # (Auto) 3.3, [place] # (Auto) 0.5, Eos # (Auto) 0.1, Baso # (Auto) 0.1 I & O for Labs for Last 24 Hours: Intake & Output 06/17/24 06/18/24 06/19/24 06/20/24 23:59 23:59 23:59 23:59 Intake Total 1500 / 1500 0 / 0 Output Total 750 / 750 650 / 650 Balance 750 / 750 -650 / -650 Weight 268 lb Head: Present atraumatic and normocephalic ENT: Present mucous membranes moist Neck: Present normal inspection Respiratory: Present CTA bilaterally and normal respiratory effort Cardiac: Present Reg Rate and Rhythm GI: Present soft and normal bowel sounds; Absent distention or tenderness Comments:: Uterine fundus firm and below umbilicus, pfannenstiel incision clean/dry/intact with steri strips in place Rectal (female): Present deferred (female): Present deferred Extremities: Present normal inspection; Absent edema or calf tenderness Neuro: Present alert, awake and moves all extremities Assessment and Plan *Assessment and plan (1) S/P : Status: Chronic Category: Surgical Code(s): Z98.891 - History of uterine scar from previous surgery (2) 38 weeks gestation of : Status: Acute Category: Medical Code(s): Z3A.38 - 38 weeks gestation of (3) Onset (spontaneous) of labor after 37 completed weeks of gestation but before 39 completed weeks gestation, with delivery by (planned) section: Status: Acute Category: Medical Code(s): O75.82 - Onset (spontaneous) of labor after 37 completed weeks of gestation but before 39 completed weeks gestation, with delivery by (planned) section (4) Maternal obesity affecting , antepartum: Status: Acute Category: Medical Code(s): O99.210 - Obesity complicating , unspecified trimester (5) Tobacco use affecting , antepartum: Status: Chronic Category: Medical Code(s): O99.330 - Smoking (tobacco) complicating , unspecified trimester (6) History of : Status: Chronic Category: Surgical Code(s): Z98.891 - History of uterine scar from previous surgery (7) Anemia: Status: Acute Qualifiers: Anemia type: unspecified type Qualified Code(s): D64.9 - Anemia, unspecified Category: Medical Code(s): D64.9 - Anemia, unspecified Plan Continue routine /post op care Encouraged increased ambulation Start ferrous sulfate 325 mg PO daily Plan d/c home POD # 2 or POD # 3
[2024-04-02] MEDS: PRENATAL MULTIVITAMIN W/IRON 1 EACH PO (17:02)
[2024-04-02] MEDS: FERROUS SULFATE 325MG TABLET 325 MG PO (17:02)
[2024-04-02] MEDS: SENNA 8.6MG TABLET 8.59999999999999964 MG PO (20:40)
[2024-04-03] MEDS: SIMETHICONE 80MG CHEWABLE TABLET 160 MG PO ×2 (04:31→08:10)
[2024-04-03] MEDS: ACETAMINOPHEN 500MG TAB 1000 MG PO ×2 (04:31→11:53)
[2024-04-03] MEDS: IBUPROFEN 400 MG TABLET 800 MG PO ×2 (04:32→11:53)
[2024-04-03 08:09] VITALS: BP 138/65; PULSE 84; RESP 17; TEMP 36.7; O2SAT 99
[2024-04-03] MEDS: SENNA 8.6MG TABLET 8.59999999999999964 MG PO (08:09)
[2024-04-03] MEDS: FERROUS SULFATE 325MG TABLET 325 MG PO (08:10)
[2024-04-03] MEDS: PANTOPRAZOLE 40MG TABLET 40 MG PO (08:10)
--- NOTE | 2024-04-03 11:32 | EXP.DC.SUM ---
General Admission date:: 04/01/24 Discharge date: 04/03/24 HPI HPI HPI: Bernarda Domínguez is a 23yo -0-0-1 who presented to labor and delivery at 38 weeks and 3 days gestation with regular painful contractions. She was noted to have made cervical change from her previous exam. She continued to have regular painful contractions and decision was made to proceed with a repeat delivery. The patient declines tubal ligation. She last ate at 8:00 this morning. Her has been complicated by vaginal bleeding early in with a previa that resolved, tobacco use, obesity, anxiety, depression, and anemia. On presentation the patient endorsed good movement, denies any leakage of fluid or vaginal bleeding. Endorsed regular painful contractions A+, antibody negative, rubella immune, hepatitis B negative, hepatitis C negative, RPR negative, HIV negative 1 hour GTT: 159 3-hour GTT: 107/157/115/124, passed GBS unknown Hospital Course Hospital Course Hospital Course: Bernarda Domínguez is a 23-year-old G3, P3 postop day #2 from a repeat low-transverse delivery at 38 weeks and 3 days gestation secondary to presentation in active labor with regular painful contractions and cervical change. She was rubella immune and GBS unknown. Her blood type was a positive. She delivered a live viable male weighing 9 pounds and 1 ounces with and length of 20 inches. Apgars were 8 and 9. She is bottlefeeding without difficulty. She is ambulating, tolerating p.o., and voiding. Throughout her postoperative course she has not required any narcotic pain medicine and states that her pain is well-controlled. Reports her bleeding is scant. Routine postop instructions reviewed with the patient in detail and she voiced understanding. Specifically I discussed signs of infection to include endometritis, signs of depression/baby blues, and signs/symptoms of reasons to return to care sooner than her 2-week follow-up appointment. The patient voiced understanding. She will follow-up with Dr. Hilton for a routine visit and incision check. Exam Data for Last 24 hours Vital signs and Labs for Last 24 Hours: Temp Pulse Resp BP Pulse Ox O2 Del Method 98.0 F 84 17 138/65 99 Room Air 04/03/24 08:09 04/03/24 08:09 04/03/24 08:09 04/03/24 08:09 04/03/24 08:09 04/03/24 08:09 Temp Pulse Resp BP Pulse Ox 98.1 F 86 16 122/56 L 97 11/22/22 04:00 11/22/22 04:00 11/22/22 04:00 11/22/22 04:00 11/22/22 04:00 I & O for Last 24 hours: Intake & Output 03/31/24 04/01/24 04/02/24 04/03/24 23:59 23:59 23:59 23:59 Intake Total 1500 / 1500 0 / 0 Output Total 750 / 750 650 / 650 Balance 750 / 750 -650 / -650 Weight 268 lb Intake & Output 11/19/22 11/20/22 11/21/22 11/22/22 23:59 23:59 23:59 23:59 Intake Total 1000 / 1000 Output Total 650 / 650 Balance 350 / 350 Weight 281 lb Microbiology Reports for the Last 24 Hours: Microbiology 11/20/22 04:28 Urine,Clean Catch Urine Culture - Final NO GROWTH AFTER 48 HOURS 11/20/22 07:23 Urine,[place] Urine Culture - Preliminary NO GROWTH AFTER 24 HOURS Constitutional Constitutional: no acute distress and cooperative *Routine HEENT Exam Head: Present normocephalic and atraumatic Eye: Absent conjunctivae pink ENT: Present mucous membranes moist and dentition normal *Routine Neck Exam Neck: Present full ROM *Routine Respiratory Exam Respiratory: Present CTA bilaterally and normal respiratory effort *Routine Cardiovascular Exam Cardiovascular: Present RRR *Routine Abdominal Exam Abdominal: Present soft and normoactive bowel sounds; Absent tenderness or distended Comments: Uterine fundus firm and below umbilicus, Pfannenstiel incision clean/dry/intact. Steri strips in place. *Routine Rectal Exam Patient deferred: visual exam *Routine Exam Patient deferred: external exam *Routine Extremities Exam Extremities: Present full ROM; Absent edema or calf tenderness Routine Psychiatric Exam Psychiatric: Present normal affect and cooperative DS: Diagnosis Discharge Diagnosis (1) S/P : Status: Chronic Code(s): Z98.891 - History of uterine scar from previous surgery (2) 38 weeks gestation of : Status: Acute Code(s): Z3A.38 - 38 weeks gestation of (3) Onset (spontaneous) of labor after 37 completed weeks of gestation but before 39 completed weeks gestation, with delivery by (planned) section: Status: Acute Code(s): O75.82 - Onset (spontaneous) of labor after 37 completed weeks of gestation but before 39 completed weeks gestation, with delivery by (planned) section (4) Maternal obesity affecting , antepartum: Status: Acute Code(s): O99.210 - Obesity complicating , unspecified trimester (5) Tobacco use affecting , antepartum: Status: Chronic Code(s): O99.330 - Smoking (tobacco) complicating , unspecified trimester (6) History of : Status: Chronic Code(s): Z98.891 - History of uterine scar from previous surgery (7) Anemia: Status: Acute Code(s): D64.9 - Anemia, unspecified Qualifiers: Anemia type: unspecified type Qualified Code(s): D64.9 - Anemia, unspecified Meds Home Medications and Allergies Home Medications Medication Instructions Recorded Confirmed Type vits no.126-ferrous fum 1 tab PO DAILY 09/09/23 04/01/24 History 28 mg iron-folic acid 800 mcg tablet (Classic ) pantoprazole 40 mg tablet,delayed 40 mg PO DAILY #30 tabs 01/21/24 04/01/24 Rx release (Protonix) ondansetron 4 mg disintegrating 4 mg PO Q6HP PRN nausea and 04/01/24 04/01/24 History tablet vomiting acetaminophen 500 mg tablet 500 mg PO Q6H PRN fever #30 tabs 04/03/24 Rx ferrous sulfate 325 mg (65 mg 325 mg PO DAILY #30 tabs 04/03/24 Rx iron) tablet,delayed release ibuprofen 800 mg tablet 800 mg PO Q8H PRN pain #60 tabs 04/03/24 Rx oxycodone 5 mg tablet 5 mg PO Q8H PRN pain #10 tabs 04/03/24 Rx sennosides 8.6 mg tablet (Senna 8.6 mg PO BIDP PRN Constipation 04/03/24 Rx Lax) #60 tabs simethicone 125 mg tablet 125 mg PO DAILY PRN abdominal 04/03/24 Rx distention #60 tabs New Prescriptions to Start Prescriptions: acetaminophen Josue,Deepika ferrous sulfate Josue,Deepika ibuprofen JosueDeepika ferguson oxycoDeepika Lyons sennosides [Senna Lax] Deepika Salas simethicone Deepika Salas Allergies Allergy/AdvReac Type Severity Reaction Status Date / Time No Known Allergies Allergy Verified 03/31/24 13:58 Discharge Plan Disposition Patient Disposition: Home, Self-Care Discharge Order Discharge Orders: Discharge Order (Routine); Ordered 04/03/24 Ordered By: Deepika Salas Follow up Plan Follow up with: Lynne Hilton DO [Staff Physician] - 2 weeks Prescriptions/Medication Reconciliation: New sennosides [Senna Lax] 8.6 mg Tablet 8.6 mg PO BIDP PRN (Reason: Constipation) Qty: 60 2RF ibuprofen 800 mg tablet 800 mg PO Q8H PRN (Reason: pain) Qty: 60 2RF acetaminophen 500 mg tablet 500 mg PO Q6H PRN (Reason: fever) Qty: 30 3RF ferrous sulfate 325 mg (65 mg iron) tablet,delayed release (DR/EC) 325 mg PO DAILY Qty: 30 3RF oxycodone 5 mg tablet 5 mg PO Q8H PRN (Reason: pain) Qty: 10 0RF simethicone 125 mg tablet 125 mg PO DAILY PRN (Reason: abdominal distention) Qty: 60 2RF Continued Classic 28 mg iron- 800 mcg tablet 1 tab PO DAILY pantoprazole [Protonix] 40 mg tablet,delayed release (DR/EC) 40 mg PO DAILY Qty: 30 2RF ondansetron 4 mg tablet,disintegrating 4 mg PO Q6HP PRN (Reason: nausea and vomiting) Problem Reconciliation Problems Reviewed?: Yes Patient Discharge Instructions ACTIVITY: Continue current activity DIET: regular diet Additional Instructions: Congratulations on the delivery of your sweet baby boy. It is my privilege to be a part of your CRITICAL CARE NURSE PRACTITIONER team and I am so thankful I could be a part of your special day. Discharge: 1. Take 800 mg Ibuprofen every 8 hours as needed for pain. You can also take 500-1000 mg of Tylenol in between doses, every 6-8 hours. Use prescription pain medicine for pain you feel in between 8 hour interval. -No driving while taking narcotic pain medications. In order to drive you should be able to slam on the brakes without significant abdominal pain. 2. Wean from prescription pain medicine first. Do not drive while taking it. 3. Prescription pain medicine can make you constipated. Colace can be taken 1-2 times per day as you need. Make sure to drink at least 8 cups of water per day. 4. Iron supplements can make you constipated. Colace can be taken 1-2 times per day as you need. You can take iron tablets every other day if constipation is too bad. 5. Nothing in the vagina for 6 weeks - no sex, douching, tampons. No tub baths 6. Do not lift greater than 15 pounds for 6 weeks, this is the equivalent of 2 gallons of milk. 7. Reasons to return to L&D or call On-Call doctor - fever (greater than 100.4) - heavy vaginal bleeding (soaking through 1 pad in less than 2 hours or passing clots that are egg sized) - vaginal discharge (malodorous and/or purulent) - bleeding or discharge from her incision - severe headaches, leg tenderness/edema, or any other symptoms that warrant immediate medical attention. 8. depression/blues - Normal to feel anxious/overwhelmed for first 2 weeks - Talk to your doctor if: anxiety lasts over 2 weeks, trouble bonding with baby, withdrawing from other family members, thoughts of harming yourself or others Deepika Salas DO [facility] [phone] *Nothing in the Vagina for 6 weeks* *No strenuous activity* *No heavy lifting* *No tub baths until okay's by MD* Providers Primary Care Provider: Roxana Bryant Admit Provider: Deepika Salas Attending Provider: Deepika Salas
[2024-04-03 16:21] VITALS: BP 133/60; PULSE 75; RESP 19; TEMP 36.6; O2SAT 98
== END 2024-04-03 17:11 | disposition home or self-care (01) | DRG 788 ==
LOC: OBOUT 12:44 → OB 12:44
PROVIDERS: Obstetrics & Gynecology; Admitting Provider Obstetrics & Gynecology; PCP Physician Assistant; Visit Provider Obstetrics & Gynecology
DX: O99.214 Obesity complicating childbirth (principal); Z3A.38 38 weeks gestation of pregnancy; Z37.0 Single live birth; O99.344 Other mental disorders complicating childbirth; F32.A Depression, unspecified; F41.9 Anxiety disorder, unspecified; O99.334 Smoking (tobacco) complicating childbirth; F17.210 Nicotine dependence, cigarettes, uncomplicated; Z63.4 Disappearance and death of family member; O34.211 Maternal care for low transverse scar from previous cesarean delivery; O99.02 Anemia complicating childbirth
CPT/HCPCS: 59514; 36415; 59025; 80048; 81001; 85025; 86850; 94761; G0283; J1885; J2405; J3010; J7120

== ENCOUNTER 2025-04-26 09:09 | Emergency (ER) | payer SELFPAY ==
[2025-04-26 09:10] VITALS: BP 119/60; PULSE 75; RESP 18; TEMP 36.9; O2SAT 99; BMI 37.2
--- NOTE | 2025-04-26 09:38 | [facility].EDGENADL ---
Discharge Plan Disposition Patient Disposition: Home, Self-Care Condition: Good Prescriptions Prescriptions: New methocarbamol 500 mg tablet 500 mg PO Q8H Qty: 30 0RF lidocaine 5 % adhesive patch,medicated 3 patch topical Q24H Qty: 15 0RF Rx Instructions: leave on most painful area for up to 12 hrs No Action Classic 28 mg iron- 800 mcg tablet 1 tab PO DAILY sertraline 100 mg tablet 100 mg PO DAILY Qty: 30 2RF levonorgestrel-ethinyl estrad [Aviane] 0.1-20 mg-mcg tablet 1 tab PO DAILY Qty: 84 4RF Referrals Follow up/Referrals: Roxana Bryant PA [Primary Care Provider, Medical] - See instructions Activity Restrictions/Add. Instructions Additional Instructions/Restrictions: Take Tylenol, ibuprofen [id number] in addition to Robaxin and the lidocaine patches for your symptoms. Return to the emergency department if you have severe uncontrolled pain, develop any neurologic symptoms such as numbness or weakness. You can use heat and ice as needed use stretching to help alleviate your symptoms. Otherwise follow-up with your primary care provider. Clinical Impressions Clinical Impression: Back pain, Sciatica Instructions Patient Instructions: DI for Low Back Pain Print Language Print Language: Lithuanian Discharge ED Provider: Becky Monson Adult HPI General Chief complaint: Back Pain/Injury Stated complaint: Back pain-no accident Time Seen by Provider: 04/26/25 09:11 History of Present Illness HPI narrative: Patient is a 24-year-old otherwise healthy female who presented to the emergency department with right paraspinal and lumbar back pain. Patient states that her pain started this morning. Patient reports radiation into the right lower extremity. Patient reports pain is worse with movement. Patient has not had any falls or trauma. Patient has not had any fevers. Patient has no history of IV drug use. Patient has had no numbness or weakness. Patient states that she was working extensively outside yesterday and patient also moves heavy boxes for work. Patient has not had any prior surgeries, patient only takes oral contraceptive. Patient has not taken any medications at home for her symptoms. Patient has not had any difficulties ambulating. Related Data Home Medications ?Medication ?Instructions ?Recorded ?Confirmed vits no.[id number]-ferrous fum 1 tab PO DAILY 09/09/23 06/17/24 28 mg iron-folic acid 800 mcg tablet (Classic ) Previous Rx's ?Medication ?Instructions ?Recorded levonorgestrel-ethinyl estradiol 1 tab PO DAILY #84 tabs 05/22/24 0.1 mg-20 mcg tablet (Aviane) sertraline 100 mg tablet 100 mg PO DAILY #30 tabs 06/17/24 lidocaine 5 % topical patch 3 patch topical Q24H #15 ea 04/26/25 methocarbamol 500 mg tablet 500 mg PO Q8H #30 tabs 04/26/25 Allergies Allergy/AdvReac Type Severity Reaction Status Date / Time No Known Allergies Allergy Verified 06/17/24 13:41 [facility] Disclaimer: The information contained in this section may have been updated after the patient was seen, as this information can be updated by other users. Medical History (Updated 04/26/25 @ 10:36 by Becky Monson DO) ASCUS with positive high risk HPV cervical depression Ovarian cyst Acute blood loss anemia Vasovagal syncope Asthma Heartburn History of endometrial biopsy Depression Anxiety Atypical chest pain Surgical History History of tonsillectomy History of Family History Other No significant family history Social History Smoking Status: Current every day smoker tobacco type: cigarettes packs per day: 1 second hand exposure: Yes alcohol intake: never counseling provided: none substance use type: former substance user and marijuana current occupational status: unemployed Travel in the last 8 weeks?: None household members: family housing: house current occupation: [employer] home current occupational exposures/hazards: No caffeine: Yes do you feel safe at home: Yes victim of physical abuse: No victim of emotional abuse: No victim of sexual abuse: No Have you lived/traveled outside [place] in past 30 days?: No Contact w/someone who lives/traveled outside [place] past 30 days?: No Exposure to someone with infectious disease in past 14 days?: No Do you have a fever (greater than 100.4 F or 38 C)?: No Have you tested positive for COVID-19?: No Exposed to someone with COVID-19 in past 14 days?: No Do you have a sore throat?: No Do you have a cough?: No Do you have any weakness?: No Do you have any diarrhea?: No Are you experiencing any unusual bleeding?: No Do you have any muscle aches/pain?: No Do you have any abdominal pain?: No Are you experiencing loss of taste or smell?: No Other Medical History Have you received the Flu Vaccine for this season: No Have you received the Pneumonia Vaccine: Yes (x1) ROS Obtained: Yes All systems reviewed & no additional complaints except as documented and Yes Systems reviewed as appropriate & no additional complaints except as documented Physical Exam General General appearance: alert and in no apparent distress Head Head exam: atraumatic, normocephalic and normal inspection Eye Eye exam: Present normal appearance, PERRL and EOMI; Absent scleral icterus ENT ENT exam: Present normal exam and normal external ear exam Neck Neck exam: Present normal inspection and full ROM Chest Chest inspection: Present normal inspection and symmetric chest wall rise Respiratory Respiratory exam: Present normal lung sounds bilaterally; Absent respiratory distress or wheezes Cardiovascular Cardiovascular exam: Present regular rate, normal rhythm and normal heart sounds Abdominal Exam Abdominal exam: Present soft and distention; Absent tenderness, guarding or rebound Extremities Exam Extremities exam: Present normal inspection and full ROM Back Exam Back exam: Present normal inspection, full ROM, paraspinal tenderness (Right sided paraspinal tenderness, right SI joint tenderness, mild lumbar spine tenderness) and other Neurological Exam Neurological exam: Present alert, oriented X3, normal gait and reflexes normal; Absent motor sensory deficit Psychiatric Psychiatric exam: Present normal affect and normal mood Skin Skin exam: Present warm and dry Medical Decision Making Medical Records Screening: Per USPSTF and CDC recommendations, given the prevalence of disease in our region, it is our hospital?s policy to screen for HIV and viral Hepatitis for all patients aged 18 and over and those with ongoing risk factors. Sandip Inquiry Pt receiving controlled substance: No Vital Signs: 04/26/25 09:10 Temperature 98.4 F Temperature Source Oral Pulse Rate [Radial] 75 Respiratory Rate 18 Blood Pressure [Right Arm] 119/60 Blood Pressure Mean [Right Arm] 79 Blood Pressure Source [Right Arm] Automatic Cuff Blood Pressure Position [Right Arm] Sitting 02 Sat by Pulse Oximetry 99 Oxygen Delivery Method Room Air Lab Data Lab results reviewed: Yes I reviewed the patient's lab results. Orders (Tests/Meds): ED MEDICATIONS Discontinued Medications Generic Name Dose Route Start Last Admin Trade Name Freq PRN Reason Stop Dose Admin Acetaminophen 1,000 mg 04/26/25 09:52 04/26/25 10:03 Acetaminophen 500mg Tab PO 04/26/25 09:53 1,000 mg ONCE ONE Administration Ketorolac Tromethamine 30 mg 04/26/25 09:51 04/26/25 10:03 Ketorolac 30mg/Ml Vial IM 04/26/25 09:52 30 mg ONCE ONE Administration Lidocaine 1 each 04/26/25 09:52 04/26/25 10:04 Lidocaine 5% Transdermal Patch TD 04/26/25 09:53 1 each ONCE ONE Administration Methocarbamol 500 mg 04/26/25 09:52 04/26/25 10:04 Methocarbamol 500mg Tablet PO 04/26/25 09:53 500 mg BID ONE Administration ORDERS Category Date Time Status HIV Combo Stat Lab 04/26/25 09:47 Ordered Hepatitis C Ab Qual. W/ RFX Stat Lab 04/26/25 09:47 Ordered Medical Decision Narrative: Patient is a 24-year-old female with no significant past medical history who presented to the emergency department with right sided paraspinal back pain as well as lumbar spine pain. On arrival, patient is hemodynamically stable with unremarkable vital signs. Differential includes but not limited to: Musculoskeletal spasm, sciatica, fracture, dislocation, amongst others. On exam, patient had right sided SI joint tenderness, right sided paraspinal tenderness with some midline lumbar spine tenderness. Given patient's radiculopathy into the right lower extremity, a component of musculoskeletal spasm and sciatica is likely. Patient had no trauma or falls therefore concern for fracture or dislocation is low. I did not feel that imaging was warranted at this time. Patient was treated symptomatically in the emergency department with Toradol, Tylenol, Robaxin and a lidocaine patch. Patient was sent with medications to continue at home. Patient has no other red flag symptoms for her back pain. At this time, patient was discharged home in stable condition. Critical Care Critical Care Time Critical Care Time: No
--- NOTE | 2025-04-26 09:48 | PC.NURSE ---
DR GALDAMEZ AT BEDSIDE
[2025-04-26] MEDS: KETOROLAC 30MG/ML VIAL 30 MG IM (10:03)
[2025-04-26] MEDS: ACETAMINOPHEN 500MG TAB 1000 MG PO (10:03)
[2025-04-26] MEDS: METHOCARBAMOL 500MG TABLET 500 MG PO (10:04)
[2025-04-26] MEDS: LIDOCAINE 5% TRANSDERMAL PATCH 1 EACH TD (10:04)
[2025-04-26 10:55] VITALS: BP 120/63; PULSE 56; RESP 18; TEMP 36.8; O2SAT 97
== END 2025-04-26 10:55 | disposition home or self-care (01) ==
PROVIDERS: Emergency Provider Student in an Organized Health Care Education/Training Program; PCP Physician Assistant
DX: M54.41 Lumbago with sciatica, right side (principal); F17.210 Nicotine dependence, cigarettes, uncomplicated
CPT/HCPCS: 96372; 99283; J1885

== ENCOUNTER 2025-06-06 10:02 | Outpatient (CLI) | payer SELFPAY ==
[2025-06-06 22:04] LABS: Coronavirus 19, PCR Not Detected (NotDetected); Influenza A, PCR Not Detected (NotDetected); Influenza B, PCR Not Detected (NotDetected)
== END 2025-06-06 23:59 | disposition home or self-care (01) ==
LOC: LAB.DROPOF 06-07 12:37
PROVIDERS: PCP Student in an Organized Health Care Education/Training Program; Visit Provider Student in an Organized Health Care Education/Training Program
DX: R52 Pain, unspecified (principal)
CPT/HCPCS: 87636

== ENCOUNTER 2025-06-09 08:24 | Outpatient (CLI) | payer SELFPAY | END 2025-06-09 23:59 | disposition home or self-care (01) | LOC: LAB 08:26 | PROVIDERS: PCP Physician Assistant; Visit Provider Obstetrics & Gynecology | DX: Z34.90 Encounter for supervision of normal pregnancy, unspecified, unspecified trimester (principal); N92.6 Irregular menstruation, unspecified; Z3A.00 Weeks of gestation of pregnancy not specified | CPT/HCPCS: 36415; 84144; 84702 ==

== ENCOUNTER 2025-08-18 09:31 | Outpatient (CLI) | payer SELFPAY ==
[2025-08-18 15:03] LABS: Coronavirus 19, PCR Not Detected (NotDetected); Influenza A, PCR Not Detected (NotDetected); Influenza B, PCR Not Detected (NotDetected)
== END 2025-08-18 23:59 | disposition home or self-care (01) ==
LOC: LAB.DROPOF 08-19 20:08
PROVIDERS: PCP Physician Assistant; Visit Provider Student in an Organized Health Care Education/Training Program
DX: R52 Pain, unspecified (principal)
CPT/HCPCS: 87631

== ENCOUNTER 2025-08-30 10:31 | Outpatient (CLI) | payer SELFPAY ==
[2025-08-30 17:35] LABS: Coronavirus 19, PCR Not Detected (NotDetected); Influenza A, PCR Not Detected (NotDetected); Influenza B, PCR Not Detected (NotDetected)
== END 2025-08-30 23:59 | disposition home or self-care (01) ==
LOC: LAB.DROPOF 08-31 08:56
PROVIDERS: PCP Physician Assistant; Visit Provider Nurse Practitioner
DX: J06.9 Acute upper respiratory infection, unspecified (principal); J02.9 Acute pharyngitis, unspecified
CPT/HCPCS: 87631